=== PATIENT | male | born 1955 | race Caucasian/White ===

== ENCOUNTER 2023-01-31 10:38 | Emergency (ER) | payer MEDICARE, BC, SELFPAY ==
[2023-01-31 10:44] VITALS: BP 160/108; PULSE 85; RESP 16; TEMP 36.5; O2SAT 99; BMI 33.1
--- NOTE | 2023-01-31 11:05 | ED.GIBLEED1 ---
HPI - GI Bleed General Chief complaint: GI Bleed Stated complaint: BLOOD IN STOOL Time Seen by Provider: 01/31/23 10:40 Source: patient Mode of arrival: walk-in Limitations: no limitations History of Present Illness HPI Narrative: 67-year-old male presents for blood in his stool. It happened today and it was bright red. He has no pain anywhere. He is on Eliquis for atrial fibrillation. He had a colonoscopy seven or eight years ago. No fever or vomiting. Related Data Home Medications Medication Instructions Recorded Confirmed apixaban 5 mg tablet (Eliquis) mg 01/31/23 azelastine-fluticasone 137 mcg-50 1 spray intranasal Q12H 01/31/23 01/31/23 mcg/spray nasal spray dofetilide 250 mcg capsule 250 mcg PO Q12H 01/31/23 01/31/23 (Tikosyn) metoprolol succinate 100 mg mg PO 01/31/23 tablet,extended release 24 hr Allergies Allergy/AdvReac Type Severity Reaction Status Date / Time No Known Drug Allergies Allergy Verified 01/31/23 10:44 Review of Systems ROS Narrative A ten point review of systems is negative except as noted above. [facility] Medical History (Updated 01/31/23 @ 13:46 by Waylon Rosario MD) Social History Smoking status: Never smoker Exam Narrative Exam Narrative: Nurses note and vital signs reviewed and patient is not hypoxic. General: The patient appears well and in no apparent distress. Patient is resting comfortably on cart. Skin: Warm, dry, no pallor noted. There is no rash noted. Head: Normocephalic, atraumatic Eye: Normal conjunctiva, no drainage Ears, Nose, Mouth, and Throat: oral mucosa is moist. Nares patent. Cardiovascular: not tachycardic Respiratory: Patient is in no distress, no accessory muscle use, lungs are clear to auscultation, no wheezing, rales or rhonchi Back: non-tender GI: no tenderness to palpation, no masses appreciated. No rebound, guarding, or rigidity noted. perianal examination shows no external hemorrhoids. Musculoskeletal: The patient has no evidence of calf tenderness, no pitting edema, symmetrical pulses noted bilaterally Neurological: A&O, normal speech Psychiatric: Cooperative Constitutional Vital Signs - 24 hr 01/31/23 10:44 01/31/23 10:58 01/31/23 12:29 Temperature 97.7 F Pulse Rate [Monitor] 85 Respiratory Rate 16 Blood Pressure 144/82 H Blood Pressure [Right Arm] 160/108 H Pulse Oximetry 99 Oxygen Delivery Method Room Air Room Air 01/31/23 12:30 Temperature Pulse Rate [Monitor] Respiratory Rate Blood Pressure Blood Pressure [Right Arm] Pulse Oximetry Oxygen Delivery Method Room Air Course Vital Signs Vital signs: Vital Signs Temperature 97.7 F 01/31/23 10:44 Pulse Rate 85 01/31/23 10:44 Respiratory Rate 16 01/31/23 10:44 Blood Pressure 160/108 H 01/31/23 10:44 Pulse Oximetry 99 01/31/23 10:44 Oxygen Delivery Method Room Air 01/31/23 10:44 Temperature 97.7 F 01/31/23 10:44 Pulse Rate 85 01/31/23 10:44 Respiratory Rate 16 01/31/23 10:44 Blood Pressure 144/82 H 01/31/23 12:29 Pulse Oximetry 99 01/31/23 10:44 Oxygen Delivery Method Room Air 01/31/23 12:30 MDM - GI Bleed MDM Narrative Medical decision making narrative: Hemoglobin is normal and CAT scan shows no acute findings. He'll be admitted for observation. Treatment diagnosis and disposition were discussed with the patient. Differential Diagnosis Differential diagnosis: Likely hemorrhoids, Upper gastrointestinal hemorrhage and Lower gastrointestinal hemorrhage Lab Data Attestation: I reviewed the patient's lab results. Labs: Lab Results 01/31/23 Range/Units 11:05 WBC 4.6 (4.0-11.0) 10^3/uL RBC 4.39 L (4.70-6.10) 10^6/uL Hgb 14.9 (14.0-18.0) g/dL Hct 43.7 (42.0-54.0) % MCV 99.5 H (80.0-94.0) fL MCH 33.9 (25.9-34.0) pg MCHC 34.1 (29.9-35.2) g/dL RDW 12.7 (11.0-15.0) % Plt Count 118 L (150-450) 10^3/uL MPV 10.0 (9.5-13.5) fL Neutrophils # (Manual) 39.00 H (1.4-6.5) 10^3/uL Lymphocytes # (Manual) 40.00 H (1.20-3.80) 10^3/uL Monocytes # (Manual) 13.00 H (0.30-0.80) 10^3/uL Eosinophils # (Manual) 7.00 H (0.00-0.70) 10^3/uL Basophils # (Manual) 1.00 H (0.00-0.10) 10^3/uL Nucleated RBCs 0 Sodium 138 (136-145) mmol/L Potassium 3.8 (3.5-5.1) mmol/L Chloride 105 (98-107) mmol/L Carbon Dioxide 29.2 (21.0-32.0) mmol/L Anion Gap 7.6 BUN 7.0 (7.0-18.0) mg/dL Creatinine 0.81 (0.70-1.30) mg/dL Est GFR ( Amer) >60 (>=60) Est GFR (Non-Af Amer) >60 (>=60) BUN/Creatinine Ratio 8.6 Glucose 148 H (74-106) mg/dL Calcium 9.3 (8.5-10.1) mg/dL Imaging Data CT scan - abdomen: Attestation: I have reviewed the pertinent imaging results. (CT scan per radiologist shows diverticulosis without diverticulitis and no acute findings.) Discharge Plan Discharge Chief Complaint: GI Bleed Clinical Impression: Lower gastrointestinal hemorrhage Patient Disposition: Admitted as Observation Time of Disposition Decision: 13:46 Condition: Good Prescriptions / Home Meds: No Action metoprolol succinate 100 mg tablet extended release 24 hr PO Eliquis 5 mg tablet dofetilide [Tikosyn] 250 mcg capsule 250 mcg PO Q12H azelastine-fluticasone 137-50 mcg/spray spray,non-aerosol 1 spray intranasal Q12H Rx Instructions: administer into each nostril Referrals: ERIN OWENS [Primary Care Provider] - 1 week
[2023-01-31 11:39] LABS: Hematocrit 43.7 % (42.0-54.0); Hemoglobin 14.9 g/dL (14.0-18.0); Mean Corpuscular HGB Conc 34.1 g/dL (29.9-35.2); Mean Corpuscular Hemoglobin 33.9 pg (25.9-34.0); Mean Corpuscular Volume 99.5 fL (80.0-94.0); Nucleated Red Blood Cells 0; Platelet Count 118 10^3/uL (150-450); Red Blood Count 4.39 10^6/uL (4.70-6.10); Red Cell Distribution Width 12.7 % (11.0-15.0); White Blood Count 4.6 10^3/uL (4.0-11.0)
[2023-01-31 11:47] LABS: Anion Gap 7.6; BUN Creatinine Ratio 8.6; Calcium 9.3 mg/dL (8.5-10.1); Carbon Dioxide 29.2 mmol/L (21.0-32.0); Chloride 105 mmol/L (98-107); Estimated GFR (African America >60 (>=60); Estimated GFR (Non-African Ame >60 (>=60); Glucose 148 mg/dL (74-106); Potassium 3.8 mmol/L (3.5-5.1); Sodium 138 mmol/L (136-145)
--- NOTE | 2023-01-31 12:14 | CT_ITS ---
[address] [address] Patient Name: SAMUEL MAYERS MRN: [id number] date: 1955 Sex: M Assigned Patient Location: ER Current Patient Location: Accession/Order Number: [id number] Exam Date: 01/31/2023 12:01 Report Date: 01/31/2023 12:36 At the request of: DWAYNE MONTAÑO Procedure: CT abdomen pelvis w con EXAM: CT abdomen pelvis w con; [id number] REASON FOR EXAM: rectal bleeding TECHNIQUE: Helical CT images of the abdomen and pelvis were obtained after the administration of IV contrast. Multiplanar reformats were generated at the scanner. Dose reduction technique used: Automated exposure control and/or adjustment of the mA and/or kV according to patient size and/or use of iterative reconstruction technique. COMPARISON: CT abdomen/pelvis 07/07/2020. FINDINGS: Visualized Chest: No pleural effusion or any significant pulmonary findings. Abdomen: Liver: No suspicious lesion. Gallbladder: Resected. Bile Ducts: No significant biliary ductal dilatation. Pancreas: No mass, ductal dilatation, or inflammatory changes. Spleen: Mildly enlarged at 16.6 cm, previously 15.1 cm on 07/07/2020. Adrenals: No nodules. Kidneys: -There are 3 nonobstructing stones in the right kidney measuring up to 3 mm. -There are 10 nonobstructing stones in the left kidney with the largest measuring up to 6 mm. One of the stones which measures 6 x 5 mm located in the renal pelvis (series 3 image 62). -There are 2 small stones measuring up to 4 mm in the the bladder near the right ureterovesical junction (series 3 image 125) compatible with layering bladder stones (not within the distal ureter, confirmed on the delayed scanning through the pelvis). -No hydronephrosis. Vascular: No aortic aneurysm. Lymph Nodes: No adenopathy. Abdominal Wall: Medium sized fat-containing right inguinal hernia and small fat-containing left inguinal hernia. Pelvis: No mass or adenopathy. Bowel/Peritoneal Cavity/Mesentery: -Moderate sigmoid diverticulosis without evidence of acute diverticulitis. -No bowel obstruction or significant ileus. -No acute inflammatory changes. -No free air or free fluid. Musculoskeletal: No acute fracture or suspicious osseous lesion. 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 Bilateral pars defects at L4 with grade 2 (25-50%) anterolisthesis of L4 and L5, similar compared with 2019. IMPRESSION: 1. No acute intra-abdominal abnormality demonstrated. 2. Numerous bilateral nonobstructing kidney stones (as well as one within the left renal pelvis near the ureteropelvic junction) without evidence of hydronephrosis. 3. Moderate sigmoid diverticulosis without evidence of acute diverticulitis. 4. Mild/moderate splenomegaly, mildly worse compared with 07/07/2020. Electronically authenticated by: AMALIA RAZA Date: 01/31/2023 12:36
[2023-01-31 12:29] VITALS: BP 144/82
[2023-01-31 14:00] VITALS: BP 168/88; PULSE 83; RESP 14; O2SAT 98
--- NOTE | 2023-01-31 14:01 | PC.NURSE ---
pt uses restroom and informs this nurse that the blood is coming from urine. ER DR informed of this and urine requested form pt. Pt denies having blood on toilet paper after wiping this morning and pt is also unsure where blood came from this morning since pt was sitting on toilet having both movements this morning.
[2023-01-31 14:44] LABS: Bilirubin Urine NEGATIVE (NEGATIVE); Blood Urine LARGE (NEGATIVE); Clarity Urine CLEAR (CLEAR); Color Urine DK. RED (YELLOW); Glucose Urine UA NEGATIVE (NEGATIVE); Ketones Urine TRACE mg/dL (NEGATIVE); Leukocyte Esterase Urine TRACE (NEGATIVE); Nitrite Urine POSITIVE (NEGATIVE); Protein Urine >=300 mg/dL (NEG/TRACE); pH Urine 6.5 (5.0-9.0)
[2023-01-31 14:47] LABS: Urine Microscopic Indicated YES
--- NOTE | 2023-01-31 14:50 | PC.NURSE ---
pt to wait in ER for occult results d/t pt may not need admitted if blood is in urine and pt has kidney stones. Pt aware of this new test and wait
[2023-01-31 14:55] LABS: Occult Blood Negative
[2023-01-31 14:58] LABS: Bacteria Urine TRACE #/HPF (NONE SEEN); RBC Urine >100 #/HPF (0-2)
[2023-01-31 14:59] LABS: Cast Seen? NONE SEEN #/LPF (NONE SEEN); Crystals Seen? None Seen #/HPF (None Seen); Mucus Urine NONE SEEN (NONE SEEN); Sperm Urine SEEN; Squamous Epithelial Cell Urine RARE #/LPF (NONE/RARE); Urine Culture Indicated YES; WBC Urine 0-2 #/HPF (NONE SEEN)
--- NOTE | 2023-01-31 15:06 | P.IMPN_ITS ---
Internal Medicine - PN: Subj Subjective Interval history: Patient was originally admitted for acute LGIB from ED and while in ED, he was noted to have hematuria likely from renal stone. Patient is being d/c from ED and will leave home w/o being seen or evaluated by hospitalist team. Exam Constitutional Vital Signs - 24 hr 01/31/23 10:44 01/31/23 10:58 01/31/23 12:29 Temperature 97.7 F Pulse Rate Pulse Rate [Monitor] 85 Respiratory Rate 16 Blood Pressure 144/82 H Blood Pressure [Right Arm] 160/108 H Pulse Oximetry 99 Oxygen Delivery Method Room Air Room Air 01/31/23 12:30 01/31/23 14:00 Temperature Pulse Rate 83 Pulse Rate [Monitor] Respiratory Rate 14 Blood Pressure 168/88 H Blood Pressure [Right Arm] Pulse Oximetry 98 Oxygen Delivery Method Room Air Internal Medicine - PN: Obj Da Labs Labs: Laboratory Results - last 24 hr 01/31/23 01/31/23 01/31/23 11:05 14:15 14:47 WBC 4.6 RBC 4.39 L Hgb 14.9 Hct 43.7 MCV 99.5 H MCH 33.9 MCHC 34.1 RDW 12.7 Plt Count 118 L MPV 10.0 Neutrophils # (Manual) 39.00 H Lymphocytes # (Manual) 40.00 H Monocytes # (Manual) 13.00 H Eosinophils # (Manual) 7.00 H Basophils # (Manual) 1.00 H Nucleated RBCs 0 Sodium 138 Potassium 3.8 Chloride 105 Carbon Dioxide 29.2 Anion Gap 7.6 BUN 7.0 Creatinine 0.81 Est GFR ( Amer) >60 Est GFR (Non-Af Amer) >60 BUN/Creatinine Ratio 8.6 Glucose 148 H Calcium 9.3 Urine Color Dk. red Urine Clarity Clear Urine pH 6.5 Ur Specific [place] 1.010 Urine Protein >=300 A Urine Glucose (UA) Negative Urine Ketones Trace A Urine Occult Blood Large A Urine Nitrite Positive A Urine Bilirubin Negative Urine Urobilinogen 2.0 A Ur Leukocyte Esterase Trace A Urine RBC >100 A Urine WBC 0-2 A Ur Squamous Epith Cells Rare Urine Crystals None seen Urine Bacteria Trace A Urine Casts None seen Urine Mucus None seen Urine Sperm Seen Ur Culture Indicated? Yes Stool Occult Blood Negative
== END 2023-01-31 15:40 | disposition home or self-care (01) ==
PROVIDERS: Emergency Provider Emergency Medicine; PCP Family Medicine
DX: K92.2 Gastrointestinal hemorrhage, unspecified (principal); R31.9 Hematuria, unspecified; Z79.899 Other long term (current) drug therapy; Z79.01 Long term (current) use of anticoagulants; I48.91 Unspecified atrial fibrillation
CPT/HCPCS: 36415; 74177; 80048; 81003; 81015; 85014; 85018; 85027; 87086; 99284; G0328; Q9967

== ENCOUNTER 2023-05-20 10:54 | Outpatient (OUT) | payer MEDICARE, BC, SELFPAY ==
--- NOTE | 2023-05-20 11:18 | CA_ITS ---
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 Tachycardia - max rate was 190 bpm - 63 episodes of PSVT with longest episode of 1759 beats - longest episode of 15min 28sec with rates between 114-123 bpm Bradycardia - min rate was 60 bpm Ventricular ectopy - 10,711 total (3%) - 7,238 PVC - 966 couplets - 144 bigeminy - 1,695 trigeminy NSVT - 161 episodes with longest episode of 9 beats Atrial fibrillation - longest episode of 7h 52min 7sec - 32% total Patient triggered events: 2 - associated with NSR Impression: Predominant rhythm is sinus rhythm with paroxysmal atrial fibrillation and episodes of NSVT with an overall average rate of 97 bpm Fastest rate of 190 during episode of NSVT and slowest rate of 60 bpm. Atrial fibrillation present 32% total time 161 episodes of NSVT w/ longest episode of 9 beats No blocks or pauses Electronically Signed On 06-05-2023 7:33:48 EDT by RAMAN RODRÍGUEZ
== END 2023-05-20 10:55 | disposition home or self-care (01) ==
LOC: CARD 10:56
PROVIDERS: PCP Family Medicine
DX: I49.9 Cardiac arrhythmia, unspecified (principal); I48.0 Paroxysmal atrial fibrillation
CPT/HCPCS: 93242

== ENCOUNTER 2024-04-06 10:15 | Emergency (ER) | payer MEDICARE, BC, SELFPAY ==
[2024-04-06 10:22] VITALS: BP 150/103; PULSE 121; TEMP 36.9; O2SAT 98; BMI 33.0
--- NOTE | 2024-04-06 10:28 | ED.GENADUL1 ---
HPI HPI - General Adult General Chief complaint: Back Pain/Injury Stated complaint: BACK PAIN Time Seen by Provider: 04/06/24 10:21 Source: patient Mode of arrival: walk-in Limitations: no limitations History of Present Illness HPI narrative: The patient presents to us with a left-sided flank pain that been going on at least for a week. Patient mentioned that there is no radiation of the pain he mentioned also they have no fever or chills or any burning with urination Patient denies any nausea or vomiting associated with the pain And he mentioned that he have a history of kidney stones with similar pain before Related Data Home Medications ?Medication ?Instructions ?Recorded ?Confirmed apixaban 5 mg tablet (Eliquis) mg 01/31/23 azelastine 137 mcg-fluticasone 50 1 spray intranasal Q12H 01/31/23 01/31/23 mcg/spray nasal spray dofetilide 250 mcg capsule 250 mcg PO Q12H 01/31/23 01/31/23 (Tikosyn) metoprolol succinate 100 mg mg PO 01/31/23 tablet,extended release 24 hr Previous Rx's ?Medication ?Instructions ?Recorded tamsulosin 0.4 mg capsule (Flomax) 0.4 mg PO DAILY #10 caps 04/06/24 Allergies Allergy/AdvReac Type Severity Reaction Status Date / Time No Known Drug Allergies Allergy Verified 04/06/24 10:22 Opioid HPI Opioid Management Most Recent Opioid Data: Last Pain Scale 1 04/06/24 10:39 Last MAR Pain Assessment 04/06/24 10:33 Review of Systems ROS Status of ROS 10 or more systems reviewed and unremarkable except as noted in history and below [facility] Medical History (Updated 04/06/24 @ 11:40 by Nanda Lopez MD) Hypertension ?I10 - Essential (primary) hypertension (ICD-10) Afib ?I48.91 - Unspecified atrial fibrillation (ICD-10) Social History Smoking status: Never smoker Exam Narrative Exam Narrative: Nurses notes and vital signs reviewed and patient is not hypoxic. General: Well-appearing and in no apparent distress. Skin: Warm, dry, no pallor noted. No rash. Head: Normocephalic, atraumatic. Neck: Supple, non-tender. Eye: Pupils are equal, round and EOMI. No scleral icterus. Ears, Nose, Mouth, and Throat: TM are clear, no nasal mucosal hypertrophy. Oral mucosa is moist, no posterior oropharynx erythema, uvula is mid-line Cardiovascular: Regular Rate and Rhythm without murmur, gallop or rub. Respiratory: No accessory muscle use or respiratory distress. Lungs are clear to auscultation, no wheezing, rales or rhonchi Chest Wall: no tenderness Back: No midline thoracic or lumbar vertebral tenderness. Left CVA tenderness Musculoskeletal: normal ROM, no calf or popliteal tenderness, no lower extremity edema/swelling GI: Abdomen is soft, non-distended. Normal bowel sounds. No masses appreciated. No tenderness to palpation. No rebound, guarding, or rigidity noted. Neurological: A&O x4. No cranial nerve dysfunction observed. No truncal ataxia. Moves all extremities. Sensation intact. Psychiatric: Cooperative and interactive. Normal mood and affect. Constitutional Vital Signs, click to edit/add: Last Vital Signs Temp 98.5 F 04/06/24 10:22 Pulse 74 04/06/24 11:41 Resp 18 04/06/24 11:41 BP 154/75 H 04/06/24 11:41 Pulse Ox 99 04/06/24 11:41 O2 Del Method Room Air 04/06/24 10:22 Course Vital Signs Vital signs: Vital Signs Temperature 98.5 F 04/06/24 10:22 Pulse Rate 121 H 04/06/24 10:22 Respiratory Rate 18 04/06/24 10:22 Blood Pressure 150/103 H 04/06/24 10:22 Pulse Oximetry 98 04/06/24 10:22 Oxygen Delivery Method Room Air 04/06/24 10:22 Temperature 98.5 F 04/06/24 10:22 Pulse Rate 74 04/06/24 11:41 Respiratory Rate 18 04/06/24 11:41 Blood Pressure 154/75 H 04/06/24 11:41 Pulse Oximetry 99 04/06/24 11:41 Oxygen Delivery Method Room Air 04/06/24 10:22 Medical Decision Making MDM Narrative Medical decision making narrative: Patient CBC and chemistry showed no acute significant pathology except for some change in his LFTs that was discussed with him and he did mention that he drinks alcohol daily and I did explain to him that this mild elevation in the AST and ALT could be secondary to that he need to follow-up with his primary care doctor after hydration Patient also had a finding on the CAT scan of possible passed kidney stone which can make sense of his symptoms but the patient have no obstructing kidney stone he was provided with Flomax prescription The patient instructed about in case of any fever chills or increasing pain he is to come to the ER Also I discussed with the patient the CAT scan finding of his lumbar level possible foraminal stenosis although the patient have no alarming symptoms and no weakness or any pain going down his legs The patient was provided with a CAT scan report to provide to his primary care for further evaluation And he was well-educated about the symptoms that we will bring him back to the ER The patient is to follow up with primary care physician in next 2-3 days or to return to the emergency department should any of the signs or symptoms worsen or new symptoms develop. The patient agrees with the following Diagnosis and Treatment plan and the patient will be discharged home. Lab Data Labs: Lab Results 04/06/24 04/06/24 Range/Units 10:25 10:30 WBC 5.1 (4.0-11.0) 10^3/uL RBC 4.22 L (4.70-6.10) 10^6/uL Hgb 14.9 (14.0-18.0) g/dL Hct 43.4 (42.0-54.0) % MCV 102.8 H (80.0-94.0) fL MCH 35.3 H (25.9-34.0) pg MCHC 34.3 (29.9-35.2) g/dL RDW 12.5 (11.0-15.0) % Plt Count 106 L (150-450) 10^3/uL MPV 9.8 (9.5-13.5) fL Neut % (Auto) 49.9 (43.0-75.0) % Lymph % (Auto) 25.7 (20.5-60.0) % [place] % (Auto) 11.9 (1.7-12.0) % Eos % (Auto) 11.1 H (0.9-7.0) % Baso % (Auto) 1.2 (0.2-2.0) % Neut # (Auto) 2.6 (1.4-6.5) 10^3/uL Lymph # (Auto) 1.3 (1.2-3.8) 10^3/uL [place] # (Auto) 0.6 (0.3-0.8) 10^3/uL Eos # (Auto) 0.6 (0.0-0.7) 10^3/uL Baso # (Auto) 0.1 (0.0-0.1) 10^3/uL Abs Immat Gran (auto) 0.01 (0.00-0.03) 10^3/uL Imm/Tot Granulo (auto) 0.2 (0.0-0.5) % Sodium 137 (136-145) mmol/L Potassium 3.9 (3.5-5.1) mmol/L Chloride 99 (98-107) mmol/L Carbon Dioxide 33.6 H (21.0-32.0) mmol/L Anion Gap 8.3 BUN 8.0 (7.0-18.0) mg/dL Creatinine 0.80 (0.70-1.30) mg/dL Est GFR ( Amer) >60 (>=60) Est GFR (Non-Af Amer) >60 (>=60) BUN/Creatinine Ratio 10.0 Glucose 112 H (74-106) mg/dL Lactate 1.0 (0.4-2.0) mmol/L Calcium 9.5 (8.5-10.1) mg/dL Total Bilirubin 1.1 H (0.2-1.0) mg/dL AST 96 H (15-37) U/L ALT 71 H (16-63) U/L Alkaline Phosphatase 97 (46-116) U/L Total Protein 7.1 (6.4-8.2) g/dL Albumin 3.1 L (3.4-5.0) g/dL Globulin 4.0 g/dL Albumin/Globulin Ratio 0.8 Urine Color Yellow (YELLOW) Urine Clarity Clear (CLEAR) Urine pH 7.0 (5.0-9.0) Ur Specific [place] 1.015 (1.005-1.025) Urine Protein Negative (NEG/TRACE) mg/dL Urine Glucose (UA) Negative (NEGATIVE) mg/dL Urine Ketones Negative (NEGATIVE) mg/dL Urine Occult Blood Negative (NEGATIVE) Urine Nitrite Negative (NEGATIVE) Urine Bilirubin Negative (NEGATIVE) Urine Urobilinogen 1.0 (0.2-1.0) EU/dL Ur Leukocyte Esterase Negative (NEGATIVE) Discharge Plan Discharge Stand Alone Forms: Work/School Release, Portal Instructions Chief Complaint: Back Pain/Injury Clinical Impression: Kidney stone Patient Disposition: Home, Self-Care Time of Disposition Decision: 11:40 Condition: Good Prescriptions / Home Meds: New tamsulosin [Flomax] 0.4 mg capsule 0.4 mg PO DAILY Qty: 10 0RF No Action metoprolol succinate 100 mg tablet extended release 24 hr PO Eliquis 5 mg tablet dofetilide [Tikosyn] 250 mcg capsule 250 mcg PO Q12H azelastine-fluticasone 137-50 mcg/spray spray,non-aerosol 1 spray intranasal Q12H Rx Instructions: administer into each nostril Print Language: Chilean Instructions: Kidney Stones (ED) Referrals: ERIN OWENS [Primary Care Provider] - 1 week Discharge Date/Time: 04/06/24 11:48
[2024-04-06] MEDS: KETOROLAC TROMETHAMINE 30 MG/ML VIAL 15 MG IVP (10:33)
[2024-04-06] MEDS: 0.9 % SODIUM CHLORIDE 1,000 ML 1000 ML IV (10:33)
[2024-04-06 10:41] LABS: Basophils Absolute Auto 0.1 10^3/uL (0.0-0.1); Basophils Percent Auto 1.2 % (0.2-2.0); Eosinophils Absolute Auto 0.6 10^3/uL (0.0-0.7); Eosinophils Percent Auto 11.1 % (0.9-7.0); Hematocrit 43.4 % (42.0-54.0); Hemoglobin 14.9 g/dL (14.0-18.0); Immature Granulocytes Abs Auto 0.01 10^3/uL (0.00-0.03); Immature Granulocytes Pct Auto 0.2 % (0.0-0.5); Lymphocytes Absolute Auto 1.3 10^3/uL (1.2-3.8); Lymphocytes Percent Auto 25.7 % (20.5-60.0); Mean Corpuscular HGB Conc 34.3 g/dL (29.9-35.2); Mean Corpuscular Hemoglobin 35.3 pg (25.9-34.0); Mean Corpuscular Volume 102.8 fL (80.0-94.0); Mean Platelet Volume 9.8 fL (9.5-13.5); Monocytes Absolute Auto 0.6 10^3/uL (0.3-0.8); Monocytes Percent Auto 11.9 % (1.7-12.0); Neutrophils Absolute Auto 2.6 10^3/uL (1.4-6.5); Neutrophils Percent Auto 49.9 % (43.0-75.0); Platelet Count 106 10^3/uL (150-450); Red Blood Count 4.22 10^6/uL (4.70-6.10); Red Cell Distribution Width 12.5 % (11.0-15.0); White Blood Count 5.1 10^3/uL (4.0-11.0)
[2024-04-06 10:42] LABS: Bilirubin Urine NEGATIVE (NEGATIVE); Blood Urine NEGATIVE (NEGATIVE); Clarity Urine CLEAR (CLEAR); Color Urine YELLOW (YELLOW); Glucose Urine UA NEGATIVE (NEGATIVE); Ketones Urine NEGATIVE (NEGATIVE); Leukocyte Esterase Urine NEGATIVE (NEGATIVE); Nitrite Urine NEGATIVE (NEGATIVE); Protein Urine NEGATIVE (NEG/TRACE); Specific Gravity Urine 1.015 (1.005-1.025)
[2024-04-06 10:45] LABS: Urine Microscopic Indicated NO
--- NOTE | 2024-04-06 10:49 | CT_ITS ---
[address] [address] Patient Name: SAMUEL MAYERS MRN: [id number] date: 1955 Sex: M Assigned Patient Location: ER Current Patient Location: .MAIN Accession/Order Number: [id number] Exam Date: 04/06/2024 10:43 Report Date: 04/06/2024 11:22 At the request of: MAHNAZ NORIEGA Procedure: CT abdomen pelvis wo con EXAMINATION: CT abdomen pelvis wo con HISTORY: left flank pain COMPARISON: No relevant comparison available. TECHNIQUE: Axial, Coronal, and Sagittal images were obtained without and/or with IV contrast as indicated by examination type. Dose reduction techniques were achieved by using automated exposure control and/or adjustment of mA and/or kV according to patient size and/or use of iterative reconstruction technique. FINDINGS: LUNG BASES: No visible pulmonary or pleural disease. LIVER: No enlargement, atrophy, suspicious density, or significant focal lesion. BILIARY: Cholecystectomy. PANCREAS: No lesion, fluid collection, or abnormal duct dilatation. SPLEEN: Enlarged, 17.1 cm ADRENALS: No mass or enlargement. KIDNEYS: Several nonobstructing stones within kidneys bilaterally, largest is on left, 6 mm. No ureteral stones or abnormal dilation. BOWEL/MESENTERY: A few small diverticula scattered along the length of the colon. No visible mass, obstruction, or bowel wall thickening. Normal appendix. AORTA/VASCULAR: No aneurysm or dissection. RETROPERITONEUM: No mass or adenopathy. LYMPH NODES: No adenopathy. URINARY BLADDER: 5 mm stone within the bladder. Mild circumferential wall thickening of the bladder, although the bladder is not well-distended. PELVIC ORGANS: No visible mass. Pelvic organs appropriate for patient age. ABDOMINAL WALL: No mass or hernia. BONES: 10 mm anterior listhesis of L4 on 5 to bilateral pars interarticularis defects. OTHER: Negative. CT/CT abdomen pelvis wo con IMPRESSION: 1. Bilateral nonobstructing nephrolithiasis. 2. Within the urinary bladder is a 5 mm stone; possibly recent passage of a stone. 3. Mild wall thickening of the urinary bladder; lack of distention versus muscular hypertrophy. 4. Splenomegaly. 5. Grade 2 anterolisthesis of L5 on S1 secondary to bilateral pars interarticularis defects. Marked foramen narrowing L4-5 and L5-S1. Electronically authenticated by: JOSE M ASHLEY Date: 04/06/2024 11:22
[2024-04-06 10:54] LABS: Alanine Aminotransferase 71 U/L (16-63); Albumin Globulin Ratio 0.8; Albumin Level 3.1 g/dL (3.4-5.0); Alkaline Phosphatase 97 U/L (46-116); Anion Gap 8.3; Aspartate Amino Transferase 96 U/L (15-37); Bilirubin Total 1.1 mg/dL (0.2-1.0); Calcium 9.5 mg/dL (8.5-10.1); Carbon Dioxide 33.6 mmol/L (21.0-32.0); Chloride 99 mmol/L (98-107); Estimated GFR (African America >60 (>=60); Estimated GFR (Non-African Ame >60 (>=60); Glucose 112 mg/dL (74-106); Potassium 3.9 mmol/L (3.5-5.1); Sodium 137 mmol/L (136-145); Total Protein 7.1 g/dL (6.4-8.2)
[2024-04-06 11:41] VITALS: BP 154/75; PULSE 74; O2SAT 99
== END 2024-04-06 11:48 | disposition home or self-care (01) ==
PROVIDERS: Emergency Provider Emergency Medicine; PCP Family Medicine
DX: N20.0 Calculus of kidney (principal); Z87.442 Personal history of urinary calculi
CPT/HCPCS: 36415; 74176; 80053; 81003; 83605; 85025; 96374; 99284; J1885

== ENCOUNTER 2024-12-09 10:23 | Outpatient (OUT) | payer MEDICARE, BC, SELFPAY ==
--- NOTE | 2024-12-09 10:29 | XR_ITS ---
The [address] [address] Patient Name: SAMUEL MAYERS MRN: [id number] date: 1955 Sex: M Assigned Patient Location: [facility] Current Patient Location: [facility] Accession/Order Number: [id number] Exam Date: 12/09/2024 11:04 Report Date: 12/09/2024 11:05 At the request of: DANNA GAMBOA Procedure: XR foot LT min 3V LEFT FOOT - 3 views CLINICAL HISTORY: Left Foot Pain COMPARISON: None FINDINGS: No focal soft tissue abnormality. Vascular calcifications. No acute bony process is seen. Degenerative changes involving the talonavicular joint. Hallux valgus deformity is present. No bony erosions. Questionable previously post traumatic changes involving the proximal phalanx of the second digit. XR/XR foot LT min 3V IMPRESSION: DEGENERATIVE CHANGES INVOLVING THE LEFT FOOT WITHOUT ACUTE BONY PROCESS. Impression dictated by: Tavon Zuñiga Jr. DRemyORemy 12/09/2024 11:05 AM Dictation Location: [place] [address] Electronically authenticated by: [id number] Y Date: 12/09/2024 11:05
--- NOTE | 2024-12-09 10:29 | XR_ITS ---
The [address] [address] Patient Name: SAMUEL MAYERS MRN: [id number] date: 1955 Sex: M Assigned Patient Location: [facility] Current Patient Location: [facility] Accession/Order Number: [id number] Exam Date: 12/09/2024 11:02 Report Date: 12/09/2024 11:04 At the request of: DANNA GAMBOA Procedure: XR tibia fibula LT 2V LEFT TIBIA AND FIBULA - - 2 views CLINICAL HISTORY: Pain And Swelling Left Lower Leg COMPARISON: None FINDINGS: Partially visualized left TKA without radiographic complication. No acute bony process is seen. Ankle mortise appears intact with previously presumed posttraumatic changes involving the malleoli. Soft tissue swelling. Vascular calcifications. XR/XR tibia fibula LT 2V IMPRESSION: SOFT TISSUE SWELLING WITHOUT ACUTE BONY PROCESS. NO HARDWARE COMPLICATION. Impression dictated by: Tavon Zuñiga Jr., D.ORemy 12/09/2024 11:04 AM Dictation Location: [facility] Electronically authenticated by: [id number] Y Date: 12/09/2024 11:04
== END 2024-12-09 10:24 | disposition home or self-care (01) ==
LOC: RAD 10:24
PROVIDERS: PCP Family Medicine; Visit Provider Physician Assistant
DX: M79.672 Pain in left foot (principal); M79.662 Pain in left lower leg; M79.89 Other specified soft tissue disorders
CPT/HCPCS: 73590; 73630

== ENCOUNTER 2025-04-13 12:37 | Outpatient (OUT) | payer MEDICARE, BC, SELFPAY ==
--- OUTSIDE RECORDS SUMMARY | 2025-04-13 12:50 | XMS_ITS | CCD ---
Author Organization [facility] CliniSyct Care Team Providers Care Ese Teacher Name Role Phone PHYSICIAN, DEFAULT Unavailable Unavailable PHYSICIAN, DEFAULT Unavailable Unavailable JOEL ONEAL Unavailable Unavailable Joel Oneal Unavailable Unavailable Unavailable BAUDILIO MCCOY Attending Unavailable JOEL ONEAL Referring Unavailable JOEL ONEAL Primary Care Unavailable BAUDILIO MCCOY Attending Unavailable JOEL ONEAL Referring Unavailable JOEL ONEAL Primary Care Unavailable BENJAMÍN FARAH Attending Unavailable JOEL ONEAL Referring Unavailable JOEL ONEAL Primary Care Unavailable BENJAMÍN FARAH Attending Unavailable JOEL ONEAL Referring Unavailable JOEL ONEAL Primary Care Unavailable JOEL ONEAL Referring Unavailable JOEL ONEAL Primary Care Unavailable JODEE LIU Attending Unavailable JOSE M WHITTINGTON Attending UnavailJOEL Munoz Primary Care Unavailable JODEE LIU Referring Unavailable JODEE LIU Referring Unavailable JOSE M WHITTINGTON Attending UnavailJOEL Munoz Primary Care Unavailable JOEL ONEAL Referring Unavailable JOEL ONEAL Primary Care Unavailable JODEE LIU Attending Unavailable Unavailable Unavailable MD Joel Oneal Primary Care Provider [phone] MD Ebony Dietrich Emergency Provider [phone] JOEL ONEAL Primary Care Physician [phone] Fernando Nova II Attending Unavailable Joel Oneal Referring Unavailable Joel Oneal Primary Care Unavailable Joel Oneal Primary Care Unavailable Fernando Nova II Referring Unavailable Fernando Nova II Attending Unavailable RENEE, DR HOPSON Consulting Unavailable PRICILLA, DR JOEL Bardales Primary Care Unavailable RENEE, DR HOPSON Attending Unavailable RENEE, DR HOPSON Admitting Unavailable SHAYLEE, DR HERNANDEZ Consulting Unavailable PRICILLA, DR JOEL Bardales Primary Care Unavailable SHAYLEE, DR HERNANDEZ Attending Unavailable JUNE, DR HERNANDEZ Admitting Unavailable ZIEBER, DR JOSE M Gomez Consulting Unavailable ONEAL, DR JOEL Bardales Consulting Unavailable ONEAL, DR JOEL Bardales Primary Care Unavailable ONEAL, DR JOEL Bardales Attending Unavailable ONEAL, DR JOEL Bardales Admitting Unavailable BOYCE, DR VITO Gomez Attending Unavailable BOYCE, DR VITO Gomez Admitting Unavailable BOYCE, DR VITO Gomez Consulting Unavailable ONEAL, DR JOEL Bardales Primary Care Unavailable CHLOE MALDONADO Consulting Unavailable HOY, DR STONE Consulting Unavailable ONEAL, DR JOEL Bardales Attending Unavailable ONEAL, DR JOEL Bardales Admitting Unavailable ONEAL, DR JOEL Bardales Primary Care Unavailable ONEAL, DR JOEL Bardales Consulting Unavailable MARKER, DR GARNICA Consulting Unavailable YAROSH, EBONY Consulting Unavailable POLICARO, SOFI Consulting Unavailable JUNE, DR HERNANDEZ Consulting Unavailable ONEAL, DR JOEL Bardales Primary Care Unavailable JUNE, DR HERNANDEZ Attending Unavailable JUNE, DR HERNANDEZ Admitting Unavailable JUNE, DR HERNANDEZ Consulting Unavailable ONEAL, DR JOEL Bardales Referring Unavailable ONEAL, DR JOEL Bardales Primary Care Unavailable JUNE, DR HERNANDEZ Attending Unavailable JUNE, DR HERNANDEZ Admitting Unavailable ZIEBER, DR JOSE M Gomez Consulting Unavailable ART, RAFFY Consulting Unavailable SHARP, KEENAN Consulting Unavailable GEMBUS, MELANIE Consulting Unavailable ONEAL, DR JOEL Bardales Consulting Unavailable ONEAL, DR JOEL Bardales Primary Care Unavailable ONEAL, DR JOEL Bardales Attending Unavailable ONEAL, DR JOEL Bardales Admitting Unavailable WEST, DR MIRANDA Dias Consulting Unavailable ONEAL, DR JOEL Bardales Primary Care Unavailable ONEAL, DR JOEL Bardales Attending Unavailable ONEAL, DR JOEL Bardales Admitting Unavailable SHAYLEE, Mary Gomez Attending Unavailable JUNE, Mary Gomez Attending Unavailable JUNE, Mary Gomez Attending Unavailable JUNE, Mary Gomez Attending Unavailable JUNE, Mary Gomez Attending Unavailable Unavailable Unavailable Todd Christina Attending Unavailable Todd Christina Admitting Unavailable NON STAFF Primary Care Unavailable Erin Owens MD Primary Care Provider [phone] Erin Owens MD Primary Care Provider FERNANDO NOVA Attending Unavailable FERNANDO NOVA Referring Unavailable ERIN OWENS Primary Care Unavailable JYOTI TIRADO Attending Unavailable FERNANDO NOVA Referring Unavailable ERIN OWENS Primary Care Unavailable JYOTI TIRADO Attending Unavailable ERIN OWENS Primary Care Unavailable Erin Owens MD Unavailable RENU HORVATH Attending Unavailable ERIN OWENS Attending Unavailable ERIN OWENS Attending Unavailable FLORENCE AZAR Attending Unavailable ERIN OWENS Attending Unavailable Erin Owens MD Primary Care Provider [phone] Allergies Allergy Classification Reported Allergen(s) Allergy Type Date of Onset Reaction(s) Facility (18 sources) Erythromycin Drug Allergy 6 [facility] (18 sources) Erythromycin Base Drug Intolerance 3 [facility] Work Phone: Medications Current Medications Medication Drug Class(es) Dates Sig (Normalized) Sig (Original) acyclovir 200 mg oral capsule (18 sources) Herpesvirus Nucleoside Analog DNA Polymerase Inhibitor, Herpes Simplex Virus Nucleoside Analog DNA Polymerase Inhibitor, Herpes Zoster Virus Nucleoside Analog DNA Polymerase Inhibitor Start: 11-11-2022 take 1 capsule by mouth in the morning acyclovir (Zovirax) 200 MG capsule Take 200 mg by mouth in the morning and 200 mg before bedtime. PRN. 11/11/2022 Active [id number] 200 actuat albuterol 0.09 mg/actuat metered dose inhaler (19 sources) beta2-Adrenergic Agonist Start: 12-04-2024 take 1 puff(s) by inhalation every four to six hours as needed Albuterol Sulfate 90 mcg/actuation HFA aerosol inhaler Active 2 PUFF INHALATION EVERY 4-6 HOURS as needed December 04, 2024 12:00am take 2 puff(s) by in halation every six hours for wheezing albuterol HFA (ProAir HFA) 90 mcg/act inhaler Inhale 2 puffs every 6 (six) hours if needed for shortness of breath or wheezing. Active amLODIPine 5 mg oral tablet (9 sources) Dihydropyridine Calcium Channel Meg Start: 06-03-2023 End: 01-12-2024 take 1 tablet by mouth once daily Amlodipine 5 mg tablet Active 5 MG PO Daily November 29, 2023 12:00am Start: 08-07-2021 take 1 tablet by melquiades th once daily amLODIPine Besylate 2.5 MG Oral Tablet TAKE 1 TABLET BY MOUTH EVERY DAY Quantity: 90 Refills: 3 Ordered: 30-Jan-2022 Fernando Nova MD Start : 07-Aug-2021 Active amLODIPine 5 mg / valsartan 160 mg oral tablet (2 sources) Dihydropyridine Calcium Channel Meg, Angiotensin 2 Receptor Meg Start: 08-17-2024 End: 08-17-2025 take 1 tablet by mouth once daily amlodipine-valsartan (Exforge) 5-160 mg tablet Indications: Essential hypertension, benign Take 1 tablet by mouth once daily. 90 tablet 3 08/17/2024 08/17/2025 Active apixaban 5 mg oral tablet (20 sources) Factor Xa Inhibitor Start: 05-29-2020 End: 01-11-2025 take 1 tablet by mouth in the morning apixaban (Eliquis) 5 MG tablet Indications: Paroxysmal atrial fibrillation (CMS/HCC) Take 1 tablet (5 mg) by mouth in the morning and 1 tablet (5 mg) before bedtime. 200 tablet 3 06/28/2024 12/09/2024 Discontinued ascorbic acid 500 mg oral capsule (20 sources) Vitamin C Start: 04-29-2023 Ascorbic Acid (Vitamin C) 500 mg Capsule Active MG PO April 29, 2023 12:00am take 1 tablet by mouth once lawrence y ascorbic acid (Vitamin C) 500 mg tablet Take 1 tablet (500 mg) by mouth once daily. Active take 1 tablet by mouth in the mo rning ascorbic acid (Vitamin C) 500 MG tablet Take 500 mg by mouth in the morning. Active atorvastatin 20 mg oral tablet (11 sources) HMG-CoA Reductase Inhibitor Start: 10-27-2024 take 1 tablet by mouth once daily atorvastatin (Lipitor) 20 MG tablet Indications: Type 2 diabetes mellitus without complications (HCC) , Mixed hyperlipidemia TAKE 1 TABLET BY MOUTH EVERY DAY 100 tablet 1 10/27/2024 Active Start: 08-02-2024 End: 09-01-2024 take 1 tablet by mouth once daily atorvastatin (Lipitor) 20 MG tablet Indications: Type 2 diabetes mellitus without complications (CMS/HCC) , Mixed hyperlipidemia (CMS/HCC) Take 1 tablet (20 mg) by mouth Daily 30 tablet 2 08/02/2024 09/01/2024 Active cholecalciferol 0.025 mg oral capsule (20 sources) Vitamin D Start: 11-29-2023 take 1 capsule by mouth once daily Cholecalciferol (Vitamin D3) 25 mcg (1,000 unit) capsule Active 25 MCG PO Daily November 29, 2023 12:00am End: 04-13-2025 take 1 capsule by mouth once daily cholecalciferol (Vitamin D-3) 50,000 unit capsule Take 1 capsule (50,000 Units) by mouth once daily. 04/13/2025 Discontinued (Entered in Error) take 1 tablet by melquiades th in the morning cholecalciferol (Vitamin D-3) 25 MCG (1000 UT) tablet Take 1,000 Units by mouth in the morning. Active dabigatran etexilate 150 mg oral capsule (13 sources) Start: 09-06-2024 End: 09-06-2025 take 1 capsule by mouth in the morning dabigatran etexilate (Pradaxa) 150 MG capsule Take 150 mg by mouth in the morning and 150 mg in the evening. 09/06/2024 09/06/2025 Active Start: 09-01-2024 End: 04-13-2026 take 1 capsule by mouth twice daily dabigatran etexilate (Pradaxa) 150 mg capsule Indications: Paroxysmal atrial fibrillation (Multi) Take 1 capsule (150 mg) by mouth 2 times a day. Eliquis is to be discontinued 14 capsule 1 04/13/2025 04/13/2026 Active 24 hr dilTIAZem hydrochloride 180 mg extended release oral capsule (20 sources) Calcium Channel Meg Start: 04-29-2023 take 1 tablet by mouth once daily, then take 1 tablet by mouth every twenty-four hours Diltiazem Malate 180 mg Tablet Extended Release 24 Hr Active 180 MG PO Daily April 29, 2023 12:00am Start: 10-02-2022 take 1 capsule by mo [facility] every twenty-four hours in the morning as needed dilTIAZem CD (Cardizem CD) 180 MG 24 hr capsule Take 1 capsule by mouth in the morning. Patient takes as needed for episodes of A. fib. 10/02/2022 Active Start: 04-22-2022 take 1 tablet by melquiades th once daily Cardizem LA 180 mg/24 hours oral tablet, extended release mg tab(s), Oral, Daily, Refills(s) 0 Start Date: 04/22/22 Status: Ordered Start: 10-31-2021 End: 01-11-2025 take 30-34.9 capsules by mouth once daily Tiadylt ER 180 mg 24 hr capsule Indications: Paroxysmal atrial fibrillation (Multi) , Essential hypertension, benign , Anticoagulated , High risk medication use , Obesity (BMI 30.0-34.9) TAKE 1 CAPSULE BY MOUTH EVERY DAY 90 capsule 3 02/24/2024 08/17/2024 Discontinued (Therapy completed) Start: 10-31-2021 dilTIAZem HCl ER Coated Beads 180 MG Oral Capsule Extended Release 24 Hour Quantity: 90 Refills: 0 Ordered: 31-Oct-2021 DO Start : 31-Oct-2021 Active dofetilide 0.25 mg oral capsule (20 sources) Antiarrhythmic Start: 04-29-2023 End: 01-18-2026 take 1 capsule by mouth every twelve hours dofetilide (Tikosyn) 250 mcg capsule Indications: Paroxysmal atrial fibrillation (Multi) Take 1 capsule (250 mcg) by mouth every 12 hours. 180 capsule 3 01/18/2025 01/18/2026 Active Start: 03-17-2023 End: 01-11-2025 take 1 capsule by mouth twice daily dofetilide (Tikosyn) 250 mcg capsule Indications: Paroxysmal atrial fibrillation (Multi) Take 1 capsule (250 mcg) by mouth 2 times a day. 180 capsule 3 01/12/2024 01/11/2025 Active Start: 05-29-2020 take 1 ug by mouth twice daily dofetilide 250 mcg oral capsule mcg cap(s), Oral, BID, Refills(s) 0 Start Date: 05/29/20 Status: Ordered doxycycline hyclate 100 mg oral capsule (9 sources) Tetracycline-class Drug Start: 12-04-2024 End: 03-14-2025 take 1 capsule by mouth in the morning doxycycline (Vibramycin) 100 MG capsule Take 100 mg by mouth in the morning and 100 mg before bedtime. 12/04/2024 03/14/2025 Discontinued (Therapy completed) Fish Oils (18 sources) take 1 capsule by mouth in the morning omega-3 (fish oil) 1200 MG capsule Take 1,200 mg by mouth in the morning. Active 30 actuat fluticasone furoate 0.05 mg/actuat dry powder inhaler (20 sources) Corticosteroid Start: 04-29-2023 Fluticasone Furoate 50 mcg/actuation Blister With Device Active MCG INHALATION April 29, 2023 12:00am Start: 07-03-2021 fluticasone (F lonase) 50 mcg/actuation nasal spray Administer 2 sprays into each nostril if needed. 07/03/2021 Active Start: 07-03-2021 take 2 spray(s) nasa l route once daily Fluticasone Propionate 50 MCG/ACT Nasal Suspension SPRAY 2 SPRAYS INTO EACH NOSTRIL EVERY DAY Quantity: 48 Refills: 0 Ordered: 28-Sep-2021 DO Start : 03-Jul-2021 Active hydroCHLOROthiazide 25 mg oral tablet (14 sources) Thiazide Diuretic Start: 11-29-2023 End: 12-09-2024 take 1 tablet by mouth once daily hydroCHLOROthiazide (HYDRODiuril) 25 MG tablet Indications: Benign essential hypertension (CMS/HCC) Take 1 tablet (25 mg) by mouth Daily 90 tablet 3 05/12/2024 12/09/2024 Discontinued (Other) ibuprofen 200 mg oral tablet (18 sources) Nonsteroidal Anti-inflammator y Drug take 1 tablet by mouth every six hours as needed ibuprofen 200 MG tablet Take 200 mg by mouth every 6 (six) hours if needed. Active krill oil 500 mg oral capsule (12 sources) End: 12-09-2024 take 1 capsule by mouth in the morning Krill Oil ([place]-3) 500 MG capsule Take 500 mg by mouth in the morning. 12/09/2024 Discontinued (Other) metoprolol tartrate 25 mg oral tablet (20 sources) beta-Adrenergic Meg Start: 08-17-2024 End: 12-09-2024 take 1 tablet by mouth every twenty-fou r hours as needed metoprolol tartrate (Lopressor) 25 MG tablet Take 25 mg by mouth Daily as needed (Atrial Fibrillation) 08/17/2024 12/09/2024 Discontinued (Other) Start: 08-17-2024 End: 09-01-2024 metoprolol tartrate (Lopress or) 25 mg tablet Indications: Paroxysmal atrial fibrillation (Multi) Take one tablet as needed for break through a fib, may take an additional tablet if needed one hr later 25 tablet 2 08/17/2024 09/01/2024 Discontinued (Discontinued by another clinician) Start: 06-03-2023 End: 01-11-2025 take 1 tablet by mouth once daily metoprolol succinate XL (Toprol-XL) 50 mg 24 hr tablet Indications: Paroxysmal atrial fibrillation (Multi) , Essential hypertension, benign , Anticoagulated , High risk medication use Take 1 tablet (50 mg) by mouth once daily. 90 tablet 3 01/12/2024 Active Start: 04-29-2023 End: 11-29-2023 take 1 tablet by mouth once daily Metoprolol Succinate 100 mg tablet extended release 24 hr Discontinued 100 MG PO Daily April 29, 2023 12:00am November 29, 2023 1:01pm Start: 06-06-2021 take 1 tablet by melquiades th twice daily Metoprolol Succinate ER 100 MG Oral Tablet Extended Release 24 Hour take 1 tablet by mouth twice a day Quantity: 180 Refills: 3 Ordered: 30-Jan-2022 Fernando Nova MD Start : 06-Jun-2021 Active Start: 05-29-2020 take 1 mg by mouth once daily metoprolol 100 mg ER Tab mg tab(s), Oral, Daily, Refills(s) 0 Start Date: 05/29/20 Status: Ordered Multi Vitamin+ (3 sources) Start: 05-29-2020 Multi Vitamin+ Refill(s) 0 Start Date: 05/29/20 Status: Ordered Multiple Vitamin (multivitamin) tablet (18 sources) take 1 tablet by mouth in the morning Multiple Vitamin (multivitamin) tablet Take 1 tablet by mouth in the morning. Active multivitamin tablet (4 sources) take 1 tablet by mouth once daily multivitamin tablet Take 1 tablet by mouth once daily. Active [place] 7-Mby-Tfc-Fish Oil (Extreme [place]-3) 120-180-600 mg capsule (1 source) Start: 11-29-2023 [place] 3-Dha-Ep a-Fish Oil (Extreme [place]-3) 120-180-600 mg capsule Active CAP PO November 29, 2023 12:00am omega-3 fatty acids-fish oil (One-Per-Day [place]-3) 684-1,200 mg capsule (4 sources) omega-3 fatty acids-fish oil (One-Per-Day [place]-3) 684-1,200 mg capsule Take 1 capsule (1,200 mg) by mouth once daily. Active Potassium Acetate (3 sources) Start: 05-29-2020 potassium acet ate Refills(s) 0 Start Date: 05/29/20 Status: Ordered microencapsulated potassium chloride 20 meq extended release oral tablet (20 sources) Start: 06-03-2023 End: 01-11-2025 take 1 tablet by mouth in the morning KLOR-CON 20 MEQ ER tablet Take 20 mEq by mouth in the morning and 20 mEq before bedtime. 05/21/2024 12/09/2024 Discontinued (Other) Start: 11-02-2021 take 1 tablet by melquiades th once daily Potassium Chloride Lety ER 20 MEQ Oral Tablet Extended Release TAKE 1 TABLET BY MOUTH DAILY Quantity: 90 Refills: 3 Ordered: 30-Jan-2022 Fernando Nova MD Start : 02-Nov-2021 Active resume potassium Start: 11-02-2021 take 1 tablet by melquiadse th once daily Potassium Chloride Lety ER 20 MEQ Oral Tablet Extended Release TAKE 1 TABLET BY MOUTH DAILY Quantity: 90 Refills: 3 Ordered: 02-Nov-2021 Fernando Nova MD Start : 02-Nov-2021 Active resume potassium sildenafil 100 mg oral tablet (17 sources) Phosphodiesterase 5 Inhibitor Start: 06-28-2024 End: 07-28-2024 take 1 tablet by mouth once daily as needed sildenafil (Viagra) 100 MG tablet Indications: Erectile disorder Take 1 tablet (100 mg) by mouth Daily as needed for erectile dysfunction 10 tablet 06/28/2024 Active tiZANidine 2 mg oral capsule (20 sources) Central alpha-2 Adrenergic Agonist Start: 01-03-2025 take 1 capsule by mouth once daily at bedtime as needed tiZANidine (Zanaflex) 2 MG capsule Indications: Chronic bilateral low back pain without sciatica TAKE 1-2 CAPSULES BY MOUTH EVERYDAY AT BEDTIME NEEDED FOR MUSCLE SPASMS 180 capsule 1 01/03/2025 Active Start: 12-09-2024 tiZANidine (Za naflex) 2 MG capsule Indications: Chronic bilateral low back pain without sciatica Take 1-2 capsules (2-4 mg) by mouth as needed at bedtime for muscle spasms 60 capsule 2 12/09/2024 Active Start: 12-09-2024 tiZANidine (Za naflex) 2 MG capsule Indications: Chronic bilateral low back pain without sciatica Take 1-2 capsules (2-4 mg) by mouth as needed at bedtime for muscle spasms 60 capsule 2 12/09/2024 Active Start: 12-09-2024 tiZANidine (Za naflex) 2 MG capsule Indications: Chronic bilateral low back pain without sciatica Take 1-2 capsules (2-4 mg) by mouth as needed at bedtime for muscle spasms 60 capsule 2 12/09/2024 Active Start: 12-09-2024 tiZANidine (Za naflex) 2 MG capsule Indications: Chronic bilateral low back pain without sciatica Take 1-2 capsules (2-4 mg) by mouth as needed at bedtime for muscle spasms 60 capsule 2 12/09/2024 Active Start: 09-19-2021 End: 12-09-2024 tiZANidine (Zanaflex) 2 mg c apsule Take 1-2 capsules (2-4 mg) by mouth as needed at bedtime for muscle spasms. 09/19/2021 Active 1 ml triamcinolone acetonide 40 mg/ml prefilled syringe (8 sources) Corticosteroid Start: 02-01-2025 End: 02-01-2025 triamcinolone acetonide (Kenalog-40) injection 40 mg Start: 02-01-2025 End: 02-01-2025 inject 40 mg by intramuscular injection once 40 mg, Intramuscular, Once, On Fri02/01/25 at 0915, For 1 dose Start: 06-28-2024 End: 06-28-2024 triamcinolone acetonide (Kenalog-40) injection 40 mg Start: 06-28-2024 End: 06-28-2024 triamcinolone acetonide (Kenalog-40) injection 40 mg Start: 06-28-2024 End: 06-28-2024 triamcinolone acetonide (Kenalog-40) injection 40 mg Start: 06-28-2024 End: 06-28-2024 inject 40 mg by intramuscular injection once 40 mg, Intramuscular, Once, On Fri06/28/24 at 0915, For 1 dose valsartan 320 mg oral tablet (10 sources) Angiotensin 2 Receptor Meg Start: 11-30-2024 End: 11-30-2025 take 1 tablet by mouth once daily valsartan (Diovan) 320 mg tablet Indications: Essential hypertension, benign Take 1 tablet (320 mg) by mouth once daily. 90 tablet 3 11/30/2024 11/30/2025 Active Vitamin C 500 mg oral tablet, chewable (3 sources) Start: 05-29-2020 take 1 mg by mouth once daily Vitamin C 500 mg oral tablet, chewable mg tab(s), Chewed, Daily, Refills(s) 0 Start Date: 05/29/20 Status: Ordered Vitamin D (3 sources) Start: 05-29-2020 Vitamin D International_Unit, Oral, qWeek, Refills(s) 0 Start Date: 05/29/20 Status: Ordered Completed/Discontinued Medications Medication Drug Class(es) Dates Sig (Normalized) Sig (Original) acetaminophen 325 mg / oxyCODONE hydrochloride 5 mg oral tablet (2 sources) Opioid Agonist Start: 04-13-2022 End: 04-29-2023 take 1 tablet by mouth every four to six hours as needed for pain Oxycodone-Acetamin ophen (Percocet) 5-325 mg tablet Discontinued 1 - 2 TAB PO EVERY 4-6 HOURS as needed for pain 21 12April 13, 2022 April 29, 2023 1:19pm [place] 3 CAPS (4 sources) [place] 3 CAPS ELISE E 1 CAPSULE Daily Quantity: 0 Refills: 0 Ordered: 03-Jun-2022 DO Active ondansetron 8 mg disintegrating oral tablet (2 sources) Serotonin-3 Receptor Antagonist Start: 04-13-2022 End: 04-29-2023 take 1 tablet by mouth every eight hours as needed for nausea and vomiting Ondansetron 8 mg tablet,disintegrat ing Discontinued 8 MG PO Q8H as needed for nausea and vomiting 05 07April 13, 2022 12:00am April 29, 2023 1:19pm Potassium Chloride (Klor-Con M20) 20 mEq tablet,ER particles/crystals (1 source) Start: 11-29-2023 End: 12-04-2024 Potassium Chloride (Klor-Con M20) 20 mEq tablet,ER particles/crystals Discontinued MEQ PO November 29, 2023 12:00am December 04, 2024 11:56am tamsulosin hydrochloride 0.4 mg oral capsule (2 sources) alpha-Adrenergic Meg Start: 04-13-2022 End: 04-29-2023 take 1 capsule by mouth once daily Tamsulosin (Flomax) 0.4 mg capsule Discontinued 0.4 MG PO Daily April 13, 2022 12:00am April 29, 2023 1:19pm Vitamin C TABS (4 sources) Vitamin C TABS TAKE 1 TABLET DAILY. Quantity: 0 Refills: 0 Ordered: 03-Jun-2022 DO Active Vitamin D3 CAPS (4 sources) Vitamin D3 CAPS TAKE 1 CAPSULE Daily Quantity: 0 Refills: 0 Ordered: 03-Jun-2022 DO Active zinc gluconate 50 mg oral tablet (9 sources) Start: 11-29-2023 End: 04-13-2025 take 1 tablet by mouth once daily Zinc Gluconate 50 mg tablet Discontinued 50 MG PO Daily November 29, 2023 12:00am December 04, 2024 11:56am Problems Active Problems Problem Classification Problem Date Documented Date Episodic/Chronic Asthma (20 sources) Asthma; Translations: [Unspecified asthma, uncomplicated] Onset: 04-29-2022 05-29-2020 Chronic Cardiac dysrhythmias (20 sources) Paroxysmal atrial fibrillation; Translations: [Atrial fibrillation] Onset: 12-26-2016 Resolved: 02-11-2023 05-29-2020 Chronic Coagulation and hemorrhagic disorders (19 sources) Thrombophilia; Translations: [Other thrombophilia] Onset: 06-28-2024 06-28-2024 Chronic Diabetes mellitus without complication (13 sources) Type 2 diabetes mellitus without complication; Translations: [Type 2 diabetes mellitus without complications] Onset: 08-02-2024 08-02-2024 Chronic Diabetes mellitus without complication (4 sources) Hyperglycemia; Translations: [Hyperglycemia, unspecified] Onset: 03-14-2025 03-14-2025 Episodic Diseases of white blood cells (19 sources) Neutropenia; Translations: [Neutropenia, unspecified] Onset: 06-28-2024 06-28-2024 Chronic Disorders of lipid metabolism (20 sources) Hypercholesterolemia; Translations: [Pure hypercholesterolemia, unspecified] Onset: 04-24-2022 05-29-2020 Chronic Esophageal disorders (19 sources) Gastro-esophageal reflux disease without esophagitis; Translations: [Gastroesophageal reflux disease without esophagitis] Onset: 10-05-2021 02-11-2023 Chronic Essential hypertension (20 sources) Benign essential hypertension; Translations: [Benign essential hypertension] Onset: 11-16-2021 05-29-2020 Chronic Headache; including migraine (1 source) Headache; including migraine; Translations: [HEADACHE UNSPECIFIED] Onset: 10-05-2021 Heart valve disorders (19 sources) Nonrheumatic mitral (valve) insufficiency; Translations: [Mitral valve regurgitation] Onset: 10-24-2021 02-11-2023 Chronic Osteoarthritis (18 sources) Osteoarthritis of joint of right shoulder region; Translations: [Primary osteoarthritis, right shoulder] Onset: 02-11-2023 02-11-2023 Chronic Other aftercare (20 sources) Drug therapy finding; Translations: [Long-term (current) use of anticoagulants] Onset: 06-02-2023 01-12-2024 Episodic Other aftercare (20 sources) Taking high risk medication; Translations: [Other mcc (current) drug therapy] Onset: 03-06-2017 01-12-2024 Episodic Other and ill-defined heart disease (3 sources) Heart disease 05-29-2020 Chronic Other and ill-defined heart disease (18 sources) Left ventricular systolic dysfunction; Translations: [Heart disease, unspecified] Onset: 02-11-2023 02-11-2023 Chronic Other and unspecified benign neoplasm (2 sources) Melanocytic nevus of trunk; Translations: [Melanocytic nevi of trunk] 07-08-2024 Episodic Other connective tissue disease (1 source) Presence of unspecified artificial knee joint; Translations: [PRESENCE UNS ARTIFICIAL KNEE [employer]INT] Onset: 10-05-2021 Chronic Other connective tissue disease (2 sources) Pain in left foot; Translations: [Pain in left foot] 12-09-2024 Episodic Other connective tissue disease (2 sources) Pain of left lower leg; Translations: [Pain in left lower leg] 12-09-2024 Episodic Other injuries and conditions due to external causes (1 source) Foreign body in bladder; Translations: [Foreign body in bladder, initial encounter] Onset: 05-07-2022 Episodic Other liver diseases (1 source) Enzyme level - finding; Translations: [Elevated transaminase level] 08-17-2024 Episodic Other male genital disorders (20 sources) Induratio penis plastica; Translations: [Induration penis plastica] Onset: 05-31-2020 05-29-2020 Chronic Other male genital disorders (19 sources) Male erectile dysfunction, unspecified; Translations: [Impotence of organic origin] Onset: 06-28-2024 06-28-2024 Chronic Other male genital disorders (3 sources) Cyst of epididymis 05-29-2020 Episodic Other nutritional; endocrine; and metabolic disorders (7 sources) Obesity; Translations: [Obesity, unspecified] Chronic Other nutritional; endocrine; and metabolic disorders (20 sources) Obese class I; Translations: [Obesity, unspecified] Onset: 03-05-2017 01-12-2024 Chronic Other nutritional; endocrine; and metabolic disorders (2 sources) Obesity, unspecified; Translations: [Obesity, unspecified] Onset: 06-03-2023 Chronic Other skin disorders (2 sources) Seborrheic keratosis; Translations: [Other seborrheic keratosis] 07-08-2024 Episodic Other skin disorders (2 sources) Lentigo simplex; Translations: [Other melanin hyperpigmentation] 07-08-2024 Episodic Other upper respiratory disease (20 sources) Seasonal allergy; Translations: [Other seasonal allergic rhinitis] Onset: 02-11-2023 02-11-2023 Chronic Residual codes; unclassified (20 sources) Obstructive sleep apnea syndrome; Translations: [Obstructive sleep apnea (adult) (pediatric)] Onset: 01-10-2016 02-11-2023 Chronic Residual codes; unclassified (4 sources) Sleep apnea; Translations: [Sleep apnea, unspecified] Onset: 08-17-2024 08-17-2024 Chronic Residual codes; unclassified (2 sources) Sleep apnea, unspecified; Translations: [Sleep apnea, unspecified] Onset: 08-17-2024 Chronic Residual codes; unclassified (2 sources) Obstructive sleep apnea (adult) (pediatric); Translations: [Obstructive sleep apnea (adult) (pediatric)] Onset: 08-17-2024 Chronic Residual codes; unclassified (20 sources) Never smoked tobacco; Translations: [Other specified health status] Onset: 01-12-2024 01-12-2024 Episodic Screening and history of mental health and substance abuse codes (8 sources) Ex-smoker; Translations: [Personal history of tobacco use] Onset: 10-05-2021 Episodic Unclassified (3 sources) Asymptomatic microscopic hematuria 04-22-2022 Unclassified (1 source) CONTACT W/AND (SUSP) EXPOS COVID-19; Translations: [CONTACT W/AND (SUSP) EXPOS COVID-19] Onset: 04-24-2022 Unclassified (1 source) PERSONAL HISTORY OF COVID-19; Translations: [PERSONAL HISTORY OF COVID-19] Onset: 10-05-2021 Unclassified (1 source) Obesity, class 1; Translations: [Obesity, class 1] Onset: 06-03-2023 Past or Other Problems Problem Classification Problem Date Documented Date Episodic/Chronic Abdominal hernia (18 sources) Hiatal hernia; Translations: [Diaphragmatic hernia without obstruction or gangrene] Onset: 02-11-2023 02-11-2023 Episodic Biliary tract disease (18 sources) Cholelithiasis with obstruction; Translations: [Calculus of gallbladder without cholecystitis with obstruction] Onset: 08-01-2020 Resolved: 02-11-2023 02-11-2023 Episodic Calculus of urinary tract (20 sources) Ureteric stone; Translations: [Calculus of ureter] Onset: 04-17-2022 04-13-2022 Episodic Comment on above: Problem List clean-u p per request of Phys. EHR Cmte Cardiac dysrhythmias (20 sources) Palpitations; Translations: [Tachycardia, unspecified] Onset: 10-01-2021 Episodic Genitourinary symptoms and ill-defined conditions (2 sources) Microscopic hematuria; Translations: [Asymptomatic microscopic hematuria] Onset: 04-22-2022 Episodic Hemorrhoids (18 sources) Thrombosed external hemorrhoids; Translations: [Perianal venous thrombosis] Onset: 12-01-2023 12-01-2023 Episodic Intestinal infection (18 sources) Viral gastroenteritis; Translations: [Viral intestinal infection, unspecified] Onset: 12-01-2023 12-01-2023 Episodic Malaise and fatigue (19 sources) Fatigue; Translations: [Other fatigue] Onset: 06-28-2024 06-28-2024 Episodic Nonspecific chest pain (5 sources) Chest pain, unspecified; Translations: [CHEST PAIN UNSPECIFIED] Onset: 10-03-2021 Episodic Other aftercare (3 sources) longterm (current) use of anticoagulants; Translations: [PRODUCE BUYER CURRNT USE ANTICOAGULANTS] Onset: 04-29-2022 Episodic Other aftercare (3 sources) Other termite technician (current) drug therapy; Translations: [OTH PRODUCE BUYER CURRENT DRUG THERAPY] Onset: 04-29-2022 Episodic Other screening for suspected conditions (not mental disorders or infectious disease) (3 sources) Prolonged QT interval; Translations: [Abnormal electrocardiogram [ECG] [EKG]] Onset: 08-17-2024 08-17-2024 Episodic Residual codes; unclassified (18 sources) H/O: atrial fibrillation; Translations: [Other specified postprocedural states] Onset: 01-10-2016 02-11-2023 Episodic Residual codes; unclassified (2 sources) Other specified health status; Translations: [Other specified health status] Onset: 01-12-2024 Episodic Spondylosis; intervertebral disc disorders; other back problems (20 sources) Low back pain; Translations: [Low back pain without sciatica] Onset: 02-11-2023 02-11-2023 Episodic Unclassified (4 sources) Onset: 01-12-2024 Resolved: 04-13-2025 01-12-2024 Unclassified (1 source) Obesity, class 1; Translations: [Obesity, class 1] Onset: 08-17-2024 Results Test Name Value Interpretation Reference Range Facility ECG 12 Leadon 04-13-2025 ECG revealed normal sinus rhythm, voltage criteria for LVH, abnormal ECG [facility] Work Phone: HbA1c (Bld) [Mass fraction]o n 03-14-2025 Interpretation and review of laboratory results [facility] countson 03-14-2025 HbA1c (Bld) [Mass fraction] 5.2 % [facility] XR FOOT LT MIN 3Von 12-10-[address] [place] [address] XRay Report Signed Patient: YANNICK MAYERS MR#: [id number] : 1955 Acct:[id number] Age/Sex: 69 / M ADM Date: 12/09/24 Loc: RAD Attending Dr: RENU HORVATH Ordering Physician: RENU HORVATH Date of Service: 12/09/24 Procedure(s): XR foot LT min 3V Accession Number(s): [id number] cc: ERIN OWENS ; RENU HORVATH [address] [id number] Patient Name: YANNICK MAYERS MRN: [facility]:[id number] date: 1955 Sex: M Assigned Patient Location: [facility] Current Patient Location: [facility] Accession/Order Number: [id number] Exam Date: 12/09/2024 11:04 Report Date: 12/09/2024 11:05 At the request of: RENU HORVATH Procedure: XR foot LT min 3V LEFT FOOT - 3 views CLINICAL HISTORY: Left Foot Pain COMPARISON: None FINDINGS: No focal soft tissue abnormality. Vascular calcifications. No acute bony process is seen. Degenerative changes involving the talonavicular joint. Hallux valgus deformity is present. No bony erosions. Questionable previously post traumatic changes involving the proximal phalanx of the second digit. XR/XR foot LT min 3V IMPRESSION: DEGENERATIVE CHANGES INVOLVING THE LEFT FOOT WITHOUT ACUTE BONY PROCESS. Impression dictated by: Tavon Zuñiga Jr., D.ORemy 12/09/2024 11:05 AM Dictation Location: [place] [address] Electronically authenticated by: [id number] Y Date: 12/09/2024 11:05 Dictated By: Tavon Zuñiga M.D. Signed By: 12/09/24 1107 DD/ 1105 TD/TT: Church History Professor: [facility] Radiology, Radiologist, MD - 12/09/2024 [place] [address] XRay Report Signed Patient: YANNICK MAYERS MR#: [id number] : 1955 Acct:[id number] Age/Sex: 69 / M ADM Date: 12/09/24 Loc: [facility] Attending Dr: RENU HORVATH Ordering Physician: RENU HORVATH Date of Service: 12/09/24 Procedure(s): XR foot LT min 3V Accession Number(s): [id number] cc: ERIN OWENS ; RENU HORVATH [place] [id number] Patient Name: YANNICK MAYERS MRN: [facility]:[id number] date: 1955 Sex: M Assigned Patient Location: [facility] Current Patient Location: [facility] Accession/Order Number: [id number] Exam Date: 12/09/2024 11:04 Report Date: 12/09/2024 11:05 At the request of: RENU HORVATH Procedure: XR foot LT min 3V LEFT FOOT - 3 views CLINICAL HISTORY: Left Foot Pain COMPARISON: None FINDINGS: No focal soft tissue abnormality. Vascular calcifications. No acute bony process is seen. Degenerative changes involving the talonavicular joint. Hallux valgus deformity is present. No bony erosions. Questionable previously post traumatic changes involving the proximal phalanx of the second digit. XR/XR foot LT min 3V IMPRESSION: DEGENERATIVE CHANGES INVOLVING THE LEFT FOOT WITHOUT ACUTE BONY PROCESS. Impression dictated by: Tavon Zuñiga Jr., D.ORemy 12/09/2024 11:05 AM Dictation Location: [place] [address] Electronically authenticated by: [id number] Y Date: 12/09/2024 11:05 Dictated By: Tavon Zuñiga M.D. Signed By: 12/09/24 1107 DD/ 1105 TD/TT: Church History Professor: [facility] [employer] Radiology Study observation (narrative) [facility] XR FOOT LT MIN 3VOrdered By: Radiologist Radiology on 12-09-2024 [facility] [employer] Work Phone: XR TIBIA FIBULA LT 2Von [address] [place] [id number] XRay Report Signed Patient: YANNICK MAYESR MR#: [id number] : 1955 Acct:[id number] Age/Sex: 69 / M ADM Date: 12/09/24 Loc: RAD Attending Dr: RENU HORVATH Ordering Physician: RENU HORVATH Date of Service: 12/09/24 Procedure(s): XR tibia fibula LT 2V Accession Number(s): [id number] cc: ERIN OWENS ; RENU HORVATH [address] [address] Patient Name: YANNICK MAYERS MRN: [facility]:[id number] date: 1955 Sex: M Assigned Patient Location: RAD Current Patient Location: RAD Accession/Order Number: [id number] Exam Date: 12/09/2024 11:02 Report Date: 12/09/2024 11:04 At the request of: RENU HORVATH Procedure: XR tibia fibula LT 2V LEFT TIBIA AND FIBULA - - 2 views CLINICAL HISTORY: Pain And Swelling Left Lower Leg COMPARISON: None FINDINGS: Partially visualized left TKA without radiographic complication. No acute bony process is seen. Ankle mortise appears intact with previously presumed posttraumatic changes involving the malleoli. Soft tissue swelling. Vascular calcifications. XR/XR tibia fibula LT 2V IMPRESSION: SOFT TISSUE SWELLING WITHOUT ACUTE BONY PROCESS. NO HARDWARE COMPLICATION. Impression dictated by: Tavon Zuñiga Jr., D.ORemy 12/09/2024 11:04 AM Dictation Location: [place] [address] Electronically authenticated by: [id number] Y Date: 12/09/2024 11:04 Dictated By: Tavon Zuñiga M.D. Signed By: 12/09/24 1106 DD/ 1104 TD/TT: Church History Professor: [facility] Radiology, Radiologist, MD - 12/09/2024 [place] [id number] XRay Report Signed Patient: YANNICK MAYERS MR#: [id number] : 1955 Acct:[id number] Age/Sex: 69 / M ADM Date: 12/09/24 Loc: RAD Attending Dr: RENU HORVATH Ordering Physician: RENU HORVATH Date of Service: 12/09/24 Procedure(s): XR tibia fibula LT 2V Accession Number(s): [id number] cc: ERIN OWENS ; RENU HORVATH [address] [address] Patient Name: YANNICK MAYERS MRN: [facility]:[id number] date: 1955 Sex: M Assigned Patient Location: [facility] Current Patient Location: [facility] Accession/Order Number: [id number] Exam Date: 12/09/2024 11:02 Report Date: 12/09/2024 11:04 At the request of: RENU HORVATH Procedure: XR tibia fibula LT 2V LEFT TIBIA AND FIBULA - - 2 views CLINICAL HISTORY: Pain And Swelling Left Lower Leg COMPARISON: None FINDINGS: Partially visualized left TKA without radiographic complication. No acute bony process is seen. Ankle mortise appears intact with previously presumed posttraumatic changes involving the malleoli. Soft tissue swelling. Vascular calcifications. XR/XR tibia fibula LT 2V IMPRESSION: SOFT TISSUE SWELLING WITHOUT ACUTE BONY PROCESS. NO HARDWARE COMPLICATION. Impression dictated by: Tavon Zuñiga Jr. DTwyla 12/09/2024 11:04 AM Dictation Location: [facility] Electronically authenticated by: [id number] Y Date: 12/09/2024 11:04 Dictated By: Tavon Zuñiga M.D. Signed By: 12/09/24 1106 DD/ 1104 TD/TT: Church History Professor: [email or web address] Radiology Study observation (narrative) [facility] [employer] XR TIBIA FIBULA LT 2VOrdered By: Radiologist Radiology on 12-09-2024 [facility] Work Phone: ECG 12 Leadon 09-01-2024 ECG revealed normal sinus rhythm, voltage cardia for LVH, inferior myocardial infarction undetermined age, QTc interval 486 ms [facility] Work Phone: ECG 12 Leadon 08-17-2024 ECG revealed normal sinus rhythm, prolonged QT interval, abnormal ECG [facility] Work Phone: ALBUMIN, RANDOM URINE W/CREA TININEon 08-06-2024 ALBUMIN, URINE 1.6 mg/dL Normal See Note: [facility] Comment on above: Result Comment: Refe rence Range: Reference Range Not established Performed By: #### 6 517 #### [facility] [address], [address] [place] [phone] Test Preparer: Marcell Story MD ALBUMIN/CREATININE RATIO, RANDOM URINE 8 mg/g creat Normal <30 [facility] Comment on above: Result Comment: The ADA defines abnormalities in albumin excretion as follows: Albuminuria Category Result (mg/g creatinine) Normal to Mildly increased <30 Moderately increased 30-299 Severely increased > OR = 300 The ADA recommends that at least two of three specimens collected within a 3-6 month period be abnormal before considering a patient to be within a diagnostic category. Performed By: #### 6 517 #### [facility] [address], [address] [place], [place] [address] Test Preparer: Marcell Story MD Creatinine (U) [Mass/Vol] 208 mg/dL Normal 20-320 [facility] Comment on above: Performed By: #### 6 517 #### [facility] of [address], [address] [place], [place] [address] Test Preparer: Marcell Story MD Laboratory - Hematology and Cell countson 08-02-2024 HbA1c (Bld) [Mass fraction] 5.7 % [facility] [employer] No Panel Informationon 08-02 Interpretation and review of laboratory results Normal [facility] [employer] CBC (INCLUDES DIFF/PLT)on Basophils (Bld) [#/Vol] 0.052 10*3/uL Normal 0-200 [facility] Comment on above: Performed By: #### 1 0231, 5099, 2830 #### [facility] of [address], [address] [place], [place] [id number] Test Preparer: Marcell Story MD #### [id number] #### [facility]/[address] [place], [place] Test Preparer: Mary Lew M.D.,PhD Basophils/100 WBC (Bld) 1.1 % Normal [facility] Comment on above: Performed By: #### 1 0231, 8299, 7600 #### [facility] [address], [address] [place], [place] [phone] Test Preparer: Marcell Story MD #### [id number] #### [facility]/[place] [address] [facility] [place], [place] Test Preparer: Mary Lew M.D.,PhD Eosinophils (Bld) [#/Vol] 0.508 10*3/uL High 15-500 [facility] Comment on above: Performed By: #### 1 023, 43, 3160 #### [facility] of [address], [address] [place], [place] [address] Test Preparer: Marcell Story MD #### [address]225[address] #### [facility]/[place] [address] [facility] [place], [place] Test Preparer: Mary Lew M.D.,PhD Eosinophils/100 WBC (Bld) 10.8 % Normal [facility] Comment on above: Performed By: #### 1 230, 2892, 8620 #### [facility] of [place] [id number] Test Preparer: Marcell Story MD #### 23831 #### [facility]/[place] [address] [facility] [place], [place] Test Preparer: Mary Lew M.D.,PhD Erythrocyte distribution width (RBC) [Ratio] 12.3 % Normal 11.0-15.0 [facility] Comment on above: Performed By: #### 1 230, 07, 5470 #### [facility] of [address] Test Preparer: Marcell Story MD #### 86154 #### [facility]/[place] [address] [facility] [place], [place] Test Preparer: Mary Lew M.D.,PhD Hematocrit (Bld) [Volume fraction] 46.7 % Normal 38.5-50.0 [facility] Comment on above: Performed By: #### 1 230, 2498, 0380 #### [facility] of [address], [address] [place] [address] Test Preparer: Marcell Story MD #### 81737 #### [facility]/[address] [place] Test Preparer: Mary Lew M.D.,PhD Hemoglobin (Bld) [Mass/Vol] 16.1 g/dL Normal 13.2-17.1 [facility] Comment on above: Performed By: #### 1 0231, 6399, 7600 #### [facility] of [place] [address], [address] [place] [phone] Test Preparer: Marcell Story MD #### 51600 #### [facility]/[address] [place], [place] Test Preparer: Mary Lew M.D.,PhD Lymphocytes (Bld) [#/Vol] 1.067 10*3/uL Normal 850-3900 [facility] Comment on above: Performed By: #### 1 0231, 6399, 7600 #### [facility] of [place] [address], [address] [place] [phone] Test Preparer: Marcell Story MD #### 26364 #### [facility]/[address] [place] Test Preparer: Mary Lew M.D.,PhD Lymphocytes/100 WBC (Bld) 22.7 % Normal [facility] Comment on above: Performed By: #### 1 0231, 6399, 7600 #### [facility] of [place] [address] [address] , [address] [place] [phone] Test Preparer: Marcell Story MD #### 95725 #### [facility]/[address] [place] Test Preparer: Mary Lew M.D.,PhD MCH (RBC) [Entitic mass] 35.5 pg High 27.0-33.0 [facility] Comment on above: Performed By: #### 1 0231, 6399, 7600 #### [facility] of [place] [address] [address] , [address] [place], [place] [phone] Test Preparer: Marcell Story MD #### 42795 #### [facility]/[place] [address] [facility] [place], [place] Test Preparer: Mary Lew M.D.,PhD MCHC (RBC) [Mass/Vol] 34.5 g/dL Normal 32.0-36.[address] [facility] Comment on above: Result Comment: For adults, a slight decrease in the calculated MCHC value (in the range of 30 to 32 g/dL) is most likely not clinically significant; however, it should be interpreted with caution in correlation with other red cell parameters and the patient's clinical condition. Performed By: #### 1 230, 40, 4740 #### [facility] [address], [address] [place], [place] [phone] Test Preparer: aMrcell Story MD #### 95244 #### [facility]/[place] [address] [facility] [place], [place] Test Preparer: Mary Lew M.D.,PhD MCV (RBC) [Entitic vol] 102.9 fL High 80.0-100.0 [facility] Comment on above: Performed By: #### 1 230, 6398, 0 #### [facility] [place] [phone] Test Preparer: Marcell Story MD #### 98937 #### [facility] [place], [place] Test Preparer: Mary Lew M.D.,PhD Monocytes (Bld) [#/Vol] 0.498 10*3/uL Normal 200-950 [facility] Comment on above: Performed By: #### 1 230, 88, 6100 #### [facility] [address], [address] [place], [place] [address] Test Preparer: Marcell Story MD #### 00960 #### [facility]/[place] [place] Test Preparer: Mary Lew M.D.,PhD Monocytes/100 WBC (Bld) 10.6 % Normal [facility] Comment on above: Performed By: #### 1 0231, 6399, 7600 #### [facility] of [address], [address] [place], [place] [address] Test Preparer: Marcell Story MD #### 06495 #### [facility]/[address] [place], [place] Test Preparer: Mary Lew M.D.,PhD Neutrophils (Bld) [#/Vol] 2.576 10*3/uL Normal 1120-3874 [facility] Comment on above: Performed By: #### 1 0231, 6399, 7600 #### [facility] of [address], [address] [place], [place] [address] Test Preparer: Marcell Story MD #### 33387 #### [facility]/[address] [place], [place] Test Preparer: Mary Lew M.D.,PhD Neutrophils/100 WBC (Bld) 54.8 % Normal [facility] Comment on above: Performed By: #### 1 0231, 6399, 7600 #### [facility] of [address], [address] [place], [place] [address] Test Preparer: Marcell Story MD #### 32137 #### [facility]/[address] [place], [place] Test Preparer: Mary Lew M.D.,PhD Platelet mean volume (Bld) [Entitic vol] 11.3 fL Normal 7.5-12.5 [facility] Comment on above: Performed By: #### 1 0231, 6399, 7600 #### [facility] of [address], [address] [place], [place] [address] Test Preparer: Marcell Story MD #### 29719 #### [facility]/[address] [place], [place] Test Preparer: Mary Lew M.D.,PhD Platelets (d) [#/Vol] 119 10*3/uL Low 140-400 [facility] Comment on above: Performed By: #### 1 0231, 6399, 7600 #### [facility] of [facility] [address], [address] [place] [phone] Test Preparer: Marcell Story MD #### 96426 #### [facility]/[place] [address] [facility] [place] Test Preparer: Mary Lew M.D.,PhD RBC (d) [#/Vol] 4.54 10*6/uL Normal 4.20-5.80 [facility] Comment on above: Performed By: #### 1 230, 76, 0 #### [facility] of [facility] [address], [address] [place], [place] [address] Test Preparer: Marcell Story MD #### 05149 #### [facility] [place] Test Preparer: Mary Lew M.D.,PhD WBC (d) [#/Vol] 4.7 10*3/uL Normal 3.8-10.8 [facility] Comment on above: Performed By: #### 1 023, 6399, 7600 #### [facility] of [facility] [address], [address] [place], [place] [address] Test Preparer: Marcell Story MD #### 94736 #### [facility]/[place] [address] [facility] [place] Test Preparer: Mary Lew M.D.,PhD COMPREHENSIVE METABOLIC PANE [facility] 07-04-2024 Albumin [Mass/Vol] 3.7 g/dL Normal 3.6-5.1 [facility] Comment on above: Performed By: #### 1 0231, 6399, 7600 #### [facility] of [address], [address] [place], [place] [address] Test Preparer: Marcell Story MD #### 97438 #### [facility]/[address] [place] Test Preparer: Mary Lew M.D.,PhD Albumin/Globulin [Mass ratio] 1.2 {ratio} Normal 1.0-2.5 [facility] Comment on above: Performed By: #### 1 0231, 6399, 7600 #### [facility] of [place] [phone] Test Preparer: Marcell Story MD #### [id number] #### [facility]/[address] [place], [place] Test Preparer: Mary Lew M.D.,PhD ALP [Catalytic activity/Vol] 85 U/L Normal 35-144 [facility] Comment on above: Performed By: #### 1 0231, 6399, 7600 #### [facility] of [place] [address] Test Preparer: Marcell Story MD #### 20312 #### [facility]/[address] [place] Test Preparer: Mary Lew M.D.,PhD ALT [Catalytic activity/Vol] 46 U/L Normal 9-46 [facility] Comment on above: Performed By: #### 1 0231, 6399, 9090 #### [facility] of [address] [address] Test Preparer: Marcell Story MD #### 96526 #### [facility] [address] [facility] [address] [place] Test Preparer: Mary Lew M.D.,PhD AST [Catalytic activity/Vol] 71 U/L High 10-35 [facility] Comment on above: Performed By: #### 1 230, 4347, 1090 #### [facility] of [address], [address] [place], [place] [address] Test Preparer: Marcell Story MD #### 52403 #### [facility]/[address] [place], [place] Test Preparer: Mary Lew M.D.,PhD Bilirubin [Mass/Vol] 1.6 mg/dL High 0.2-1.2 Ques t Diagnostics Comment on above: Performed By: #### 1 230, 8914, 5310 #### [facility] of [address], [address] [place], [place] [address] Test Preparer: Marcell Story MD #### 04259 #### [facility]/[address] [place], [place] Test Preparer: Mary Lew M.D.,PhD BUN/CREATININE RATIO SEE NOTE: Normal 6-22 [facility]ues t [facility] Comment on above: Result Comment: Not Reported: BUN and Creatinine are within reference range. Performed By: #### 1 230, 9364, 1590 #### [facility] of [address], [address] [place], [place] [address] Test Preparer: Marcell Story MD #### [id number] #### [facility]/[address] [place], [place] Test Preparer: Mary Lew M.D.,PhD Calcium [Mass/Vol] 9.9 mg/dL Normal 8.6-10.3 [facility] Comment on above: Performed By: #### 1 230, 8343, 4620 #### [facility] of [address], [address] [place], [place] [id number] Test Preparer: Marcell Story MD #### [id number] #### [facility]/[address] [place] Test Preparer: Mary Lew M.D.,PhD Chloride [Moles/Vol] 99 mmol/L Normal 98-110 [facility] Comment on above: Performed By: #### 1 0231, 6399, 7600 #### [facility] of [address], [address] [place], [place] [id number] Test Preparer: Marcell Story MD #### [id number] #### [facility]/[address] [place], [place] Test Preparer: Mary Lew M.D.,PhD CO2 [Moles/Vol] 32 mmol/L Normal 20-32 [facility] Comment on above: Performed By: #### 1 0231, 63, 7600 #### [facility] [place] [id number] Test Preparer: Marcell Story MD #### [id number] #### [facility]/[address] [place], [place] Test Preparer: Mary Lew M.D.,PhD Creatinine [Mass/Vol] 0.80 mg/dL Normal 0.70-1.[address] [facility] [address] [facility] [address] [facility] Comment on above: Performed By: #### 1 0231, 63, 7600 #### [facility] of [place] [id number] Test Preparer: Marcell Story MD #### [id number] #### [facility]/[address] [place] Test Preparer: Mary Lew M.D.,PhD GFR/1.73 sq M.predicted among non-blacks MDRD (S/P/Bld) [Vol rate/Area] 96 mL/min/{1.73_m2} Normal > OR = 60 [facility] Comment on above: Performed By: #### 1 0231, 6399, 7600 #### [facility] of [address], [address] [place] [phone] Test Preparer: Marcell Story MD #### [id number] #### [facility] [address] [place] Test Preparer: Mary Lew M.D.,PhD Globulin (S) [Mass/Vol] 3.2 g/dL Normal 1.9-3.7 [facility] Comment on above: Performed By: #### 1 230, 63, 4250 #### [facility] of [address], [address] [place] [phone] Test Preparer: Marcell Story MD #### [id number] #### [facility] [address] [place] Test Preparer: Mary Lew M.D.,PhD Glucose [Mass/Vol] 243 mg/dL High 65-99 [facility] Comment on above: Result Comment: Fasting reference interval For someone without known diabetes, a glucose value >125 mg/dL indicates that they may have diabetes and this should be confirmed with a follow-up test. Performed By: #### 1 230, 56, 8150 #### [facility] of [address], [address] [place] [address] Test Preparer: Marcell Story MD #### [id number] #### [facility] [address] [place] Test Preparer: Mary Lew M.D.,PhD Potassium [Moles/Vol] 4.1 mmol/L Normal 3.5-5.[address] [facility] Comment on above: Performed By: #### 1 230, 73, 4850 #### [facility] of [address], [address] [place] [address] Test Preparer: aMrcell Story MD #### [id number] #### [facility] [address] [place], [place] Test Preparer: Mary Lew M.D.,PhD Protein [Mass/Vol] 6.9 g/dL Normal 6.1-8.1 [facility] Comment on above: Performed By: #### 1 0231, 6399, 7600 #### [facility] of [address], [address] [place], [place] [address] Test Preparer: Marcell Story MD #### [id number] #### [facility]/[place] [id number] [facility] [place], [place] Test Preparer: Mary Lew M.D.,PhD Sodium [Moles/Vol] 138 mmol/L Normal 135-146 [facility] Comment on above: Performed By: #### 1 0231, 6399, 7600 #### [facility] of [address], [address] [place], [place] [phone] Test Preparer: Marcell Story MD #### [id number] #### [facility] [address] [place] [address] [place], [place] Test Preparer: Mary Lew M.D.,PhD Urea nitrogen [Mass/Vol] 9 mg/dL Normal 7-25 [facility] Comment on above: Performed By: #### 1 023, 6399, 7600 #### [facility] of [place] [id number] Test Preparer: Marcell Story MD #### [id number] #### [facility] [address] [place] [address] [place] Test Preparer: Mary Lew M.D.,PhD LIPID PANEL, [facility] Cholesterol [Mass/Vol] 199 mg/dL Normal <200 [facility] Comment on above: Order Comment: [facility] O NLY: PATIENT REFUSED. WILL RETRY ON NEXT SCHEDULED DAY. Performed By: #### 1 0231, 6399, 7600 #### [facility] of [address], [address] [place] [address] Test Preparer: Marcell Story MD #### [id number] #### [facility] [address] [facility] [address] [place] Test Preparer: Mary Lew M.D.,PhD Cholesterol in HDL [Mass/Vol] 43 mg/dL Normal > OR = 40 [facility] Comment on above: Order Comment: [facility] O NLY: PATIENT REFUSED. WILL RETRY ON NEXT SCHEDULED DAY. Performed By: #### 1 0231, 8099, 7600 #### [facility] [address] , [address] [place] [address] Test Preparer: Marcell Story MD #### [id number] #### [facility] [address] [facility] [address] [place] Test Preparer: Mary Lew M.D.,PhD Cholesterol in LDL [Mass/Vol] 130 mg/dL High [facility] Comment on above: Order Comment: [facility] O NLY: PATIENT REFUSED. WILL RETRY ON NEXT SCHEDULED DAY. Result Comment: Refe rence range: <100 Desirable range <100 mg/dL for primary prevention; <70 mg/dL for patients with CHD or diabetic patients with > or = 2 CHD risk factors. LDL-C is now calculated using the Blayne-Juan David calculation, which is a validated novel method providing better accuracy than the Friedewald equation in the estimation of LDL-C. Blayne SS et al. TEENA. 2013;310(19): 6299-5727 (http://education.Flocasts.Bill Me Later/faq/IMK782) Performed By: #### 1 0231, 3199, 3020 #### [facility] [address] , [address] [place] [address] Test Preparer: Marcell Story MD #### [id number] #### [facility] [address] [place] Test Preparer: Mary Lew M.D.,PhD Cholesterol.total/Cho lesterol in HDL [Mass ratio] 4.6 {ratio} Normal <5.0 [facility] Comment on above: Order Comment: [facility] O NLY: PATIENT REFUSED. WILL RETRY ON NEXT SCHEDULED DAY. Performed By: #### 1 0231, 6329, 7600 #### [facility] of [address], [address] [place] [address] Test Preparer: Marcell Story MD #### [id number] #### [facility]/[address] [place] Test Preparer: Mary Lew M.D.,PhD NON HDL CHOLESTEROL 156 mg/dL (calc) High <130 [facility] Comment on above: Order Comment: [facility] O NLY: PATIENT REFUSED. WILL RETRY ON NEXT SCHEDULED DAY. Result Comment: For patients with diabetes plus 1 major ASCVD risk factor, treating to a non-HDL-C goal of <100 mg/dL (LDL-C of <70 mg/dL) is considered a therapeutic option. Performed By: #### 1 023, 07, 7600 #### [facility] of [address], [address] [place] [address] Test Preparer: Marcell Story MD #### [id number] #### [facility]/[address] [place] Test Preparer: Mary Lew M.D.,PhD Triglyceride [Mass/Vol] 145 mg/dL Normal <150 [facility] Comment on above: Order Comment: [facility] O NLY: PATIENT REFUSED. WILL RETRY ON NEXT SCHEDULED DAY. Performed By: #### 1 023, 5434, 7810 #### [facility] [address], [address] [place], [place] [address] Test Preparer: Marcell Story MD #### [id number] #### [facility] [address] [facility] [address] [place] Test Preparer: Mary Lew M.D.,PhD TESTOSTERONE, FREE (DIALYSIS ) AND TOTAL,MSon 07-04-2024 TESTOSTERONE, FREE 55.4 pg/mL Normal 35.0-155.0 [email or web address] Comment on above: Result Comment: This test was developed and its analytical performance characteristics have been determined by [facility] [place]. It has not been cleared or approved by the U.S. Food and Drug Administration. This assay has been validated pursuant to the CLIA regulations and is used for clinical purposes. Performed By: #### 1 0231, 14, 1820 #### [facility] [address], [address] [place] [address] Test Preparer: Marcell Story MD #### [id number] #### [email or web address] [address] [facility] [place], [place] Test Preparer: Mary Lew M.D.,PhD TESTOSTERONE, TOTAL, MS 668 ng/dL Normal 250-1100 [facility] Comment on above: Result Comment: Men with clinically significant hypogonadal symptoms and testosterone values repeatedly in the range of the 200-300 ng/dL or less, may benefit from testosterone treatment after adequate risk and benefits counseling. For additional information, please refer to http://education.Stazoo.com.Bill Me Later/faq/ GagfqOvsrbgiopmkeFSHDPZFBU844 (This link is being provided for informational/ educational purposes only.) This test was developed and its analytical performance characteristics have been determined by [facility] [place], [place]. It has not been cleared or approved by the U.S. Food and Drug Administration. This assay has been validated pursuant to the CLIA regulations and is used for clinical purposes. Performed By: #### 1 230, 38, 4460 #### [email or web address] [address], [address] [place] [address] Test Preparer: Marcell Story MD #### [id number] #### [email or web address] [address] [place] Test Preparer: Mary Lew M.D.,PhD TSH W/REFLEX TO FT4on 2023 TSH W/REFLEX TO FT4 2.49 mIU/L Normal 0.40-4.50 [facility] Comment on above: Performed By: #### 1 0231, 4199, 3800 #### [facility] [address], [address] [place] [address] Test Preparer: Marcell Story MD #### [id number] #### [facility] [address] [place] [address] Test Preparer: Mary Lew M.D.,PhD ECG 12 Leadon 01-12-2024 Sinus rhythm with frequent PVCs QTc 486 ms [facility] Work Phone: Complete Blood Count Auto Di ffon 04-29-2023 Basophils (Bld) [#/Vol] 0.1 10*3/uL Normal 0.0-0.2 [facility] Comment on above: Result Comment: PERF ORMED BY: [place] [address] PATHOLOGIST ANGLE FURNACEMAN MORENA WELCH M.D. Performed By: #### P TT, CMP, HS TROP, CBC, MG, TSH3, CK, PT #### [address] Basophils/100 WBC (Bld) 0.9 % Normal . [facility] Comment on above: Performed By: #### P TT, CMP, HS TROP, CBC, MG, TSH3, CK, PT #### [place] [address] [place] Eosinophils (Bld) [#/Vol] 0.5 10*3/uL High 0.0-0.45 [facility] Comment on above: Performed By: #### P TT, CMP, HS TROP, CBC, MG, TSH3, CK, PT #### [place] [address] [place] Eosinophils/100 WBC (Bld) 8.3 % Normal . [facility] Comment on above: Performed By: #### P TT, CMP, HS TROP, CBC, MG, TSH3, CK, PT #### [address] Erythrocyte distribution width (RBC) [Ratio] 13.7 % Normal 12.0-14.8 [facility] Comment on above: Performed By: #### P TT, CMP, HS TROP, CBC, MG, TSH3, CK, PT #### [address] Hematocrit (Bld) [Volume fraction] 47.4 % Normal 38.8-50.0 [facility] Comment on above: Performed By: #### P TT, CMP, HS TROP, CBC, MG, TSH3, CK, PT #### [address] Hemoglobin (Bld) [Mass/Vol] 16.4 g/dL Normal 13.0-17.0 [facility] Comment on above: Performed By: #### P TT, CMP, HS TROP, CBC, MG, TSH3, CK, PT #### [address] Lymphocytes (Bld) [#/Vol] 1.4 10*3/uL Normal 1.00-4.8 [facility] Comment on above: Performed By: #### P TT, CMP, HS TROP, CBC, MG, TSH3, CK, PT #### [address] Lymphocytes/100 WBC (Bld) 21.4 % Normal . [facility] Comment on above: Performed By: #### P TT, CMP, HS TROP, CBC, MG, TSH3, CK, PT #### [address] MCH (RBC) [Entitic mass] 34.7 pg Normal 27.5-35.2 [facility] Comment on above: Performed By: #### P TT, CMP, HS TROP, CBC, MG, TSH3, CK, PT #### [address] MCV (RBC) [Entitic vol] 100.6 fL Normal 83.5-101 [facility] Comment on above: Performed By: #### P TT, CMP, HS TROP, CBC, MG, TSH3, CK, PT #### [address] Mean Corpuscular HGB Conc 34.5 g/dL Normal 32.5-35.6 [facility] Comment on above: Performed By: #### P TT, CMP, HS TROP, CBC, MG, TSH3, CK, PT #### [address] Monocytes (Bld) [#/Vol] 0.9 10*3/uL High 0.0-0.8 [facility] Comment on above: Performed By: #### P TT, CMP, HS TROP, CBC, MG, TSH3, CK, PT #### [address] Monocytes/100 WBC (Bld) 20.23 % High 0.00-20.00 [facility] Comment on above: Result Comment: For adults in ED, MDW > 20.0 may be associated with a higher risk of sepsis during the first 12 hrs of hospital admission Performed By: #### P TT, CMP, HS TROP, CBC, MG, TSH3, CK, PT #### [address] Monocytes/100 WBC (Bld) 13.6 % Normal . [facility] Comment on above: Performed By: #### P TT, CMP, HS TROP, CBC, MG, TSH3, CK, PT #### [address] Neutrophils (Bld) [#/Vol] 3.5 10*3/uL Normal 1.8-7.7 [facility] Comment on above: Performed By: #### P TT, CMP, HS TROP, CBC, MG, TSH3, CK, PT #### [address] Neutrophils/100 WBC (Bld) 55.8 % Normal . [facility] Comment on above: Performed By: #### P TT, CMP, HS TROP, CBC, MG, TSH3, CK, PT #### [address] NRBC% 0.1 /100{WBC} Normal 0-0.5 [facility] Comment on above: Performed By: #### P TT, CMP, HS TROP, CBC, MG, TSH3, CK, PT #### [address] Platelet mean volume (Bld) [Entitic vol] 8.2 fL Normal 6.6-10.1 [facility] Comment on above: Performed By: #### P TT, CMP, HS TROP, CBC, MG, TSH3, CK, PT #### [address] Platelets (Bld) [#/Vol] 118 10*3/uL Low 150-450 [facility] Comment on above: Performed By: #### P TT, CMP, HS TROP, CBC, MG, TSH3, CK, PT #### [address] RBC (Bld) [#/Vol] 4.71 10*6/uL Normal 3.90-5.60 [facility] Comment on above: Performed By: #### P TT, CMP, HS TROP, CBC, MG, TSH3, CK, PT #### [address] WBC (Bld) [#/Vol] 6.3 10*3/uL Normal 4.1-10.5 [facility] Comment on above: Performed By: #### P TT, CMP, HS TROP, CBC, MG, TSH3, CK, PT #### [address] Comprehensive Metabolic Pane mehul 04-29-2023 Albumin [Mass/Vol] 4.1 g/dL Normal 3.5-5.7 [facility] Comment on above: Performed By: #### P TT, CMP, HS TROP, CBC, MG, TSH3, CK, PT #### [address] [place] [address] [place] Albumin/Globulin [Mass ratio] 1.2 {ratio} Normal [facility] Comment on above: Performed By: #### P TT, CMP, HS TROP, CBC, MG, TSH3, CK, PT #### [address] ALP [Catalytic activity/Vol] 88 U/L Normal 34-104 [facility] Comment on above: Performed By: #### P TT, CMP, HS TROP, CBC, MG, TSH3, CK, PT #### [facility] [address] ALT [Catalytic activity/Vol] 57 U/L High 7-52 [facility] Comment on above: Performed By: #### P TT, CMP, HS TROP, CBC, MG, TSH3, CK, PT #### [address] Anion gap [Moles/Vol] 9.9 mmol/L Normal 6.0-15.0 [facility] Comment on above: Performed By: #### P TT, CMP, HS TROP, CBC, MG, TSH3, CK, PT #### [address] AST [Catalytic activity/Vol] 76 U/L High 13-39 [facility] Comment on above: Performed By: #### P TT, CMP, HS TROP, CBC, MG, TSH3, CK, PT #### [facility] [address] [place] [address] Bilirubin [Mass/Vol] 1.2 mg/dL High 0.3-1.0 [facility] Comment on above: Performed By: #### P TT, CMP, HS TROP, CBC, MG, TSH3, CK, PT #### [address] Calcium [Mass/Vol] 10.1 mg/dL Normal 8.6-10.3 [facility] Comment on above: Performed By: #### P TT, CMP, HS TROP, CBC, MG, TSH3, CK, PT #### [facility] [address] Chloride [Moles/Vol] 103 mmol/L Normal 98-107 [facility] Comment on above: Performed By: #### P TT, CMP, HS TROP, CBC, MG, TSH3, CK, PT #### [facility] [address] CO2 [Moles/Vol] 29.3 mmol/L Normal 21.0-31.0 [facility] Comment on above: Performed By: #### P TT, CMP, HS TROP, CBC, MG, TSH3, CK, PT #### [facility] [address] Creatinine [Mass/Vol] 0.78 mg/dL Normal 0.70-1.30 [facility] Comment on above: Performed By: #### P TT, CMP, HS TROP, CBC, MG, TSH3, CK, PT #### [facility] [address] Creatinine Clr Calc Pharmacy 108.54 [facility] Comment on above: Performed By: #### P TT, CMP, HS TROP, CBC, MG, TSH3, CK, PT #### [facility] [address] GFR/1.73 sq M.predicted MDRD (S/P/Bld) [Vol rate/Area] mL/min/{1.73_m2} [facility] Comment on above: Performed By: #### P TT, CMP, HS TROP, CBC, MG, TSH3, CK, PT #### [facility] [address] Globulin (S) [Mass/Vol] 3.4 g/dL [facility] Comment on above: Performed By: #### P TT, CMP, HS TROP, CBC, MG, TSH3, CK, PT #### [facility] [address] Glucose [Mass/Vol] 85 mg/dL Normal 70-100 [facility] Comment on above: Result Comment: [facility] Glucose Reference Range is dependent on time and content of last meal. Glucose of more than 200 mg/dL in a nonstressed, ambulatory subject supports the diagnosis of Diabetes Mellitus. ADA recommended reference range Performed By: #### P TT, CMP, HS TROP, CBC, MG, TSH3, CK, PT #### [facility] [address] Potassium [Moles/Vol] 4.2 mmol/L Normal 3.5-5.1 [facility] Comment on above: Performed By: #### P TT, CMP, HS TROP, CBC, MG, TSH3, CK, PT #### [address] Protein [Mass/Vol] 7.5 g/dL Normal 6.4-8.9 [facility] Comment on above: Performed By: #### P TT, CMP, HS TROP, CBC, MG, TSH3, CK, PT #### [address] Sodium [Moles/Vol] 138 mmol/L Normal 136-145 [facility] Comment on above: Performed By: #### P TT, CMP, HS TROP, CBC, MG, TSH3, CK, PT #### [address] Urea nitrogen [Mass/Vol] 9 mg/dL Normal 7-25 [facility] Comment on above: Performed By: #### P TT, CMP, HS TROP, CBC, MG, TSH3, CK, PT #### [address] Creatine Kinaseon 04-29-2023 CK [Catalytic activity/Vol] 66 U/L Normal 30-223 [facility] Comment on above: Performed By: #### P TT, CMP, HS TROP, CBC, MG, TSH3, CK, PT #### [address] ECG 12 lead ECGon 04-29-[address] [facility] [address] [place] [address] [place] [address] Electrocardiograph Report Signed Patient: Kristopher Mayers MR#: [id number] 9 : 1955 Acct:[id number] Age/Sex: 67 / M ADM Date: 04/29/23 Loc: ER Room: Type: [facility] ER Attending Dr: Ordering Provider: Todd Christina DO Date of Service: 04/29/23 ECG/ECG 12 lead ECG: Arrhythmia/Palpitati ons Copies to: Test Reason : Blood Pressure : / mmHG Vent. Rate : 070 BPM Atrial Rate : 070 BPM P-R Int : 192 ms QRS Dur : 106 ms QT Int : 434 ms P-R-T Axes : 061 052 058 degrees QTc Int : 468 ms Normal sinus rhythm Confirmed by Todd CHRISTINA DO ([id number]) on 04/29/2023 3:45:04 PM Referred By: Electronically Signed By:Todd CHRISTINA DO Transcribed By: MUS Signed By Todd Christina DO 0 04/29/23 1545 Normal [facility] Magnesiumon 04-29-2023 Magnesium [Mass/Vol] 2.0 mg/dL Normal 1.9-2.7 [facility] Comment on above: Performed By: #### P TT, CMP, HS TROP, CBC, MG, TSH3, CK, PT #### [place] [id number] [facility] Partial Thromboplastin Timeo n 04-29-2023 aPTT Coag (Bld) [Time] 32.5 s Normal 25.1-36.5 [facility] Comment on above: Result Comment: A he matocrit value greater than 55% may lead to inaccurate results in coagulation testing. Patients having hematocrit values >55% require a special collection tube for coagulation studies. Please contact the laboratory at [phone] for redraw instructions. PERFORMED BY: [place] [id number] PATHOLOGIST ANGLE FURNACEMAN MORENA WELCH M.D. Performed By: #### P TT, CMP, HS TROP, CBC, MG, TSH3, CK, PT #### [facility] [address] [place], [place] [id number] [place] Prothrombin Time INRon 04-29 INR Coag (PPP) [Relative time] 1.3 {INR} Normal [facility] Comment on above: Result Comment: INR Therapeutic Range A) Pre- and Peroperative OAT started two weeks before surgery. NOT HIP SURGERY: 1.5 - 2.5 HIP SURGERY: 2 - 3 B) Primary and secondary prevention of venous THROMBOSIS: 2 - 3 C) Active venous thrombosis, pulmonary embolism and prevention of recurrent venous thrombosis: 2 - 3 D) Prevention of arterial thromboembolism including patients with mechanical heart valves: 3 - 4.5 Performed By: #### P TT, CMP, HS TROP, CBC, MG, TSH3, CK, PT #### [place] [id number] [facility] PT Coag (PPP) [Time] 15.1 s High 9.0-12.9 [facility] Comment on above: Result Comment: A he matocrit value greater than 55% may lead to inaccurate results in coagulation testing. Patients having hematocrit values >55% require a special collection tube for coagulation studies. Please contact the laboratory at [phone] for redraw instructions. Performed By: #### P TT, CMP, HS TROP, CBC, MG, TSH3, CK, PT #### [place] [id number] [facility] Thyroid Stimulating Hormoneo n 04-29-2023 TSH Qn 4.04 m[IU]/L Normal 0.45-5.33 [facility] Comment on above: Result Comment: PERF ORMED BY: [place] [id number] PATHOLOGIST ANGLE FURNACEMAN MORENA WELCH M.D. Performed By: #### P TT, CMP, HS TROP, CBC, MG, TSH3, CK, PT #### [place] [id number] [facility] Troponin I High Sensitivityo n 04-29-2023 Troponin I High Sensitivity 6.3 pg/mL Normal 0.0-20.0 [facility] Comment on above: Result Comment: PERF ORMED BY: [place] [id number] PATHOLOGIST ANGLE FURNACEMAN MORENA WELCH M.D. Performed By: #### P TT, CMP, HS TROP, CBC, MG, TSH3, CK, PT #### [facility] [address] [place] [id number] [facility] XR chest 1V portableon 04-[address] [facility] [address] [place] [address] [place] [address] XRay Report Signed Patient: Kristopher Mayers MR#: [id number] 9 : 1955 Acct:[id number] Age/Sex: 67 / M ADM Date: 04/29/23 Loc: ER Room: Type: PRE ER Attending Dr: Copies to: RUBENS RODRIGUEZ Ordering Provider: RUBENS RODRIGUEZ Date of Service: 04/29/23 XR/XR chest 1V portable: Arrhythmia/Palpitati ons Plain film chest single view HISTORY: Palpitations. Arrhythmia. COMPARISON: None FINDINGS: SUPPORT DEVICES: None POSTSURGICAL CHANGES: Loop recorder HEART: Within normal limits PULMONARY BOB: Within normal limits MEDIASTINUM: Unremarkable LUNGS AND PLEURA: No acute lung process, pleural effusion or pneumothorax identified. BONY STRUCTURES: Intact ADDITIONAL FINDINGS None XR/XR chest 1V portable IMPRESSION: No acute process. Impression dictated by: Forest Conti M.D.04/29/2023 12:12 PM Dictation Location: [place] [address] Transcribed By: [facility] 04/29/23 121 Dictated By: Forest Conti DO 04/29/23 121 Signed By: 04/29/23 1212 [facility] ED Note-Physicianon 02-06-20 ED Note-Physician [id number] #1.00CD:127 [facility] Tobacco Screening.on 022 Fall risk assessment a) No falls within the last year [facility] 250 DO Work Phone: Tobacco use status [facility] b) No [facility] 250 DO Work Phone: Consent for Procedure/Surger yon 05-08-2022 Consent for Procedure/Surgery [id number]#1.00CD:127 Normal [facility] Patient Educationon 05-07-20 Patient Education Nutrition Calorie Counting for Weight Loss Calories are units of energy. Your body needs a certain amount of calories from food to keep you going throughout the day. When you eat more calories than your body needs, your body stores the extra calories as fat. When you eat fewer calories than your body needs, your body brito fat to get the energy it needs. Calorie counting means keeping track of how many calories you eat and drink each day. Calorie counting can be helpful if you need to lose weight. If you make sure to eat fewer calories than your body needs, you should lose weight. Ask your health care provider what a healthy weight is for you. For calorie counting to work, you will need to eat the right number of calories in a day in order to lose a healthy amount of weight per week. A dietitian can help you determine how many calories you need in a day and will give you suggestions on how to reach your calorie goal. ? A healthy amount of weight to lose per week is usually 1?2 lb (0.5?0.9 kg). This usually means that your daily calorie intake should be reduced by 500?750 calories. ? Eating 1,200 ? 1,500 calories per day can help most women lose weight. ? Eating 1,500 ? 1,800 calories per day can help most men lose weight. What is my plan? My goal is to have calories per day. If I have this many calories per day, I should lose around pounds per week. What do I need to know about calorie counting? In order to meet your daily calorie goal, you will need to: ? Find out how many calories are in each food you would like to eat. Try to do this before you eat. ? Decide how much of the food you plan to eat. ? Write down what you ate and how many calories it had. Doing this is called keeping a food log. To successfully lose weight, it is important to balance calorie counting with a healthy lifestyle that includes regular activity. Aim for 150 minutes of moderate exercise (such as walking) or 75 minutes of vigorous exercise (such as running) each week. Where do I find calorie information? The number of calories in a food can be found on a Nutrition Facts label. If a food does not have a Nutrition Facts label, try to look up the calories online or ask your dietitian for help. Remember that calories are listed per serving. If you choose to have more than one serving of a food, you will have to multiply the calories per serving by the amount of servings you plan to eat. For example, the label on a package of bread might say that a serving size is 1 slice and that there are 90 calories in a serving. If you eat 1 slice, you will have eaten 90 calories. If you eat 2 slices, you will have eaten 180 calories. How do I keep a food log? Immediately after each meal, record the following information in your food log: ? What you ate. Don't forget to include toppings, sauces, and other extras on the food. ? How much you ate. This can be measured in cups, ounces, or number of items. ? How many calories each food and drink had. ? The total number of calories in the meal. Keep your food log near you, such as in a small notebook in your pocket, or use a mobile celi or website. Some programs will calculate calories for you and show you how many calories you have left for the day to meet your goal. What are some calorie counting tips? ? Use your calories on foods and drinks that will fill you up and not leave you hungry: ? Some examples of foods that fill you up are nuts and nut butters, vegetables, lean proteins, and high-fiber foods like whole grains. High-fiber foods are foods with more than 5 g fiber per serving. ? Drinks such as sodas, specialty coffee drinks, alcohol, and juices have a lot of calories, yet do not fill you up. ? Eat nutritious foods and avoid empty calories. Empty calories are calories you get from foods or beverages that do not have many vitamins or protein, such as candy, sweets, and soda. It is better to have a nutritious high-calorie food (such as an avocado) than a food with few nutrients (such as a bag of chips). ? Know how many calories are in the foods you eat most often. This will help you calculate calorie counts faster. ? Pay attention to calories in drinks. Low-calorie drinks include water and unsweetened drinks. ? Pay attention to nutrition labels for low fat or fat free foods. These foods sometimes have the same amount of calories or more calories than the full fat versions. They also often have added sugar, starch, or salt, to make up for flavor that was removed with the fat. ? Find a way of tracking calories that works for you. Get creative. Try different apps or programs if writing down calories does not work for you. What are some portion control tips? ? Know how many calories are in a serving. This will help you know how many servings of a certain food you can have. ? Use a measuring cup to measure serving sizes. You could (more content not included)... Normal [facility] Urology Office/Clinic Noteon 05-07-2022 Urology Office/Clinic Note Chief Complaint Pt is here for Cysto/R stent removal HPI Staff Pt is here for Cysto/R stent removal. Abx taken. Physical Exam Vitals & Measurements HR: 75(Peripheral) RR: 16 BP: 138/80 HT: 65 in HT: 165 cm WT: 85.8 kg WT: 188.76 lb BMI: 31.52 Procedure Operative Information Anesthesia Type: Local Procedure: Local Cystoscopy with Stent Removal Complications: None Surgical risks, benefits, details of the procedure have been explained to the patient. Full informed consent has been obtained. Intraoperative Information Prepped: Patient is placed in supine position. The patient was prepped with the Betadine solution. Anesthesia: 2% Xylocaine Jelly per urethra. Procedure: Cystoscopy and right stent removal. The flexible Cystoscope was passed in retrograde fashion into the bladder without difficulty. The bladder was viewed in entirety and found to be without tumors or stones. Mild inflammation was seen surrounding the orifice with the stent seen protruding from it. The stent was then grasped and removed in its entirety. Specimens Removed: None Postoperative Information The patient tolerated the procedure well and was subsequently discharged home. Assessment/Plan 1. Kidney stones (N20.0: Calculus of kidney) S/p RT ESWL and holmium laser with stent placement done 04/25/22. Stent removed today without difficulty. 2. 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 June on 05/07/2022 15:31:15. . Documentation recorded by the scribalicia bardales, accurately reflects the services(s) I performed and decisions made by me. Authenticated by Dr. June on 05/07/2022 15:32:44. Problem List/Past Medical History Ongoing Afib Asthma Asymptomatic microscopic hematuria Epididymal cyst Heart disease High cholesterol Hypertension Kidney stones Personal history of kidney stones Peyronie disease Ureteral stone Historical No qualifying data Procedure/Surgical History Arthroplasty of knee. Medications Cardizem LA 180 mg/24 hours oral tablet, extended release, Oral, Daily dofetilide 250 mcg oral capsule, Oral, BID Eliquis 5 mg oral tablet, Oral, BID metoprolol 100 mg ER Tab, Oral, Daily Multi Vitamin+ potassium acetate Vitamin C 500 mg oral tablet, chewable, Chewed, Daily Vitamin D, Oral, qWeek Allergies No Known Allergies Social History Alcohol - Medium Risk, 05/29/2020 Tobacco - Denies Tobacco Use, 05/29/2020 Former smoker, quit more than 30 days ago Tobacco Use:., 05/07/2022 Family History Cancer: Father. High cholesterol: Mother. Hypertension: Mother. Liver disease: Brother. Normal [facility] Comment on above: Result Comment: Elec tronically Signed By: Mary JUNE MD\.br\Date and Time Signed: 05/07/22 15:32 EDT\.br\Electronically Co-Signed By: Tona Michelle\.br\Date and Time Co-Signed: 05/07/22 15:31 EDT CALCULI, URINARYon 2 2,8 Dihydroxyadenine Normal [facility] Comment on above: Performed By: #### B MP #### [facility] [address] [address] [address] Agapito Finney Ammonium Acid Urate Normal [facility] Comment on above: Performed By: #### B MP #### [facility] [address] [address] [address] Agapito Finney Bilirubin Ql (U) Normal [facility] Comment on above: Performed By: #### B MP #### [facility] [address] [address] [address] Agapito Finney Ca Oxalate Dihydrate 10 % [facility] Comment on above: Performed By: #### B MP #### [facility] [address] [address] [address] Agapito Finney CaHPO4 (Brushite) [facility] Comment on above: Performed By: #### B MP #### [facility] [address] [address] [address] Agapito Finney Calcium Bilirubinate [facility] Comment on above: Performed By: #### B MP #### [facility] [address] [address] [address] Agapito Finney Calcium Carbonate [facility] Comment on above: Performed By: #### B MP #### [facility] [address] [address] [address] Agapito Finney Calcium Oxalate Monohydrate 90 % [facility] Comment on above: Performed By: #### B MP #### [facility] [address] [address] [address] Agapito Finney Calcium Palmitate [facility] Comment on above: Performed By: #### B MP #### [facility] [address] [address] [address] Agapito Finney Calcium Phosphate [facility] Comment on above: Performed By: #### B MP #### [facility] [address] [address] [address] Agapito Finney Calcium Stearate Normal [facility] Comment on above: Performed By: #### B MP #### [facility] [address] [address] [address] Agapito Finney Carbonate Apatite Normal [facility] Comment on above: Performed By: #### B MP #### [facility] [address] [address] [address] Agapito Finney Cellular Material Normal [facility] Comment on above: Performed By: #### B MP #### [facility] [address] [address] [address] Agapito Finney Cholesterol [facility] Comment on above: Performed By: #### B MP #### [facility] [address] [address] [address] Agapito Finney Color (U) Brown [facility] Comment on above: Performed By: #### B MP #### [facility] [address] [place] [address] Dr. Agapito Finney Comment [facility] Comment on above: Performed By: #### B MP #### [facility] [address] [place] [address] Dr. Agapito Finney Comment Comment [facility] Comment on above: Result Comment: Calc ulus received in liquid. Wet calculi must be dried before analysis, which delays reporting of results. Leaving calculi in liquid (such as water, saline, blood, urine) may lead to changes in composition. Performed By: #### B MP #### [facility] [address] [place] [address] Dr. Agapito Finney Comment: Comment Normal [facility] Comment on above: Result Comment: Yeyo noel questions regarding Calculi Analysis contact [facility] at: [phone]. Performed By: #### B MP #### [facility] [address] [place] [address] Dr. Agapito Finney Composition Comment [facility] Comment on above: Result Comment: Perc entage (Represents the % composition) Performed By: #### B MP #### [facility] [address] [place] [address] Dr. Agapito Finney Cystine [facility] Comment on above: Performed By: #### B MP #### [facility] [address] [address] [address] Agapito Finney Disclaimer: Comment Normal [facility] Comment on above: Result Comment: This test was developed and its performance characteristics determined by [facility]. It has not been cleared or approved by the Food and Drug Administration. Performed By: #### B MP #### [facility] [address] [address] [address] Agapito Finney Dried Blood Normal [facility] Comment on above: Performed By: #### B MP #### [facility] [address] [address] [address] Agapito Finney Drug or Metabolite Normal [facility] Comment on above: Performed By: #### B MP #### [facility] [address] [place] [address] Dr. Agapito Finney Hydroxyapatite Normal [facility] Comment on above: Performed By: #### B MP #### [facility] [address] [place] [address] Dr. Agapito Finney Mg NH4 PO4 (Struvite) [facility] Comment on above: Performed By: #### B MP #### [facility] [address] [place] [address] Dr. Agapito Finney MgHPO4 (Newberyite) Normal [facility] Comment on above: Performed By: #### B MP #### [facility] [address] [place] [address] Dr. Agapito Finney Other component(s) Normal [facility] Comment on above: Performed By: #### B MP #### [facility] [address] [address] [address] Agapito Finney PDF . Normal [facility] Comment on above: Performed By: #### B MP #### [facility] [address] [place] [address] Dr. Agapito Finney Photo Comment [facility] Comment on above: Result Comment: Phot ograph will follow under a separate cover Performed By: #### B MP #### [facility] [address] [place] [address] Dr. Agapito Finney Please note: Comment Normal [facility] Comment on above: Result Comment: Calc baldo report will follow via computer, mail or regasification plant operator delivery. Performed By: #### B MP #### [facility] [address] [address] [address] Agapito Finney Size 3x2 Normal [facility] Comment on above: Result Comment: Mult iple pieces received. Dimensions of the largest piece reported. Performed By: #### B MP #### [facility] [address] [address] [address] Agapito Finney Sodium Acid Urate [facility] Comment on above: Performed By: #### B MP #### [facility] [address] [address] [address] Agapito Finney Source Comment [facility] Comment on above: Result Comment: Righ t Ureter Performed By: #### B MP #### [facility] [address] [address] [address] Agapito Finney Triamterene [facility] Comment on above: Performed By: #### B MP #### [facility] [address] [address] [address] Agapito Finney Uric Acid [facility] Comment on above: Performed By: #### B MP #### [facility] [address] [address] [address] Agapito Finney Uric Acid Dihydrate Normal [facility] Comment on above: Performed By: #### B MP #### [facility] [address] [address] [address] Agapito Finney Weight 49.0 mg [facility] Comment on above: Performed By: #### B MP #### [facility] [address] [address] [address] Agapito Finney Xanthine [facility] Comment on above: Performed By: #### B MP #### [facility] [address] [address] [address] Agapito Finney Operative Reporton 2 Operative Report [id number] #1.00CD:127 Normal [facility] Consultation Noteon 04-28-20 Consultation Note [id number] #1.00CD:127 Normal [facility] ECG 12-Leadon 04-28-2022 ECG 12-Lead [id number] #1.00CD:127 Normal [facility] Lab Reportson 04-28-2022 Lab Reports [id number] #1.00CD:127 Normal [facility] Lab Reports [id number] #1.00CD:127 Normal [facility] RAD - MISCon 04-28-2022 RAD - MISC [id number] #1.00CD:127 Normal [facility] XR KUB 1 VIEWon 04-25-2022 XR KUB 1 VIEW EXAMINATION: XR KUB 1 VIEW HISTORY: Urolithiasis ; right ureteral stone COMPARISON: XR KUB 04/17/2022 FINDINGS: KIDNEY/URETER - RIGHT: A few small stones projecting over right kidney. KIDNEY/URETER - LEFT: Several stones projecting over left kidney, largest is 5 mm. PELVIS: No visible ureteral stones. Stable pelvic calcifications favor phleboliths and atherosclerotic disease. BOWEL: No abnormal dilation or deviation. BONES: No acute abnormality. OTHER: Negative. No abnormal gaseous collections. IMPRESSION: 1. Bilateral nephrolithiasis, grossly stable. Electronically authenticated by: JOSE M ASHLEY Date: 2022-04-25 12:43 Normal [facility] CBC AUTO DIFFon 04-23-2022 BASO # 0.1 103/ul Normal 0.0-0.1 [facility] Comment on above: Performed By: #### C BC #### [facility] [address] [address] [address] Agapito Finney Basophils/100 WBC (Bld) 0.9 % Normal 0.2-2.0 [facility] Comment on above: Performed By: #### C BC #### [facility] [address] [place] [address] Dr. Agapito Finney EO # 0.6 103/ul Normal 0.0-0.7 [facility] Comment on above: Performed By: #### C BC #### [facility] [address] [place] [address] Dr. Agapito Finney Eosinophils/100 WBC (Bld) 11.7 % Critically high 0.9-7.0 [facility] Comment on above: Performed By: #### C BC #### [facility] [address] [place] [address] Dr. Agapito Finney Erythrocyte distribution width (RBC) [Ratio] 12.6 % Normal 11.0-15.0 [facility] Comment on above: Performed By: #### C BC #### [facility] [address] [place] [address] Dr. Agapito Finney Hematocrit (Bld) [Volume fraction] 42.6 % Normal 42.0-54.0 [facility] Comment on above: Performed By: #### C BC #### [facility] [address] [place] [address] Dr. Agapito Finney Hemoglobin (Bld) [Mass/Vol] 14.2 g/dL Normal 14.0-18.0 [facility] Comment on above: Performed By: #### C BC #### [facility] [address] [place] [address] Dr. Agapito Finney IG # 0.01 10e3/ul Normal 0.00-0.03 [facility] Comment on above: Performed By: #### C BC #### [facility] [address] [place] [address] Dr. Agapito Finney IG % 0.2 % Normal 0.0-0.5 [facility] Comment on above: Performed By: #### C BC #### [facility] [address] [place] [address] Dr. Agapito Finney LYMPH # 1.3 103/ul Normal 1.2-3.8 [facility] Comment on above: Performed By: #### C BC #### [facility] [address] [address] [address] Agapito Finney Lymphocytes/100 WBC (Bld) 24.7 % Normal 20.5-60.0 [facility] Comment on above: Performed By: #### C BC #### [facility] [address] [address] [address] Agapito Finney MANUAL DIFF REQ NO Normal [facility] Comment on above: Performed By: #### C BC #### [facility] [address] [place] [address] Dr. Agapito Finney MCH (RBC) [Entitic mass] 34.1 pg Critically high 25.9-34.0 [facility] Comment on above: Performed By: #### C BC #### [facility] [address] [place] [address] Dr. Agapito Finney MCHC (RBC) [Mass/Vol] 33.3 g/dL Normal 29.9-35.2 [facility] Comment on above: Performed By: #### C BC #### [facility] [address] [place] [address] Dr. Agapito Finney MCV (RBC) [Entitic vol] 102.2 fL Critically high 80.0-94.0 [facility] Comment on above: Performed By: #### C BC #### [facility] [address] [place] [address] Dr. Agapito Finney MONO # 0.7 103/ul Normal 0.3-0.8 [facility] Comment on above: Performed By: #### C BC #### [facility] [address] [place] [address] Dr. Agapito Finney Monocytes/100 WBC (Bld) 12.5 % Critically high 1.7-12.0 [facility] Comment on above: Performed By: #### C BC #### [facility] [address] [place] [address] Dr. Agapito Finney NEUT # 2.7 103/ul Normal 1.4-6.5 [facility] Comment on above: Performed By: #### C BC #### [facility] [address] [address] [address] Agapito Finney Neutrophils/100 WBC (Bld) 50.0 % Normal 43.0-75.0 [facility] Comment on above: Performed By: #### C BC #### [facility] [address] [place] [address] Dr. Agapito Finney Platelet mean volume (Bld) [Entitic vol] 9.7 fL Normal 9.5-13.5 [facility] Comment on above: Performed By: #### C BC #### [facility] [address] [address] [address] Agapito Finney PLT 115 103/ul Critically low 150-450 [facility] Comment on above: Performed By: #### C BC #### [facility] [address] [place] [address] Dr. Agapito Finney RBC 4.17 106/ul Critically low 4.70-6.10 [facility] Comment on above: Performed By: #### C BC #### [facility] [address] [place] [address] Dr. Agapito Finney WBC 5.4 103/ul Normal 4.0-11.0 [facility] Comment on above: Performed By: #### C BC #### [facility] [address] [place] [address] Dr. Agapito Finney [facility] SARS-CoV-2 (COVID-19) RNA MELINDA+probe Ql (Unsp spec) Not detected Normal NOT DETECTED [facility] Comment on above: Result Comment: This test is not yet approved or cleared by the [place] FDA. When there are no FDA-approved or cleared tests available, and other criteria are met, FDA can make tests available under an emergency access mechanism called an Emergency Use Authorization (EUA). The EUA for this test is supported by the [place] of Health and Human Service's (HHS's) declaration that circumstances exist to justify the emergency use of in vitro diagnostics for the detection and/or diagnosis of the virus that causes COVID-19. This EUA will remain in effect (meaning this test can be used) for the duration of the COVID-19 declaration justifying emergency of IVDs, unless it is terminated or revoked by FDA (after which the test may no longer be used). When diagnostic testing is negative, the possibility of a false negative should be considered in the context of a patient's recent exposures and the presence of clinical signs and symptoms consistent with SARS-CoV-2. Performed By: #### C VDTB #### [facility] [address] [place] [address] Dr. Agapito Finney PROF CHEM 8 (BAS METB)on Anion gap [Moles/Vol] 8.1 mmol/L Normal [facility] Comment on above: Performed By: #### B MP #### [facility] [address] [place] [address] Dr. Agapito Finney Calcium [Mass/Vol] 9.9 mg/dL Normal 8.5-10.1 [facility] Comment on above: Performed By: #### B MP #### [facility] [address] [place] [address] Dr. Agapito Finney Chloride [Moles/Vol] 104 mmol/L Normal 98-107 [facility] Comment on above: Performed By: #### B MP #### [facility] [address] [place] [address] Dr. Agapito Finney CO2 [Moles/Vol] 33.1 mmol/L Critically high 21.0-32.0 [facility] Comment on above: Performed By: #### B MP #### [facility] [address] [place] [address] Dr. Agapito Finney Creatinine [Mass/Vol] 0.94 mg/dL Normal 0.70-1.30 [facility] Comment on above: Performed By: #### B MP #### [facility] [address] [place] [address] Dr. Agapito Finney EGFR-AF GAMBIAN >60 Normal >=60 [facility] Comment on above: Performed By: #### B MP #### [facility] [address] [place] [address] Dr. Agapito Finney EGFR-NON AF GAMBIAN >60 Normal >=60 [facility] Comment on above: Performed By: #### B MP #### [facility] [facility] [address] [address] [address] Agapito Finney Glucose [Mass/Vol] 95 mg/dL Normal 74-106 [facility] Comment on above: Performed By: #### B MP #### [facility] [address] [address] [address] Agapito Finney Potassium [Moles/Vol] 5.2 mmol/L Critically high 3.5-5.1 [facility] Comment on above: Performed By: #### B MP #### [facility] [address] [address] [address] Agapito Finney Sodium [Moles/Vol] 140 mmol/L Normal 136-145 [facility] Comment on above: Performed By: #### B MP #### [facility] [address] [address] [address] Agapito Finney Urea nitrogen [Mass/Vol] 6.0 mg/dL Critically low 7.0-18.0 [facility] Comment on above: Performed By: #### B MP #### [facility] [address] [address] [address] Agapito Finney Urea nitrogen/Creatinine [Mass ratio] 6.4 mg/mg Normal [facility] Comment on above: Performed By: #### B MP #### [facility] [address] [address] [address] Agapito Finney PROTIMEon 04-23-2022 INR Coag (PPP) [Relative time] 1.05 {INR} Normal [facility] Comment on above: Performed By: #### P TT, PT #### [facility] [address] [address] [address] Agapito Finney INR GUIDELINES SEE BELOW Normal [facility] Comment on above: Result Comment: RICK RED INR: 2.0 - 3.0 CONDITIONS NOT LISTED BELOW 2.5 - 3.5 FOR PROSTHETIC HEART VALVE REPLACEMENT 2.5 - 3.5 RECURRENT THROMBOSIS Performed By: #### P TT, PT #### [facility] [address] [address] [address] Agapito Finney PT Coag (PPP) [Time] 11.3 s Normal 9.0-11.6 [facility] Comment on above: Performed By: #### P TT, PT #### [facility] [id number] Agapito Finney PTTon 04-23-2022 aPTT Coag (Bld) [Time] 29.6 s Normal 22.3-36.2 [facility] Comment on above: Performed By: #### P TT, PT #### [facility] [address] [address] [address] Agapito Fniney Physician Orderon 04-23-2022 Physician Order [id number] #1.00CD:127 Normal [facility] Ambulatory Visit Summaryon 0 04-22-2022 Ambulatory Visit Summary YANNICK MAYERS :1955 Visit Date:04/22/2022 Ambulatory Visit Instructions Your Diagnosis Ureteral stone Kidney stones Asymptomatic microscopic hematuria Personal history of kidney stones Tests Performed Urnls Dip Stick Auto w/o Microscopy POC 41854 Your Care Team Attending Physician - SHAYLEE SCOTT, Mary Gomez Primary Care Physician - PRICILLA SCOTT, JOEL Bardales This Is Your Medications List Contact prescribing physician if questions or concerns apixaban (Eliquis 5 mg oral tablet) ascorbic acid (Vitamin C 500 mg oral tablet, chewable) diltiazem (Cardizem LA 180 mg/24 hours oral tablet, extended release) dofetilide (dofetilide 250 mcg oral capsule) ergocalciferol (Vitamin D) metoprolol (metoprolol 100 mg ER Tab) multivitamin (Multi Vitamin+) potassium acetate Procedures Performed Arthroplasty of knee. Discharge Vitals Heart Rate (Peripheral) 80 Respiratory Rate 16 Blood Pressure 139/87 Height 180 cm Height 71 in Weight 104 kg Weight 228.8 BMI 32.1 What to do next You Need to Schedule the Following Appointments Follow Up with SHAYLEE SCOTT, Mary Gomez, AB When: Where: [facility] [address] [place] [phone] Medications What How Much When Instructions Unchanged apixaban (Eliquis 5 mg oral tablet) 2 times a day Contact prescribing physician if questions or concerns Unchanged ascorbic acid (Vitamin C 500 mg oral tablet, chewable) Every day Contact prescribing physician if questions or concerns Unchanged diltiazem (Cardizem LA 180 mg/ 24 hours oral tablet, extended release) Every day Contact prescribing physician if questions or concerns Unchanged dofetilide (dofetilide 250 mcg oral capsule) 2 times a day Contact prescribing physician if questions or concerns Unchanged ergocalciferol (Vitamin D) Every week Contact prescribing physician if questions or concerns Unchanged metoprolol (metoprolol 100 mg ER Tab) Every day Contact prescribing physician if questions or concerns Unchanged multivitamin (Multi Vitamin+) Contact prescribing physician if questions or concerns Unchanged potassium acetate Contact prescribing physician if questions or concerns Test Results Urnls Dip Stick Auto w/o Microscopy POC 52832 (04/22/2022) Bilirubin Urine Dipstick - Negative Blood Urine Dipstick - 3+ Large Glucose Urine Dipstick - Negative Ketones Urine Dipstick - Negative Leukocytes Urine Dipstick - Negative Nitrite Urine Dipstick - Negative Protein Urine Dipstick - Negative Specific [place] Urine Dipstick - 1.010 Urine Appearance Urine Dipstick - Clear Urine Color Urine Dipstick - Yellow Urobilinogen Urine Dipstick - Normal 0.2-1 EU/dl pH Urine Dipstick - 6.5 Allergies No Known Allergies Problems Ongoing - Any problem that you are currently receiving treatment for. Afib Asthma Asymptomatic microscopic hematuria Epididymal cyst Heart disease High cholesterol Hypertension Kidney stones Personal history of kidney stones Peyronie disease Ureteral stone Education Materials Kidney Stones Kidney stones are rock-like masses that form inside of the kidneys. Kidneys are organs that make pee (urine). A kidney stone may move into other parts of the urinary tract, including: ? The tubes that connect the kidneys to the bladder (ureters). ? The bladder. ? The tube that carries urine out of the body (urethra). Kidney stones can cause very bad pain and can block the flow of pee. The stone usually leaves your body (passes) through your pee. You may need to have a doctor take out the stone. What are the causes? Kidney stones may be caused by: ? A condition in which certain glands make too much parathyroid hormone (primary hyperparathyroidism) . ? A buildup of a type of crystals in the bladder made of a chemical called uric acid. The body makes uric acid when you eat certain foods. ? Narrowing (stricture) of one or both of the ureters. ? A kidney blockage that you were born with. ? Past surgery on the kidney or the ureters, such as gastric bypass surgery. What increases the risk? You are more likely to develop this condition if: ? You have had a kidney stone in the past. ? You have a family history of kidney stones. ? You do not drink enough water. ? You eat a diet that is high in protein, salt (sodium), or sugar. ? You are overweight or very overweight (obese). What are the signs or symptoms? Symptoms of a kidney stone may include: ? Pain in the side of the belly, right below the ribs (flank pain). Pain usually spreads (radiates) to the groin. ? Needing to pee often or right away (urgently). ? Pain when going pee (urinating). ? Blood in your pee (hematuria). ? Feeling like you may vomit (nauseous). ? Vomiting. ? Fever and chills. How is this treated? Treatment depends on the size, location, and makeup of (more content not included)... Normal [facility] Patient Educationon 04-22-20 Patient Education Urology Kidney Stones Kidney stones are rock-like masses that form inside of the kidneys. Kidneys are organs that make pee (urine). A kidney stone may move into other parts of the urinary tract, including: ? The tubes that connect the kidneys to the bladder (ureters). ? The bladder. ? The tube that carries urine out of the body (urethra). Kidney stones can cause very bad pain and can block the flow of pee. The stone usually leaves your body (passes) through your pee. You may need to have a doctor take out the stone. What are the causes? Kidney stones may be caused by: ? A condition in which certain glands make too much parathyroid hormone (primary hyperparathyroidism) . ? A buildup of a type of crystals in the bladder made of a chemical called uric acid. The body makes uric acid when you eat certain foods. ? Narrowing (stricture) of one or both of the ureters. ? A kidney blockage that you were born with. ? Past surgery on the kidney or the ureters, such as gastric bypass surgery. What increases the risk? You are more likely to develop this condition if: ? You have had a kidney stone in the past. ? You have a family history of kidney stones. ? You do not drink enough water. ? You eat a diet that is high in protein, salt (sodium), or sugar. ? You are overweight or very overweight (obese). What are the signs or symptoms? Symptoms of a kidney stone may include: ? Pain in the side of the belly, right below the ribs (flank pain). Pain usually spreads (radiates) to the groin. ? Needing to pee often or right away (urgently). ? Pain when going pee (urinating). ? Blood in your pee (hematuria). ? Feeling like you may vomit (nauseous). ? Vomiting. ? Fever and chills. How is this treated? Treatment depends on the size, location, and makeup of the kidney stones. The stones will often pass out of the body through peeing. You may need to: ? Drink more fluid to help pass the stone. In some cases, you may be given fluids through an IV tube put into one of your veins at the hospital. ? Take medicine for pain. ? Make changes in your diet to help keep kidney stones from coming back. Sometimes, medical procedures are needed to remove a kidney stone. This may involve: ? A procedure to break up kidney stones using a beam of light (laser) or shock waves. ? Surgery to remove the kidney stones. Follow these instructions at home: Medicines ? Take [id number] and prescription medicines only as told by your doctor. ? Ask your doctor if the medicine prescribed to you requires you to avoid driving or using heavy machinery. Eating and drinking ? Drink enough fluid to keep your pee pale yellow. You may be told to drink at least 8?10 glasses of water each day. This will help you pass the stone. ? If told by your doctor, change your diet. This may include: ? Limiting how much salt you eat. ? Eating more fruits and vegetables. ? Limiting how much meat, poultry, fish, and eggs you eat. ? Follow instructions from your doctor about eating or drinking restrictions. General instructions ? Collect pee samples as told by your doctor. You may need to collect a pee sample: ? 24 hours after a stone comes out. ? 8?12 weeks after a stone comes out, and every 6?12 months after that. ? Strain your pee every time you pee (urinate), for as long as told. Use the strainer that your doctor recommends. ? Do not throw out the stone. Keep it so that it can be tested by your doctor. ? Keep all follow-up visits as told by your doctor. This is important. You may need follow-up tests. How is this prevented? To prevent another kidney stone: ? Drink enough fluid to keep your pee pale yellow. This is the best way to prevent kidney stones. ? Eat healthy foods. ? Avoid certain foods as told by your doctor. You may be told to eat less protein. ? Stay at a healthy weight. Where to find more information ? National Kidney Foundation (NKF): www.kidney.org ? [employer] (UCF): www.urologyhealth.or g Contact a doctor if: ? You have pain that gets worse or does not get better with medicine. Get help right away if: ? You have a fever or chills. ? You get very bad pain. ? You get new pain in your belly (abdomen). ? You pass out (faint). ? You cannot pee. Summary ? Kidney stones are rock-like masses that form inside of the kidneys. ? Kidney stones can cause very bad pain and can block the flow of pee. ? The stones will often pass out of the body through peeing. ? Drink enough fluid to keep your pee pale yellow. This information is not intended to replace advice given to you by your health care provider. Make sure you discuss any questions you have with your health care provider. Document Released: 01/06/2009 Document Revised: 12/07/2019 Document Reviewed: 12/07/2019 [email or web address] Patient Education ? 2019 [email or web address] [facility] Urology Office/Clinic Noteon 04-22-2022 Urology Office/Clinic Note Chief Complaint [place] [facility] [place] pain and flank pain on 04/13/22 HPI Staff Pt is here to f/[place] [facility] [place] for right flank pain and lower back pain on 04/13/22. CT done at that time showed an 8mm stone in the mid right ureter near the pelvic inlet. Current KUB done at [facility] 04/17/22 showed no visible renal or ureteral calcifications and numerous stones within the left kidney largest is 6mm. Pt states that he is nauseous all the time for the past 5-6 days. States he has also been having headaches. Dysuria: no Incomplete bladder emptying: no Hematuria: pt was seeing a lot of blood in his urine this past Friday. Frequency: no Urgency: no Nocturia: 1x Stream: good stream no straining Leaking: yes sometimes when he is running water Post void dripping: no Wearing pads/ Depends: no Urge incontinence: no Stress incontinence: no Incontinence without Sensory Awareness: no Abdominal pain: no Flank pain: right sided is rating his pain at a 2-3 after taking Ibuprofen this morning Sexual complaints: no History of Present Illness I have reviewed and verified the staff HPI to be accurate for this encounter. Review of Systems PHQ Score Initial Depression Screen Score: 0 ROS - Provider Constitutional: denies weight loss, denies hot flashes. Eyes: denies eye problems. Gastrointestinal: denies nausea, denies vomiting. Cardiovascular: denies chest pain or angina. Integumentary: no dryness Musculoskeletal: denies musculoskeletal symptoms. ENMT: denies otolaryngeal symptoms. Respiratory: no shortness of breath. Heme/Lymph: denies easy bleeding tendency, denies easy bruising tendency. Psychiatric: no confusion, no anxiety. Genitourinary: denies dysuria, denies hematuria, denies discharge, denies urinary frequency, denies urinary hesitancy, denies nocturia, denies incontinence, denies genital sores, denies decreased libido, and denies erectile dysfunction. Physical Exam Vitals & Measurements HR: 80(Peripheral) RR: 16 BP: 139/87 HT: 71 in HT: 180 cm WT: 104 kg WT: 228.8 BMI: 32.1 General Appearance: alert, no distress, well nourished, well developed male. Head: normocephalic . Eyes: normal orbit and globe. ENMT: normal examination of external ears. Chest: Lungs CTA, respirations non labored. Cardiovascular: regular rate and rhythm. Abdomen: soft, non distended, mild tenderness R cva, no mass or organomegaly, no hernia. Genitourinary: normal scrotum, normal testes, normal urethra, normal epididymis, normal vas deferens/spermatic cord. Flank Pain: none. Bladder: nonpalpable. Penis: normal shaft, normal glans. Lymph Nodes: unremarkable palpation of the cervical area. Skin: warm, dry, no bruising. Psychiatric: cooperative, affect appropriate for age, normal judgement, euthymic mood. Assessment/Plan 1. Ureteral stone (N20.1: Calculus of ureter) CT done 04/13/22 showed an 8mm stone in the mid right ureter near the pelvic inlet. Probable stone seen on most recent KUB over the sacral ureter. we would need to proceed with Cystoscopy, Right ureteroscopy, laser, basket extraction, possible stent placement due to pt being on blood thinners. Right CVA tenderness on today's exam. Will schedule R ureteroscopy/laser/b asket/R stent. The procedure risks, benefits, details and treatment alternatives have been discussed with the patient. These include blood in the urine, infection, bleeding around the kidney, kidney bruising, inability to break up the stone, need for blood transfusion, blockage from stone fragments, and need for additional procedures, among others. Full informed consent has been obtained. Will order General anesthesia. 2. Kidney stones (N20.0: Calculus of kidney) Current KUB done at [facility] 04/17/22 showed no visible renal or ureteral calcifications and numerous stones within the left kidney largest is 6mm. CT done 04/13/2022 showed Bilateral stones in the renal collecting system. Educated pt on his most recent KUB. Educated pt that after we treat his R ureteral stone we will have to further evaluate his kidney stones for the best form of treatment(ESWL vs. Ureteroscopy). 3. Asymptomatic microscopic hematuria (R31.21: Asymptomatic microscopic hematuria) UA today shows Large Blood. 4. Personal history of kidney stones (Z87.442: Personal history of urinary calculi) Pt states that he has had 2 previous kidney stones but it has been roughly 30 years. Follow-up With When Contact Information SHAYLEE SCOTT, Mary Gomez, URL [facility] [address], [place] [address]- [phone] Additional Instructions: Patient Education Kidney Stones, [id number] Abigail Salguero, personally scribed for Dr. June on 04/22/2022 13:35:14. . Documentation recorded by the scribe, Abigail Bear, accurately reflects the services(s) I performed and decisions made by me. Problem List/Past Medical History Ongoing Afib Asthma Asympto (more content not included)... Normal [facility] Comment on above: Result Comment: Elec tronically Signed By: Mary JUNE MD\.br\Date and Time Signed: 04/22/22 13:40 EDT\.br\Electronically Co-Signed By: Abigail Bear MA\.br\Date and Time Co-Signed: 04/22/22 13:35 EDT RAD - MISCon 04-17-2022 RAD - MISC [id number] #1.00CD:127 Normal [facility] XR KUB 1 VIEWon 04-17-2022 XR KUB 1 VIEW EXAMINATION: XR KUB 1 VIEW HISTORY: Kidney stone COMPARISON: CT abdomen pelvis 07/07/2020 FINDINGS: KIDNEY/URETER - RIGHT: No visible renal or ureteral calcifications. KIDNEY/URETER - LEFT: Numerous stones within left kidney, largest is 6 mm. PELVIS: No visible ureteral stones. Pelvic calcifications favor phleboliths. BOWEL: No abnormal dilation or deviation. BONES: No acute abnormality. OTHER: Negative. No abnormal gaseous collections. IMPRESSION: 1. Marked left nephrolithiasis. 2. No visible right kidney stones. Electronically authenticated by: JOSE M ASHLEY Date: 2022-04-17 09:28 Normal [facility] Automated erythrocytes count in urine sediment (number/area)Ordered By: Ebony Dietrich on 04-13-2022 RBC Auto (Urine sed) [#/Area] Innumerable [HPF] 0-4 [facility] Automated leukocytes count i n urine sediment (number/area)Ordered By: Ebony Dietirch on 04-13-2022 WBC Auto (Urine sed) [#/Area] 1-2 [HPF] 0-4 [facility] Bilirubin Test strip Ql (U)O rdered By: Ebony Dietrich on 04-13-2022 Bilirubin Ql (U) Negative Negative [facility] Color Auto (U)Ordered By: Precious Dietrich on 04-13-2022 Color (U) Yellow Yellow [facility] Ketones Auto test strip (U) [Mass/Vol]Ordered By: Ebony Dietrich on 04-13-2022 Ketones (U) [Mass/Vol] Negative Negative [facility] Laboratory - UrinalysisOrder ed By: Ebony Dietrich on 04-13-2022 Hyaline casts LM Ql (Urine sed) None seen [LPF] 0-8 [facility] Nitrite Test strip Ql (U)Ord ered By: Ebony Dietrich on 04-13-2022 Nitrite Ql (U) Negative Negative [facility] Protein Auto test strip (U) [Mass/Vol]Ordered By: Ebony Dietrich on 04-13-2022 Protein (U) [Mass/Vol] Trace mg/dL Negative [facility] Specific gravity Auto test s trip (U) [Rel density]Ordered By: Ebony Dietrich on 04-13-2022 Specific gravity (U) [Rel density] 1.006 1.001-1.030 [facility] Spermatozoa detection in uri ne sediment by light microscopyOrdered By: Ebony Dietrich on 04-13-2022 Spermat[place]oa LM Ql (Urine sed) 1-2 [HPF] 0-2 [facility] Squamous epithelial cells de tection in urine sediment by light microscopyOrdered By: Ebony Dietrich on 04-13-2022 Epithelial cells.squamous LM Ql (Urine sed) None seen [HPF] 0-2 [facility] Urine bacteria detection by automated methodOrdered By: Ebony Dietrich on 04-13-2022 Bacteria Auto Ql (U) None seen None Seen [facility] Urine clarity by refractomet ry automatedOrdered By: Ebony Dietrich on 04-13-2022 Clarity Refractometry automated (U) Clear Clear [facility] Urine glucose measurement by automated test strip (mass/volume)Ordered By: Ebony Dietrich on 04-13-2022 Glucose Auto test strip (U) [Mass/Vol] Normal mg/dL Normal [facility] Urine hemoglobin detection b y automated test stripOrdered By: Ebony Dietrich on 04-13-2022 Hemoglobin Auto test strip Ql (U) 3+ Negative [facility] Urine leukocyte esterase det ection by automated test stripOrdered By: Ebony Dietrich on 04-13-2022 Leukocyte esterase Auto test strip Ql (U) 1+ Negative [facility] Urobilinogen Auto test strip (U) [Mass/Vol]Ordered By: Ebony Dietrich on 04-13-2022 Urobilinogen (U) [Mass/Vol] Normal mg/dL Normal [facility] pH Auto test strip (U)Ordere d By: Ebony Dietrich on 04-13-2022 pH (U) 7.5 [pH] 5.0-9.0 [facility] PROF CHEM 8 (BAS METB)on Anion gap [Moles/Vol] 8.3 mmol/L Normal [facility] Comment on above: Performed By: #### B MP #### [facility] [address] [address] [address] Agapito Finney Calcium [Mass/Vol] 9.0 mg/dL Normal 8.5-10.1 [facility] Comment on above: Performed By: #### B MP #### [facility] [address] [address] [address] Agapito Finney Chloride [Moles/Vol] 101 mmol/L Normal 98-107 [facility] Comment on above: Performed By: #### B MP #### [facility] [address] [address] [address] Agapito Finney CO2 [Moles/Vol] 30.7 mmol/L Critically high 22.0-30.0 [facility] Comment on above: Performed By: #### B MP #### [facility] [address] [address] [address] Agapito Finney Creatinine [Mass/Vol] 0.95 mg/dL Normal 0.66-1.25 [facility] Comment on above: Performed By: #### B MP #### [facility] [address] [address] [address] Agapito Finney EGFR-AF GAMBIAN >60 Normal >=60 [facility] Comment on above: Performed By: #### B MP #### [facility] [address] [address] [address] Agapito Finney EGFR-NON AF GAMBIAN >60 Normal >=60 [facility] Comment on above: Performed By: #### B MP #### [facility] [address] [address] [address] Agapito Finney Glucose [Mass/Vol] 102 mg/dL Normal 74-106 [facility] Comment on above: Performed By: #### B MP #### [facility] [address] [address] [address] Agapito Finney Potassium [Moles/Vol] 4.0 mmol/L Normal 3.4-5.0 [facility] Comment on above: Performed By: #### B MP #### [facility] [address] [address] [address] Agapito Finney Sodium [Moles/Vol] 136 mmol/L Critically low 137-145 [facility] Comment on above: Performed By: #### B MP #### [facility] [address] [address] [address] Agapito Finney Urea nitrogen [Mass/Vol] 11.0 mg/dL Normal 7.0-18.0 [facility] Comment on above: Performed By: #### B MP #### [facility] [address] [address] [address] Agapito Finney Urea nitrogen/Creatinine [Mass ratio] 11.6 mg/mg Normal [facility] Comment on above: Performed By: #### B MP #### [facility] [address] [address] [address] Agapito Finney PHQ-2 [facility] 11-02-2021 Adult depression screening assessment No [facility] [address] DO Work Phone: Fall risk assessment a) No falls within the last year [facility] [address] DO Work Phone: Tobacco use status [facility] b) No [facility] [address] DO Work Phone: ECHOCARDIO M/2D COMPLETEon 0 10-16-2021 ECHOCARDIO M/2D COMPLETE Patient: YANNICK MAYERS Exam Date: 10/16/2021 : 1955 Gender:M Ordering : DR JOEL ONEAL . Admission #: [id number] Family : Order #: [id number] CLICK HERE TO VIEW EXAM ECHOCARDIOGRAM REPORT PROCEDURE: CARDIO PULMONARY ECHOCARDIO M/2D COMP INDICATIONS: Afib COMPARISON: None. DESCRIPTION: COMPLETE ECHOCARDIOGRAM Real-time transthoracic echocardiography with 2D, M-mode, spectral and color flow Doppler performed. QUALITY: Technical quality was good. LEFT VENTRICLE: Normal chamber size. Moderate concentric left ventricular hypertrophy. LV EF: Global left ventricular systolic function is normal. Calculated left ventricular ejection fraction is 56%. No significant wall motion abnormalities. DIASTOLIC: Normal diastolic function. ATRIAL SEPTUM: Inadequately seen. LEFT ATRIUM: Normal chamber size. RIGHT ATRIUM: Mild dilatation. RIGHT VENTRICLE: Normal chamber size. Normal right ventricular systolic function. TRICUSPID VALVE: Normal mobility and thickness. No stenosis with trivial regurgitation. No evidence of pulmonary hypertension. RVSP 20mmHg. MITRAL VALVE: Normal mobility and thickness. No mitral valve prolapse. No evidence of mitral valve stenosis. There is no mitral annular calcification. Trivial mitral regurgitation. AORTIC VALVE: Normal trileaflet appearance. No visible sclerosis. Normal leaflet mobility. No evidence of aortic valve stenosis. Trivial aortic regurgitation. AORTIC ROOT: Normal diameter and appearance. Mild dilatation of the ascending aorta measuring 3.6cm. PULMONIC VALVE: Normal thickness and mobility. No stenosis. No regurgitation. PERICARDIUM: No evidence of pericardial effusion. CONCLUSION: Global left ventricular systolic function is normal; visually estimated ejection fraction is 55 to 60%. Moderate left ventricular hypertrophy. Normal diastolic function. Right atrium is mildly dilated. The right ventricle is normal in size and systolic function. No significant valvular abnormalities. Mild dilation of the ascending aorta. Adult Echocardiography Procedure Report Left Ventricle LVEDD (3.7 - 5.6 cm): 4.46 cm LVESD (2.2 - 4.0 cm): 2.89 cm LVIVS thickness (0.6 - 1.2 cm): 1.48 cm LVPW thickness (0.5 - 1.0 cm): 1.52 cm e': 11.70 cm/s E - e': 5.40 LVOT Area (cm2): 4.91 cm2 LVOT Diameter 2.50 cm Left Ventricular Ejection Fraction: 64.80 % Left Ventricular Ejection Fraction (A2C): 55 % Left Ventricular Ejection Fraction (A4C): 56 % Left Atrium LA Volume Index (2D A2C): 30.40 ml/m2 Left Atrium Systolic Dimension: 4.50 cm Left Atrium Systolic Area(A2C): 21.90 cm2 Left Atrium Systolic Area(A4C): 20.30 cm2 Left Atrium Systolic Volume(A2C): 99990 mm3 Left Atrium Systolic Volume(A4C): 00519 mm3 Mitral Valve MV E to A Ratio: 1 Deceleration [place]: 2450 mm/s2 Mitral Valve A-Wave Peak Velocity: 63.20 cm/s Mitral Valve E-Wave Peak Velocity: 62.70 cm/s Right Ventricle RV Internal Diastolic Dimension: 3.42 cm Aorta AO Root Diam: 3.40 cm Aortic Valve AoV Area (Peak Phoenix): 2.78 cm2 Aortic Valve Cusp Separation: 2.30 cm Peak Velocity(Antegrade Flow): 143.00 cm/s Peak Gradient(Antegrade Flow): 8 mm[Hg] Tricuspid Valve Peak Velocity (Regurgitant Flow): 201.00 cm/s, 171.00 cm/s Pulmonic Valve Peak Velocity: 93.80 cm/s Peak Gradient: 4 mm[Hg] Right Atrium Dictated by: Areli Lei M.D. on 10/17/2021 at 14:17 Approved by: Areli Lei M.D. on 10/17/2021 at 14:20 Normal [facility] NM STRESS/REST MULTIon 10-16 NM STRESS/REST MULTI Patient: YANNICK MAYERS Exam Date: 10/16/2021 : 1955 Gender:M Ordering : DR JOEL ONEAL . Admission #: [id number] Family : Order #: [id number] CLICK HERE TO VIEW EXAM RADIOLOGY REPORT PROCEDURE: RADIONUCLIDE IMAGING STRESS/REST MULTI COMPARISON: None. INDICATIONS: Atrial fibrillation TECHNIQUE: Exam Description: Stress/Rest two day protocol gated SPECT Rest Imagin.7 mCi Tc-99m Cardiolite IV on 10/16/2021 Stress Imaging 25.9 mCi Tc-99m Cardiolite IV on 10/17/2021 Exercise Protocol: Donte Heart Rate (bpm): Rest: 63 Max: 122 PMHR: 79 Blood Pressure: Rest: 144/90 Max: 190/96 Exercise Time: Minutes: 7 Seconds: 30 Stage Reached: Stage: 3 Mets 10.1 Symptoms: Rest and peak stress ECG findings were normal and the exercise portion of the study was normal per attending physician Dr. Oneal . For more details please see separate cardiac stress test report. FINDINGS: QUALITY OF STUDY: Excellent. PERFUSION DEFECT: None. LOCATION: N/A SIZE: N/A. SEVERITY: N/A. TYPE: N/A. WALL MOTION: Normal. LV SIZE: Enlarged; EDV 130 mL. TID / TCD: Yes; 1.1 LVEF: Abnormal. Calculated EF 54%. SUMMARY: Myocardial perfusion imaging study has ABNORMAL findings. CONCLUSION: 1. No reversible ischemia 2. Mild dilation of the left ventricle, end-diastolic volume 130 milliliters 3. Borderline transient ischemic dilation with a ratio of 1.1 4. Borderline low left ventricular ejection fraction of 54% 5. Normal exercise test Dictated by: Miranda Mcfadden MD on 10/17/2021 at 13:07 Approved by: Miranda Mcfadden MD on 10/17/2021 at 13:09 Normal [facility] CBC AUTO DIFFon 10-03-2021 BASO # 0.1 103/ul Normal 0.0-0.1 [facility] Comment on above: Performed By: #### C BC #### [facility] [address] [place] [address] Dr. Agapito Finney Basophils/100 WBC (Bld) 0.9 % Normal 0.2-2.0 [facility] Comment on above: Performed By: #### C BC #### [facility] [address] [place] [address] Dr. Agapito Finney EO # 0.6 103/ul Normal 0.0-0.7 [facility] Comment on above: Performed By: #### C BC #### [facility] [address] [place] [address] Dr. Agapito Finney Eosinophils/100 WBC (Bld) 8.9 % Critically high 0.9-7.0 [facility] Comment on above: Performed By: #### C BC #### [facility] [address] [place] [address] Dr. Agapito Finney Erythrocyte distribution width (RBC) [Ratio] 12.1 % Normal 11.0-15.0 [facility] Comment on above: Performed By: #### C BC #### [facility] [address] [place] [address] Dr. Agapito Finney Hematocrit (Bld) [Volume fraction] 44.4 % Normal 42.0-54.0 [facility] Comment on above: Performed By: #### C BC #### [facility] [address] [place] [address] Dr. Agapito Finney Hemoglobin (Bld) [Mass/Vol] 15.1 g/dL Normal 14.0-18.0 [facility] Comment on above: Performed By: #### C BC #### [facility] [address] [place] [address] Dr. Agapito Finney IG # 0.01 10e3/ul Normal 0.00-0.03 [facility] Comment on above: Performed By: #### C BC #### [facility] [address] [place] [address] Dr. Agapito Finney IG % 0.2 % Normal 0.0-0.5 [facility] Comment on above: Performed By: #### C BC #### [facility] [address] [place] [address] Dr. Agapito Finney LYMPH # 1.8 103/ul Normal 1.2-3.8 [facility] Comment on above: Performed By: #### C BC #### [facility] [address] [place] [address] Dr. Agapito Finney Lymphocytes/100 WBC (Bld) 28.4 % Normal 20.5-60.0 [facility] Comment on above: Performed By: #### C BC #### [facility] [address] [place] [address] Dr. Agapito Finney MANUAL DIFF REQ NO Normal [facility] Comment on above: Performed By: #### C BC #### [facility] [address] [place] [address] Dr. Agapito Finney MCH (RBC) [Entitic mass] 32.9 pg Normal 25.9-34.0 [facility] Comment on above: Performed By: #### C BC #### [facility] [address] [place] [address] Dr. Agapito Finney MCHC (RBC) [Mass/Vol] 34.0 g/dL Normal 29.9-35.2 [facility] Comment on above: Performed By: #### C BC #### [facility] [address] [place] [address] Dr. Agapito Finney MCV (RBC) [Entitic vol] 96.7 fL Critically high 80.0-94.0 [facility] Comment on above: Performed By: #### C BC #### [facility] [address] [place] [address] Dr. Agapito Finney MONO # 1.0 103/ul Critically high 0.3-0.8 [facility] Comment on above: Performed By: #### C BC #### [facility] [address] [place] [address] Dr. Agapito Finney Monocytes/100 WBC (Bld) 15.1 % Critically high 1.7-12.0 [facility] Comment on above: Performed By: #### C BC #### [facility] [address] [place] [address] Dr. Agapito Finney NEUT # 3.0 103/ul Normal 1.4-6.5 [facility] Comment on above: Performed By: #### C BC #### [facility] [address] [place] [address] Dr. Agapito Finney Neutrophils/100 WBC (Bld) 46.5 % Normal 43.0-75.0 [facility] Comment on above: Performed By: #### C BC #### [facility] [address] [place] [address] Dr. Agapito Finney Platelet mean volume (Bld) [Entitic vol] 9.6 fL Normal 9.5-13.5 [facility] Comment on above: Performed By: #### C BC #### [facility] [address] [place] [address] Dr. Agapito Finney PLT 136 103/ul Critically low 150-450 [facility] Comment on above: Performed By: #### C BC #### [facility] [address] [place] [address] Dr. Agapito Finney RBC 4.59 106/ul Critically low 4.70-6.10 [facility] Comment on above: Performed By: #### C BC #### [facility] [address] [place] [address] Dr. Agapito Finney WBC 6.5 103/ul Normal 4.0-11.0 [facility] Comment on above: Performed By: #### C BC #### [facility] [address] [place] [address] Dr. Agapito Finney LACTATE/LACTIC ACIDon 2021 Lactate [Moles/Vol] 1.2 mmol/L Normal 0.7-2.0 [facility] Comment on above: Performed By: #### L ACT #### [facility] [address] [place] [address] Dr. Agapito Finney MAGNESIUMon 10-03-2021 Magnesium [Mass/Vol] 2.2 mg/dL Normal 1.6-2.3 [facility] Comment on above: Performed By: #### B MP #### [facility] [address] [place] [address] Dr. Agapito Finney PROF 14(COMP METB)on 022 Albumin [Mass/Vol] 3.2 g/dL Critically low 3.5-5.0 [facility] Comment on above: Performed By: #### B MP #### [facility] [address] [place] [address] Dr. Agapito Finney Albumin/Globulin [Mass ratio] 0.8 {ratio} Normal [facility] Comment on above: Performed By: #### B MP #### [facility] [address] [place] [address] Dr. Agapito Finney ALP [Catalytic activity/Vol] 88 U/L Normal 38-126 [facility] Comment on above: Performed By: #### B MP #### [facility] [address] [place] [address] Dr. Agapito Finney ALT [Catalytic activity/Vol] 54 U/L Normal 21-72 [facility] Comment on above: Performed By: #### B MP #### [facility] [address] [place] [address] Dr. Agapito Finney Anion gap [Moles/Vol] 6.8 mmol/L Normal [facility] Comment on above: Performed By: #### B MP #### [facility] [address] [address] [address] Agapito Finney AST [Catalytic activity/Vol] 51 U/L Normal 17-59 [facility] Comment on above: Performed By: #### B MP #### [facility] [address] [address] [address] Agapito Finney Bilirubin [Mass/Vol] 0.7 mg/dL Normal 0.2-1.3 [facility] Comment on above: Performed By: #### B MP #### [facility] [address] [address] [address] Agapito Finney Calcium [Mass/Vol] 9.7 mg/dL Normal 8.4-10.2 [facility] Comment on above: Performed By: #### B MP #### [facility] [address] [address] [address] Agapito Finney Chloride [Moles/Vol] 106 mmol/L Normal 98-107 [facility] Comment on above: Performed By: #### B MP #### [facility] [address] [address] [address] Agapito Finney CO2 [Moles/Vol] 30.1 mmol/L Critically high 22.0-30.0 [facility] Comment on above: Performed By: #### B MP #### [facility] [address] [address] [address] Agapito Finney Creatinine [Mass/Vol] 0.80 mg/dL Normal 0.66-1.25 [facility] Comment on above: Performed By: #### B MP #### [facility] [address] [address] [address] Agapito Finney EGFR-AF GAMBIAN >60 Normal >=60 [facility] Comment on above: Performed By: #### B MP #### [facility] [address] [address] [address] Agapito Finney EGFR-NON AF GAMBIAN >60 Normal >=60 [facility] Comment on above: Performed By: #### B MP #### [facility] [address] [address] [address] Agapito Finney Globulin (S) [Mass/Vol] 3.9 g/dL Normal [facility] Comment on above: Performed By: #### B MP #### [facility] [address] [address] [address] Agapito Finney Glucose [Mass/Vol] 123 mg/dL Critically high 74-106 [facility] Comment on above: Performed By: #### B MP #### [facility] [address] [address] [address] Agapito Finney Potassium [Moles/Vol] 3.9 mmol/L Normal 3.4-5.0 [facility] Comment on above: Performed By: #### B MP #### [facility] [address] [place] [address] Dr. Agapito Finney Protein [Mass/Vol] 7.1 g/dL Normal 6.1-8.2 [facility] Comment on above: Performed By: #### B MP #### [facility] [address] [address] [address] Agapito Finney Sodium [Moles/Vol] 139 mmol/L Normal 137-145 [facility] Comment on above: Performed By: #### B MP #### [facility] [address] [address] [address] Agapito Finney Urea nitrogen [Mass/Vol] 8.0 mg/dL Critically low 9.0-20.0 [facility] Comment on above: Performed By: #### B MP #### [facility] [address] [address] [address] Agapito Finney Urea nitrogen/Creatinine [Mass ratio] 10.0 mg/mg Normal [facility] Comment on above: Performed By: #### B MP #### [facility] [address] [address] [address] Agapito Finney TROPONIN, HIGH SENSITIVITYon 10-03-2021 HSTROP 10.0 pg/mL Normal 4.0-42.2 [facility] Comment on above: Result Comment: CUT- OFF POINTS HAVE BEEN ESTABLISHED BASED ON THE FOURTH UNIVERSAL DEFINITIONS OF MYOCARDIAL INFARCTION. THE UPPER REFERENCE LIMIT (URL) OF TROPONIN, DEFINED THE 99TH PERCENTILE OF cTnI DISTRIBUTION IN A REFERENCE POPULATION, HAS BEEN CONFIRMED THE DECISION THRESHOLD FOR GA DIAGNOSIS. Performed By: #### B MP #### [facility] [address] [address] [address] Agapito Finney XR CHEST 1 Von 10-03-2021 XR CHEST 1 V CHEST X-RAY, 1 VIEW HISTORY: Tachycardia. COMPARISON: 10/01/2021. FINDINGS: The heart, bob, and mediastinum are unremarkable. The lungs are grossly clear. There are no pleural effusions. There is no pneumothorax. IMPRESSION: No evidence of acute cardiopulmonary disease. Electronically authenticated by: SOFI BRENNAN Date: 2021-10-03 19:58 Normal [facility] CARDIAC VITO ADMITon 022 CK [Catalytic activity/Vol] 90 U/L Normal 55-170 [facility] Comment on above: Performed By: #### Jennifer GEE, CMP #### [facility] [address] [place] [address] Dr. Agapito Finney CK.MB [Mass/Vol] 2.04 ng/mL Normal <=2.37 [facility] Comment on above: Performed By: #### Jennifer GEE, CMP #### [facility] [address] [place] [address] Dr. Agapito Finney HSTROP 11.1 pg/mL Normal 4.0-42.2 [facility] Comment on above: Result Comment: CUT- OFF POINTS HAVE BEEN ESTABLISHED BASED ON THE FOURTH UNIVERSAL DEFINITIONS OF MYOCARDIAL INFARCTION. THE UPPER REFERENCE LIMIT (URL) OF TROPONIN, DEFINED THE 99TH PERCENTILE OF cTnI DISTRIBUTION IN A REFERENCE POPULATION, HAS BEEN CONFIRMED THE DECISION THRESHOLD FOR GA DIAGNOSIS. Performed By: #### C MARLEN, CMP #### [facility] [address] [place] [address] Dr. Agapito Finney MARYAN 47.0 ng/mL Normal <=121.0 [facility] Comment on above: Performed By: #### Jennifer GEE, CMP #### [facility] [address] [place] [address] Dr. Agapito Finney CBC AUTO DIFFon 10-01-2021 BASO # 0.1 103/ul Normal 0.0-0.1 [facility] Comment on above: Performed By: #### C BC #### [facility] [address] [place] [address] Dr. Agapito Finney Basophils/100 WBC (Bld) 0.8 % Normal 0.2-2.0 [facility] Comment on above: Performed By: #### C BC #### [facility] [address] [place] [address] Dr. Agapito Finney EO # 0.6 103/ul Normal 0.0-0.7 [facility] Comment on above: Performed By: #### C BC #### [facility] [address] [place] [address] Dr. Agapito Finney Eosinophils/100 WBC (Bld) 8.7 % Critically high 0.9-7.0 [facility] Comment on above: Performed By: #### C BC #### [facility] [address] [place] [address] Dr. Agapito Finney Erythrocyte distribution width (RBC) [Ratio] 12.1 % Normal 11.0-15.0 [facility] Comment on above: Performed By: #### C BC #### [facility] [address] [place] [address] Dr. Agapito Finney Hematocrit (Bld) [Volume fraction] 46.0 % Normal 42.0-54.0 [facility] Comment on above: Performed By: #### C BC #### [facility] [address] [place] [address] Dr. Agapito Finney Hemoglobin (Bld) [Mass/Vol] 15.8 g/dL Normal 14.0-18.0 [facility] Comment on above: Performed By: #### C BC #### [facility] [address] [place] [address] Dr. Agapito Finney IG # 0.02 10e3/ul Normal 0.00-0.03 [facility] Comment on above: Performed By: #### C BC #### [facility] [address] [address] [address] Agapito Finney IG % 0.3 % Normal 0.0-0.5 [facility] Comment on above: Performed By: #### C BC #### [facility] [address] [address] [address] Agapito Finney LYMPH # 1.7 103/ul Normal 1.2-3.8 [facility] Comment on above: Performed By: #### C BC #### [facility] [address] [place] [address] Dr. Agapito Finney Lymphocytes/100 WBC (Bld) 26.7 % Normal 20.5-60.0 [facility] Comment on above: Performed By: #### C BC #### [facility] [address] [place] [address] Dr. Agapito Finney MANUAL DIFF REQ NO Normal [facility] Comment on above: Performed By: #### C BC #### [facility] [address] [place] [address] Dr. Agapito Finney MCH (RBC) [Entitic mass] 33.5 pg Normal 25.9-34.0 [facility] Comment on above: Performed By: #### C BC #### [facility] [address] [place] [address] Dr. Agapito Finney MCHC (RBC) [Mass/Vol] 34.3 g/dL Normal 29.9-35.2 [facility] Comment on above: Performed By: #### C BC #### [facility] [address] [place] [address] Dr. Agapito Finney MCV (RBC) [Entitic vol] 97.5 fL Critically high 80.0-94.0 [facility] Comment on above: Performed By: #### C BC #### [facility] [address] [place] [address] Dr. Agapito Finney MONO # 0.9 103/ul Critically high 0.3-0.8 [facility] Comment on above: Performed By: #### C BC #### [facility] [address] [place], [place] [id number] Dr. Agapito Finney Monocytes/100 WBC (Bld) 14.1 % Critically high 1.7-12.0 [facility] Comment on above: Performed By: #### C BC #### [facility] [address] [place] [address] Dr. Agapito Finney NEUT # 3.2 103/ul Normal 1.4-6.5 [facility] Comment on above: Performed By: #### C BC #### [facility] [address] [place] [address] Dr. Agapito Finney Neutrophils/100 WBC (Bld) 49.4 % Normal 43.0-75.0 [facility] Comment on above: Performed By: #### C BC #### [facility] [address] [place] [address] Dr. Agapito Finney Platelet mean volume (Bld) [Entitic vol] 10.0 fL Normal 9.5-13.5 [facility] Comment on above: Performed By: #### C BC #### [facility] [address] [place] [address] Dr. Agapito Finney PLT 135 103/ul Critically low 150-450 [facility] Comment on above: Performed By: #### C BC #### [facility] [address] [place] [address] Dr. Agapito Finney RBC 4.72 106/ul Normal 4.70-6.10 [facility] Comment on above: Performed By: #### C BC #### [facility] [address] [place] [address] Dr. Agapito Finney WBC 6.5 103/ul Normal 4.0-11.0 [facility] Comment on above: Performed By: #### C BC #### [facility] [address] [place] [address] Dr. Agapito Finney PROF 14(COMP METB)on 022 Albumin [Mass/Vol] 3.4 g/dL Critically low 3.5-5.0 [facility] Comment on above: Performed By: #### C MADM, CMP #### [facility] [address] [address] [address] Agapito Finney Albumin/Globulin [Mass ratio] 0.8 {ratio} Normal [facility] Comment on above: Performed By: #### C SKYLERM, CMP #### [facility] [address] [address] [address] Agapito Finney ALP [Catalytic activity/Vol] 100 U/L Normal 38-126 [facility] Comment on above: Performed By: #### C SKYLERM, CMP #### [facility] [address] [address] [address] Agapito Finney ALT [Catalytic activity/Vol] 52 U/L Normal 21-72 [facility] Comment on above: Performed By: #### C SKYLERM, CMP #### [facility] [address] [place] [address] Dr. Agapito Finney Anion gap [Moles/Vol] 7.2 mmol/L Normal [facility] Comment on above: Performed By: #### C SKYLERM, CMP #### [facility] [address] [place] [address] Dr. Agapito Finney AST [Catalytic activity/Vol] 47 U/L Normal 17-59 [facility] Comment on above: Performed By: #### C MARLEN, CMP #### [facility] [address] [address] [address] Agapito Finney Bilirubin [Mass/Vol] 0.8 mg/dL Normal 0.2-1.3 [facility] Comment on above: Performed By: #### C MARLEN, CMP #### [facility] [address] [place] [address] Dr. Agapito Finney Calcium [Mass/Vol] 10.3 mg/dL Critically high 8.4-10.2 [facility] Comment on above: Performed By: #### C SKYLERM, CMP #### [facility] [address] [place] [address] Dr. Agapito Finney Chloride [Moles/Vol] 104 mmol/L Normal 98-107 [facility] Comment on above: Performed By: #### C SKYLERM, CMP #### [facility] [address] [address] [address] Agapito Finney CO2 [Moles/Vol] 30.6 mmol/L Critically high 22.0-30.0 [facility] Comment on above: Performed By: #### C MARLEN, CMP #### [facility] [address] [address] [address] Agapito Finney Creatinine [Mass/Vol] 0.98 mg/dL Normal 0.66-1.25 [facility] Comment on above: Performed By: #### C MARLEN, CMP #### [facility] [address] [address] [address] Agapito Finney EGFR-AF GAMBIAN >60 Normal >=60 [facility] Comment on above: Performed By: #### C MARLEN, CMP #### [facility] [address] [address] [address] Agapito Finney EGFR-NON AF GAMBIAN >60 Normal >=60 [facility] Comment on above: Performed By: #### C MARLEN, CMP #### [facility] [address] [address] [address] Agapito Finney Globulin (S) [Mass/Vol] 4.1 g/dL Normal [facility] Comment on above: Performed By: #### C MARLEN, CMP #### [facility] [address] [address] [address] Agapito Finney Glucose [Mass/Vol] 106 mg/dL Normal 74-106 [facility] Comment on above: Performed By: #### C MARLEN, CMP #### [facility] [address] [address] [address] Agapito Finney Potassium [Moles/Vol] 3.8 mmol/L Normal 3.4-5.0 [facility] Comment on above: Performed By: #### C MARLEN, CMP #### [facility] [address] [address] [address] Agapito Finney Protein [Mass/Vol] 7.5 g/dL Normal 6.1-8.2 [facility] Comment on above: Performed By: #### C MARLEN, CMP #### [facility] [address] [address] [address] Agapito Finney Sodium [Moles/Vol] 138 mmol/L Normal 137-145 [facility] Comment on above: Performed By: #### C MARLEN, CMP #### [facility] [address] [place] [address] Dr. Agapito Finney Urea nitrogen [Mass/Vol] 7.0 mg/dL Critically low 9.0-20.0 [facility] Comment on above: Performed By: #### C MARLEN, CMP #### [facility] [address] [address] [address] Agapito Finney Urea nitrogen/Creatinine [Mass ratio] 7.1 mg/mg Normal [facility] Comment on above: Performed By: #### C MARLEN, CMP #### [facility] [address] [place] [address] Dr. Agapito Finney PROTIMEon 10-01-2021 INR Coag (PPP) [Relative time] 1.08 {INR} Normal [facility] Comment on above: Performed By: #### B MP #### [facility] [address] [place] [address] Dr. Agapito Finney INR GUIDELINES SEE BELOW Normal [facility] Comment on above: Result Comment: RICK RED INR: 2.0 - 3.0 CONDITIONS NOT LISTED BELOW 2.5 - 3.5 FOR PROSTHETIC HEART VALVE REPLACEMENT 2.5 - 3.5 RECURRENT THROMBOSIS Performed By: #### B MP #### [facility] [address] [place] [address] Dr. Agapito Finney PT Coag (PPP) [Time] 11.6 s Normal 9.0-11.6 [facility] Comment on above: Performed By: #### B MP #### [facility] [address] [place] [address] Dr. Agapito Finney PTTon 10-01-2021 aPTT Coag (Bld) [Time] 29.9 s Normal 22.3-36.2 [facility] Comment on above: Performed By: #### B MP #### [facility] [address] [place] [address] Dr. Agapito Finney XR CHEST 1 Von 10-01-2021 XR CHEST 1 V EXAM: XR CHEST 1 V HISTORY: CHEST PAIN, UNSPECIFIED COMPARISON: 06/21/2020. TECHNIQUE: PA and Lateral chest radiographs FINDINGS: Tubes, lines and devices: Left chest cardiac device. Device project over the sternum Lungs: Adequate inflation. Clear lungs. No evidence of pneumonia or pulmonary edema. Pleura: No pneumothorax. No pleural effusion. Heart and mediastinum: Prominent cardiac silhouette. Bones/soft tissues: No acute osseous findings. Unremarkable soft tissues. Abdomen: Unremarkable. IMPRESSION: No acute pulmonary findings. Electronically authenticated by: CHLOE MALDONADO Date: 2021-10-01 20:29 Normal [facility] BUNon 09-26-2021 Urea nitrogen [Mass/Vol] 9 mg/dL Normal 7-25 [facility] Comment on above: Performed By: #### C REAB, BUN, MGO, KKO #### [facility] (DEFAULT) [address] [place] [id number] CREATININE SERUMon Creatinine [Mass/Vol] 0.79 mg/dL Normal 0.70-1.30 [facility] Comment on above: Performed By: #### C REAB, BUN, MGO, KKO #### [facility] (DEFAULT) [address] [place] [address] 47730 eGFR, CKD-EPI, Male >90 Normal >=60 [facility] Comment on above: Result Comment: Repo rted eGFR is based on the CKD-EPI 2020 equation using creatinine, age, and sex. Performed By: #### C REAB, BUN, MGO, KKO #### [facility] (DEFAULT) [address] [place] [address] 76694 MAGNESIUMon 09-26-2021 Magnesium [Mass/Vol] 2.1 mg/dL Normal 1.6-2.6 [facility] Comment on above: Performed By: #### C REAB, BUN, MGO, KKO #### [facility] (DEFAULT) [address] [place] [address] [id number] POTASSIUMon 09-26-2021 Potassium [Moles/Vol] 4.9 mmol/L Normal 3.5-5.0 [facility] Comment on above: Performed By: #### C REAB, BUN, MGO, KKO #### [facility] (DEFAULT) [address] [place] [address] BUNon 06-13-2021 Urea nitrogen [Mass/Vol] 9 mg/dL Normal 7-22 [facility] Comment on above: Performed By: #### M GO KKO, CREAB, BUN #### [facility] (DEFAULT) [address] [place] [address] 32074 CREATININE SERUMon Creatinine [Mass/Vol] 0.82 mg/dL Normal 0.70-1.30 [facility] Comment on above: Performed By: #### C REAB, BUN, MGO, KKO #### [facility] (DEFAULT) [address] [place] [address] 94754 EST GFR, >=60 Normal >=60 [facility] Comment on above: Performed By: #### C REAB, BUN, MGO, KKO #### [facility] (DEFAULT) [address] [place] [address] 32323 EST GFR,Non >=60 Normal >=60 [facility] Comment on above: Performed By: #### C REAB, BUN, MGO, KKO #### [facility] (DEFAULT) [address] [place] [address] 94637 MAGNESIUMon 06-13-2021 Magnesium [Mass/Vol] 1.9 mg/dL Normal 1.6-2.6 [facility] Comment on above: Performed By: #### M GO, KKO, CREAB, BUN #### [facility] (DEFAULT) [address] [place] [address] 19607 POTASSIUMon 06-13-2021 Potassium [Moles/Vol] 4.3 mmol/L Normal 3.5-5.0 [facility] Comment on above: Performed By: #### C REAB, BUN, MGO, KKO #### [facility] (DEFAULT) [address] [place] [address]309 BUNon 03-06-2021 Urea nitrogen [Mass/Vol] 7 mg/dL Normal 7-22 [facility] Comment on above: Performed By: #### K KO, BUN, MGO, CREAB #### [facility] (DEFAULT) [address] [place] [address] 12229 CREATININE SERUMon Creatinine [Mass/Vol] 0.83 mg/dL Normal 0.70-1.30 [facility] Comment on above: Performed By: #### K KO, BUN, MGO, CREAB #### [facility] (DEFAULT) [address] [place] [address] 30171 EST GFR, >=60 Normal >=60 [facility] Comment on above: Performed By: #### K KO, BUN, MGO, CREAB #### [facility] (DEFAULT) [address] [place] [address] 53270 EST GFR,Non >=60 Normal >=60 [facility] Comment on above: Performed By: #### K KO, BUN, MGO, CREAB #### [facility] (DEFAULT) [address] [place] [address] 14796 MAGNESIUMon 03-06-2021 Magnesium [Mass/Vol] 2.1 mg/dL Normal 1.6-2.6 [facility] Comment on above: Performed By: #### K KO, BUN, MGO, CREAB #### [facility] (DEFAULT) [address] [place] [address] 85209 POTASSIUMon 03-06-2021 Potassium [Moles/Vol] 4.7 mmol/L Normal 3.5-5.0 [facility] Comment on above: Performed By: #### K KO, BUN, MGO, CREAB #### [facility] ([place] [address] Vital Signs Date Time Vital Sign Value Performing Clinician Facility 04-13-2025 09:19-0400 Body height 179.1 cm Jyoti Tirado MD Work Phone: [facility] 04-13-2025 09:19-0400 Body mass index (BMI) [Ratio] 33.95 kg/m2 Jyoti Tirado MD Work Phone: [facility] 04-13-2025 09:19-0400 Body weight 108.86 kg Jyoti Tirado MD Work Phone: [facility] 04-13-2025 09:19-0400 Diastolic blood pressure 88 mm[Hg] Jyoti Tirado MD Work Phone: [facility] 04-13-2025 09:19-0400 Heart rate 92 /min Jyoti Tirado MD Work Phone: [facility] 04-13-2025 09:19-0400 Systolic blood pressure 126 mm[Hg] Jyoti Tirado MD Work Phone: [facility] 03-14-2025 09:10-0400 Body height 177.8 cm Erin Owens MD Work Phone: [facility] 03-14-2025 09:10-0400 Body mass index (BMI) [Ratio] 33.72 kg/m2 Erin Owens MD Work Phone: [facility] 03-14-2025 09:10-0400 Body weight 106.59 kg Erin Owens MD Work Phone: [facility] 03-14-2025 09:10-0400 Diastolic blood pressure 76 mm[Hg] Erin Owens MD Work Phone: [facility] 03-14-2025 09:10-0400 Heart rate 76 /min Erin Owens MD Work Phone: [facility] 03-14-2025 09:10-0400 Respiratory rate 16 /min Erin Owens MD Work Phone: [facility] 03-14-2025 09:10-0400 SaO2% (BldA) [Mass fraction] 96 % Erin Owens MD Work Phone: [facility] 03-14-2025 09:10-0400 Systolic blood pressure 136 mm[Hg] Erin Owens MD Work Phone: [facility] 12-09-2024 09:41-0400 Body height 177.8 cm Renu Hemmer PA Work Phone: [facility] 12-09-2024 09:41-0400 Body mass index (BMI) [Ratio] 33.6 kg/m2 Renu Hemmer PA Work Phone: [facility] 12-09-2024 09:41-0400 Body weight 106.23 kg Renu Hemmer PA Work Phone: [facility] 12-09-2024 09:41-0400 Diastolic blood pressure 74 mm[Hg] Renu Hemmer PA Work Phone: [facility] 12-09-2024 09:41-0400 Heart rate 104 /min Renu Hemmer PA Work Phone: [facility] 12-09-2024 09:41-0400 Respiratory rate 16 /min Renu Hemmer PA Work Phone: [facility] 12-09-2024 09:41-0400 SaO2% (BldA) [Mass fraction] 94 % Renu Hemmer PA Work Phone: [facility] 12-09-2024 09:41-0400 Systolic blood pressure 132 mm[Hg] Renu Hemmer PA Work Phone: [facility] 12-04-2024 11:48-0400 Body height 179.07 cm [facility] 12-04-2024 11:48-0400 Body mass index (BMI) [Ratio] 34.3 kg/m2 [facility] 12-04-2024 11:48-0400 Body temperature 98.3 [degF] [facility] 12-04-2024 11:48-0400 Body weight 110.22 kg [facility] 12-04-2024 11:48-0400 Diastolic blood pressure 87 mm[Hg] [facility] 12-04-2024 11:48-0400 Heart rate 80 /min [facility] 12-04-2024 11:48-0400 Respiratory rate 16 /min [facility] 12-04-2024 11:48-0400 SaO2% (BldA) [Mass fraction] 97 % [facility] 12-04-2024 11:48-0400 Systolic blood pressure 146 mm[Hg] [facility] 09-01-2024 09:43-0500 Body height 179.1 cm Jyoti Tirado MD Work Phone: [facility] 09-01-2024 09:43-0500 Body mass index (BMI) [Ratio] 32.82 kg/m2 Jyoti Tirado MD Work Phone: [facility] 09-01-2024 09:43-0500 Body weight 105.23 kg Jyoti Tirado MD Work Phone: [facility] 09-01-2024 09:43-0500 Diastolic blood pressure 68 mm[Hg] Jyoti Tirado MD Work Phone: [facility] 09-01-2024 09:43-0500 Heart rate 79 /min Jyoti Tirado MD Work Phone: [facility] 09-01-2024 09:43-0500 Systolic blood pressure 112 mm[Hg] Jyoti Tirado MD Work Phone: [facility] 08-17-2024 09:20-0500 Body height 179.1 cm Jyoti Tirado MD Work Phone: [facility] 08-17-2024 09:20-0500 Body mass index (BMI) [Ratio] 33.07 kg/m2 Jyoti Tirado MD Work Phone: [facility] 08-17-2024 09:20-0500 Body weight 106.05 kg Jyoti Tirado MD Work Phone: [facility] 08-17-2024 09:20-0500 Diastolic blood pressure 90 mm[Hg] Jyoti Tirado MD Work Phone: [facility] 08-17-2024 09:20-0500 Heart rate 90 /min Jyoti Tirado MD Work Phone: [facility] 08-17-2024 09:20-0500 Systolic blood pressure 150 mm[Hg] Jyoti Tirado MD Work Phone: [facility] 08-02-2024 14:16-0500 Body height 177.8 cm Erin Owens MD Work Phone: [facility] 08-02-2024 14:16-0500 Body mass index (BMI) [Ratio] 34.72 kg/m2 Erin Owens MD Work Phone: [facility] 08-02-2024 14:16-0500 Body weight 109.77 kg Erin Owens MD Work Phone: [facility] 08-02-2024 14:16-0500 Diastolic blood pressure 88 mm[Hg] Erin Owens MD Work Phone: [facility] 08-02-2024 14:16-0500 Heart rate 87 /min Erin Owens MD Work Phone: [facility] 08-02-2024 14:16-0500 SaO2% (BldA) [Mass fraction] 98 % Erin Owens MD Work Phone: [facility] 08-02-2024 14:16-0500 Systolic blood pressure 138 mm[Hg] Erin Owens MD Work Phone: [facility] 06-28-2024 08:52-0500 Body height 177.8 cm Erin Owens MD Work Phone: [facility] 06-28-2024 08:52-0500 Body mass index (BMI) [Ratio] 33.72 kg/m2 Erin Owens MD Work Phone: [facility] 06-28-2024 08:52-0500 Body weight 106.59 kg Erin Owens MD Work Phone: [facility] 06-28-2024 08:52-0500 Diastolic blood pressure 78 mm[Hg] Erin Owens MD Work Phone: [facility] 06-28-2024 08:52-0500 Heart rate 93 /min Erin Owens MD Work Phone: [facility] 06-28-2024 08:52-0500 SaO2% (BldA) [Mass fraction] 97 % Erin Owens MD Work Phone: [facility] 06-28-2024 08:52-0500 Systolic blood pressure 124 mm[Hg] Erin Owens MD Work Phone: [facility] 01-12-2024 10:06-0400 Body height 179.1 cm Fernando Nova MD Work Phone: [facility] 01-12-2024 10:06-0400 Body mass index (BMI) [Ratio] 32.54 kg/m2 Fernando Nova MD Work Phone: [facility] 01-12-2024 10:06-0400 Body weight 104.33 kg Fernando Nova MD Work Phone: [facility] 01-12-2024 10:06-0400 Diastolic blood pressure 86 mm[Hg] Fernando Nova MD Work Phone: [facility] 01-12-2024 10:06-0400 Heart rate 84 /min Fernando Nova MD Work Phone: [facility] 01-12-2024 10:06-0400 Systolic blood pressure 136 mm[Hg] Fernando Nova MD Work Phone: [facility] 06-03-2022 09:55-0400 Body height 179.07 cm Joel Oneal Work Phone: [facility] DO Work Phone: 06-03-2022 09:55-0400 Body mass index (BMI) [Ratio] 34.09 kg/m2 Joel Oneal Work Phone: [facility] [facility] DO Work Phone: 06-03-2022 09:55-0400 Body surface area Derived from formula 2.27 m2 Joel Oneal Work Phone: [facility] [facility] DO Work Phone: 06-03-2022 09:55-0400 Body weight 109.32 kg Joel Oneal Work Phone: [facility] [facility] DO Work Phone: 06-03-2022 09:55-0400 Diastolic blood pressure 64 mm[Hg] Joel Oneal Work Phone: [facility] [facility] DO Work Phone: 06-03-2022 09:55-0400 Heart rate 67 /min Joel Oneal Work Phone: [facility] [facility] DO Work Phone: 06-03-2022 09:55-0400 Systolic blood pressure 118 mm[Hg] Joel Oneal Work Phone: [facility] [facility] DO Work Phone: 05-07-2022 15:06-0400 Blood Pressure Location Mary JUNE [facility] 05-07-2022 15:06-0400 Diastolic blood pressure 80 mm[Hg] Mary JUNE [facility] 05-07-2022 15:06-0400 Heart rate 75 /min Mary JUNE [facility] 05-07-2022 15:06-0400 Respiratory rate 16 /min Mary JUNE [facility] 05-07-2022 15:06-0400 Systolic blood pressure 138 mm[Hg] Mary JUNE [facility] 04-22-2022 12:22-0400 Blood Pressure Location Mary JUNE [facility] 04-22-2022 12:22-0400 Diastolic blood pressure 87 mm[Hg] Mary JUNE [facility] 04-22-2022 12:22-0400 Heart rate 80 /min Mary JUNE [facility] 04-22-2022 12:22-0400 Respiratory rate 16 /min Mary JUNE [facility] 04-22-2022 12:22-0400 Systolic blood pressure 139 mm[Hg] Mary JUNE [facility] 04-13-2022 14:49-0400 Body temperature 98.1 [degF] MD Joel Oneal Work Phone: [facility] 04-13-2022 14:49-0400 Diastolic blood pressure 95 mm[Hg] MD Joel Oneal Work Phone: [facility] 04-13-2022 14:49-0400 Heart rate 71 /min MD Joel Oneal Work Phone: [facility] 04-13-2022 14:49-0400 Respiratory rate 20 /min MD Joel Oneal Work Phone: [facility] 04-13-2022 14:49-0400 SaO2% (BldA) [Mass fraction] 95 % MD Joel Oneal Work Phone: [facility] 04-13-2022 14:49-0400 Systolic blood pressure 167 mm[Hg] MD Joel Oneal Work Phone: [facility] 04-13-2022 14:47-0400 Body height 176.53 cm MD Joel Oneal Work Phone: [facility] 04-13-2022 14:47-0400 Body weight 109 kg MD Joel Oneal Work Phone: [facility] 11-02-2021 12:47-0400 Diastolic blood pressure 86 mm[Hg] Joel Agudeloight Work Phone: [facility] DO Work Phone: 11-02-2021 12:47-0400 Systolic blood pressure 136 mm[Hg] Joel Oneal Work Phone: [facility] [facility] DO Work Phone: 11-02-2021 12:46-0400 Body height 179.07 cm Joel Agudeloight Work Phone: [facility] [facility] DO Work Phone: 11-02-2021 12:46-0400 Body mass index (BMI) [Ratio] 32.54 kg/m2 Joel Agudeloight Work Phone: [facility] [facility] DO Work Phone: 11-02-2021 12:46-0400 Body surface area Derived from formula 2.23 m2 Joel Agudeloight Work Phone: [facility] DO Work Phone: 11-02-2021 12:46-0400 Body weight 104.33 kg Joel Oneal Work Phone: [facility] [facility] DO Work Phone: 11-02-2021 12:46-0400 Diastolic blood pressure 80 mm[Hg] Joel Oneal Work Phone: [facility] [facility] DO Work Phone: 11-02-2021 12:46-0400 Heart rate 65 /min Joel Oneal Work Phone: [facility] [facility] DO Work Phone: 11-02-2021 12:46-0400 Systolic blood pressure 138 mm[Hg] Joel Oneal Work Phone: [facility] [facility] DO Work Phone: Encounters Encounter Date Encounter Type Care Provider Facility Start: 04-13-2025 End: 04-13-2025 Office outpatient visit 25 minutes Jyoti Tirado MD Work Phone: [facility] Comment on above: Paroxysmal atrial fi brillation (Multi) (Primary Dx); High risk medication use; Anticoagulated; Essential hypertension, benign; Obstructive sleep apnea syndrome; Obesity (BMI 30.0-34.9); Never smoked tobacco; Obesity, Class I, BMI 30-34.9 Start: 03-14-2025 End: 03-14-2025 Bamboo flowsheet Erin Owens MD Work Phone: [facility] Start: 03-14-2025 End: 03-14-2025 Bamboo flowsannette Owens MD Work Phone: [facility] Start: 03-14-2025 End: 03-14-2025 ambulatory ERIN OWENS Not Available Start: 03-14-2025 End: 03-14-2025 Office outpatient visit 25 minutes Erin Owens MD Work Phone: [facility] Comment on above: Elevated blood sugar (Primary Dx); Paroxysmal atrial fibrillation (HCC) Start: 02-01-2025 End: 02-01-2025 Patient encounter procedure [facility] Comment on above: Seasonal allergies Start: 02-01-2025 End: 02-01-2025 ambulatory RENU HORVATH Not Available Start: 12-09-2024 End: 12-09-2024 Bamboo flowsheet Renu CROCKETT Work Phone: [facility] Start: 12-09-2024 End: 12-09-2024 Bamboo flowsheet Renu CROCKETT Work Phone: [facility] Start: 12-09-2024 End: 12-09-2024 Clinisync Result Encounter Renu CROCKETT Work Phone: [facility] Unsolicited Start: 12-09-2024 End: 12-09-2024 Office outpatient visit 25 minutes Renu CROCKETT Work Phone: [facility] Comment on above: Left foot pain (Prim karen Dx); Pain and swelling of left lower leg; Chronic bilateral low back pain without sciatica; Paroxysmal atrial fibrillation (CMS/HCC) Start: 12-09-2024 End: 12-09-2024 ambulatory RENU HORVATH Not Available Start: 12-04-2024 End: 12-04-2024 ambulatory [facility] Work Phone: Start: 12-04-2024 End: 12-04-2024 Patient encounter procedure [facility] Work Phone: Start: 09-01-2024 End: 09-01-2024 Office outpatient visit 10 minutes Jyoti Tirado MD Work Phone: [facility] Comment on above: Paroxysmal atrial fi brillation (Multi); High risk medication use; Anticoagulated; Essential hypertension, benign; Sleep apnea, unspecified type; Never smoked tobacco; Obesity (BMI 30.0-34.9) Start: 09-01-2024 End: 09-01-2024 ambulatory [facility] Start: 08-17-2024 End: 08-17-2024 Office outpatient visit 25 minutes Jyoti Tirado MD Work Phone: [facility] Comment on above: Paroxysmal atrial fi brillation (Multi) (Primary Dx); Essential hypertension, benign; Prolonged Q-T interval on ECG; Anticoagulated; High risk medication use; Obstructive sleep apnea syndrome; Obesity (BMI 30.0-34.9); Never smoked tobacco; Elevated transaminase level Start: 08-17-2024 End: 08-17-2024 ambulatory [facility] Start: 08-02-2024 End: 08-02-2024 Assay of hemosiderin, quant Erin Owens MD Work Phone: [facility] Work Phone: Start: 08-02-2024 End: 08-02-2024 ambulatory ERIN OWENS Not Available Start: 08-02-2024 End: 08-02-2024 Bamboo flowsheet Erin Owens MD Work Phone: [facility] Start: 08-02-2024 End: 08-02-2024 Bamboo flowsheet Erin Owens MD Work Phone: [facility] Start: 08-02-2024 End: 08-02-2024 Patient encounter procedure Erin Owens MD Work Phone: [facility] Comment on above: Routine general medi sherry examination at health care facility (Primary Dx); Type 2 diabetes mellitus without complications (CMS/HCC); Benign essential hypertension (CMS/HCC); Obesity (BMI 30.0-34.9); Mixed hyperlipidemia (CMS/HCC); Paroxysmal atrial fibrillation (CMS/HCC); Medicare annual wellness visit, subsequent; History of nephrolithiasis Start: 07-08-2024 End: 07-08-2024 Bamboo [employer] [facility] [place] Work Phone: [facility] Start: 07-08-2024 End: 07-08-2024 Bamboo flowsheet [facility] [place] Work Phone: [facility] Start: 07-08-2024 End: 07-08-2024 Office outpatient new 30 minutes [facility] Work Phone: [facility] Comment on above: Seborrheic keratosis (Primary Dx); Lentigo simplex; Melanocytic nevus of trunk Start: 07-08-2024 End: 07-08-2024 ambulatory [facility] Not Available Start: 06-28-2024 End: 06-28-2024 Office outpatient visit 25 minutes Erin Owens MD Work Phone: [facility] Comment on above: OLIVER (obstructive sle ep apnea) (Primary Dx); Paroxysmal atrial fibrillation (CMS/HCC); Neutropenia, unspecified (CMS/HCC); Other thrombophilia (CMS/HCC); Benign essential hypertension (CMS/HCC); Seasonal allergies; Other fatigue; Erectile disorder Start: 06-28-2024 End: 06-28-2024 ambulatory ERIN OWENS Not Available Start: 05-12-2024 End: 05-12-2024 Telephone encounter Erin Owens MD Work Phone: [facility] Start: 01-12-2024 End: 01-12-2024 Office outpatient visit 25 minutes Fernando Nova MD Work Phone: [facility] Comment on above: Paroxysmal atrial fi brillation (Multi); Essential hypertension, benign; Anticoagulated; High risk medication use; Obesity (BMI 30.0-34.9); Never smoked tobacco Start: 01-12-2024 End: 01-12-2024 ambulatory [facility] Start: 06-09-2023 End: 12-15-2023 Patient encounter procedure Erin Owens MD Work Phone: [facility] Start: 04-29-2023 End: 04-29-2023 Emergency department patient visit Todd Christina Facility:[facility] Start: 03-27-2023 Rx Renewal Joel Oneal Work Phone: [facility] [facility] DO Work Phone: Start: 03-17-2023 Rx Renewal Joel Oneal Work Phone: [facility] DO Work Phone: Start: 02-20-2023 Rx Renewal Joel Oneal Work Phone: [facility] DO Work Phone: Start: 08-12-2022 End: 08-13-2022 ambulatory Mary JUNE Facility:[facility] Start: 08-12-2022 End: 08-12-2022 Patient encounter procedure Mary JUNE [facility] Start: 06-03-2022 Office outpatient vi sit 25 minutes Joel Oneal Work Phone: [facility] 250 DO Work Phone: Start: 06-03-2022 ambulatory Joel Oneal Facil ity: Start: 05-07-2022 End: 05-08-2022 ambulatory Mary JUNE Facility:[facility] [place] Start: 05-07-2022 End: 05-07-2022 Patient encounter procedure Mary JUNE [facility] Start: 04-25-2022 End: 04-26-[address] MARY JUNE Facility:[facility] Start: 04-24-2022 Encounter for preprocedural laboratory examination DR AMRY JUNE [facility] Start: 04-23-2022 End: 04-24-[address] MARY JUNE Facility:[facility] Start: 04-23-2022 End: 04-24-2022 Encounter for preprocedural laboratory examination DR MARY JUNE Facility:[facility] Start: 04-22-2022 End: 04-23-2022 ambulatory Mary JUNE Facility:[facility] [place] Start: 04-22-2022 End: 04-22-2022 Patient encounter procedure Mary JUNE [facility] Start: 04-17-2022 End: 04-18-[address] MARY JUNE Facility:[facility] Start: 04-13-2022 End: 04-13-2022 Emergency department patient visit MD Joel Oneal Work Phone: [facility] Start: 01-29-2022 Rx Renewal Joel Oneal Work Phone: [facility] DO Work Phone: Start: 11-16-2021 End: 11-17-[address] FERNANDO NOVA Facility:[facility] Start: 11-02-2021 Office consultation new/estab patient 80 min Joel Oneal Work Phone: [facility] [facility] DO Work Phone: Start: 11-02-2021 Office outpatient ne w 60 minutes Joel Oneal Work Phone: [facility] [facility] DO Work Phone: Start: 11-02-2021 ambulatory Fernando Nova II Faci lity: Start: 10-17-2021 End: 10-18-[address] JOEL ONEAL Facility:[facility]1 Start: 10-16-2021 End: 10-17-[address] JOEL ONEAL Facility:[facility] Start: 10-12-2021 End: 10-13-[address] JOEL ONEAL Facility:[facility]1 Start: 10-04-2021 ambulatory JOEL ONEAL Facility:[facility] Start: 10-03-2021 End: 10-03-[address] CHASE FORRESTER Facility:[facility]1 Start: 10-01-2021 End: 10-01-[address] VITO BOYCE Facility:[facility]1 Start: 09-26-2021 ambulatory RSA JULIEN AUGOSTINI Fac ility:[facility] Start: 09-26-2021 ambulatory RSA JULIEN AUGOSTINJose M Fac ility:[facility] Start: 06-13-2021 ambulatory BENJAMÍN FARAH Facilit y:[facility] Start: 04-05-2021 ambulatory JOEL ONEAL Facility:[facility] Start: 03-06-2021 ambulatory JOSE M WHITTINGTON Fa cility:[facility] Start: 02-05-2018 End: 02-06-2018 Ambulatory DEFAULT PHYSICIAN Facility:[facility] Procedures Date Procedure Procedure Detail Performing Clinician Start: 04-13-2025 Ecg routine ecg w/le ast 12 lds w/i&r Jyoti Tirado MD Work Phone: Start: 03-14-2025 Hemoglobin glycosylated a1c Erin Owens MD Work Phone: Start: 12-09-2024 XR FOOT LT MIN 3V Renu Garrett Alexandru PA Work Phone: Start: 12-09-2024 XR TIBIA FIBULA LT 2V Raquel Tucker Alexandru CROCKETT Work Phone: Start: 09-01-2024 Ecg routine ecg w/le ast 12 lds w/i&r Jyoti Tirado MD Work Phone: Start: 08-17-2024 Ecg routine ecg w/le ast 12 lds w/i&r Jyoti Tirado MD Work Phone: Start: 08-02-2024 Hemoglobin glycosylated a1c Erin Owens MD Work Phone: Start: 06-28-2024 Lipid 1996 panel - S pooja or Plasma Jyoti Tirado MD Work Phone: Start: 01-12-2024 Ecg routine ecg w/le ast 12 lds w/i&r Fernando Nova MD Work Phone: Start: 04-13-2022 CT of abdomen and pe lvis without contrast MD Joel Oneal Work Phone: Arthroplasty of knee Joel mayers Work Phone: Arthroplasty of knee Mary JUNE Cholecystectomy Joel Oneal Work Phone: Colonoscopy Joel Oneal Work Phone: Destructive procedure Joel Oneal Work Phone: Lithotripsy Joel Oneal Work Phone: Plan of Treatment Date Care Activity Detail Author Start: 06-28-2029 Lipid panel Lipid Panel [facility] Start: 06-13-2026 Screening for malign ant neoplasm of colon [facility] Start: 11-23-2025 End: 11-23-2025 Patient encounter procedure 11/23/2025 9:10 AM EDT Office Visit [address] [address] Jyoti Tirado MD [address] [facility] [place] [address] [facility] Start: 10-11-2025 End: 01-09-2026 Basic metabolic 2000 panel - Serum or Plasma Basic Metabolic Panel Lab Routine Paroxysmal atrial fibrillation (Multi) High risk medication use Expected: 10/11/2025 (Approximate), Expires: 01/09/2026 [facility] Service Area Work Phone: Comment on above: Expected: 10/11/2025 (Approximate), Expires: 01/09/2026 Start: 10-11-2025 End: 01-09-2026 CBC panel - Blood by Automated count CBC Lab Routine Paroxysmal atrial fibrillation (Multi) High risk medication use Expected: 10/11/2025, Expires: 01/09/2026 [facility] Work Phone: Comment on above: Expected: 10/11/2025 , Expires: 01/09/2026 Start: 10-11-2025 End: 01-09-2026 Magnesium [Mass/volume] in Serum or Plasma Magnesium Lab Routine Paroxysmal atrial fibrillation (Multi) High risk medication use Expected: 10/11/2025, Expires: 01/09/2026 [facility] Work Phone: Comment on above: Expected: 10/11/2025 , Expires: 01/09/2026 Start: 09-12-2025 End: 09-12-2025 Patient encounter procedure 09/12/2025 9:00 AM EST Office Visit [facility] [address] [facility] [address] [place] [address] Erin Owens MD [address] [facility] [address] [place] [address] [facility] Start: 08-05-2025 Urine screening for protein Diabetes: Urine Protein Screening [facility] Start: 08-03-2025 Medicare Annual Well ness Visit Medicare Annual Wellness Visit (AWV) [facility] Start: 08-02-2025 Medicare Annual Well ness (AWV) Medicare Annual Wellness (AWV) [facility] Start: 06-23-2025 Pneumococcal Vaccine : 65+ Years (1 of 2 - PCV) Pneumococcal Vaccine: 65+ Years (1 of 2 - PCV) [facility] Comment on above: Postponed from 07/31 (Patient Refused) Postponed from 07/31 (Patient Refused) Start: 06-14-2025 Hemoglobin A1c measurement Diabetes: Hemoglobin A1C [facility] Start: 04-13-2025 End: 04-13-2026 Basic metabolic 2000 panel - Serum or Plasma Basic Metabolic Panel Lab Routine Paroxysmal atrial fibrillation (Multi) High risk medication use Expected: 04/13/2025 (Approximate), Expires: 04/13/2026 [facility] Work Phone: Comment on above: Expected: 04/13/2025 (Approximate), Expires: 04/13/2026 Start: 04-13-2025 End: 04-13-2026 CBC panel - Blood by Automated count CBC Lab Routine Paroxysmal atrial fibrillation (Multi) High risk medication use Expected: 04/13/2025 (Approximate), Expires: 04/13/2026 [facility] Work Phone: Comment on above: Expected: 04/13/2025 (Approximate), Expires: 04/13/2026 Start: 04-13-2025 End: 04-13-2026 Magnesium [Mass/volume] in Serum or Plasma Magnesium Lab Routine Paroxysmal atrial fibrillation (Multi) High risk medication use Expected: 04/13/2025 (Approximate), Expires: 04/13/2026 [facility] Work Phone: Comment on above: Expected: 04/13/2025 (Approximate), Expires: 04/13/2026 Start: 04-13-2025 End: 04-13-2025 Patient encounter procedure 04/13/2025 9:20 AM EDT Office Visit [facility] [address] [facility] [address] [place] [id number] Jyoti Tirado MD [facility] [address] [place] [address] [facility] Start: 04-04-2025 COVID-19 Vaccine ( season) COVID-19 Vaccine ( season) [facility] Start: 04-04-[address] [facility] Start: 03-14-2025 End: 03-14-2025 Patient encounter procedure 03/14/2025 9:00 AM EDT Office Visit [facility] [address] [place] [address] Erin Owens MD [address] [facility] [address] [place] [address] [facility] Start: 01-31-2025 End: 01-31-2025 Patient encounter procedure 01/31/2025 9:30 AM EDT Office Visit [facility] [address] [facility] [address] [place] [address] Erin Owens MD [address] [facility] [address] [place] [address] [facility] Start: 12-09-2024 End: 12-09-2025 XR Foot - left 3 Views XR foot 3+ views left Imaging Routine Left foot pain Expected: 12/09/2024, Expires: 12/09/2025 [facility] Work Phone: Comment on above: Expected: 12/09/2024 , Expires: 12/09/2025 Start: 12-09-2024 End: 12-09-2025 XR Tibia and Fibula - left 2 Views XR tibia fibula 2 views left Imaging Routine Pain and swelling of left lower leg Expected: 12/09/2024, Expires: 12/09/2025 [facility] Comment on above: Expected: 12/09/2024 , Expires: 12/09/2025 Start: 12-09-2024 End: 12-09-2024 Patient encounter procedure 12/09/2024 9:30 AM EDT Office Visit [facility] [address] [facility] [address] [place] [address] Renu Horvath PA [address] [facility] [address] [place] [address] Arrived [facility] Comment on above: Arrived Start: 10-31-2024 Hemoglobin A1c measurement Diabetes: Hemoglobin A1C [facility] Start: 09-28-2024 End: 06-28-2025 Prostate specific Ag [Mass/volume] in Serum or Plasma PSA Lab Routine Paroxysmal atrial fibrillation (CMS/HCC) Benign essential hypertension (CMS/HCC) Other fatigue Expected: 09/28/2024 (Approximate), Expires: 06/28/2025 [facility] Comment on above: Expected: 09/28/2024 (Approximate), Expires: 06/28/2025 Start: 08-31-2024 End: 08-31-2024 Patient encounter procedure 08/31/2024 9:30 AM EST Office Visit [address] [address] Jyoti Tirado MD [facility], [address] [address] [facility] Start: 08-18-2024 Influenza vaccination Influenza Vacc ine (#1) [facility] Comment on above: Postponed from 04/04 (Patient Refused) Start: 08-17-2024 End: 08-17-2024 Patient encounter procedure 08/17/2024 9:20 AM EST Office Visit [address] [address] Jyoti Tirado MD [address] [facility], [facility] [address] [place] [address] [facility] Start: 08-02-2024 End: 08-02-2024 Patient encounter procedure 08/02/2024 2:30 PM EST Office Visit [facility] [address] [facility] [address] [place] [id number] Erin Owens MD [address] [facility] [address] [place] [address] Arrived [facility] Comment on above: Arrived Start: 08-02-2024 End: 08-02-2025 Microalbumin/Creatinine panel in random Urine Microalbumin / creatinine urine ratio Lab Routine Type 2 diabetes mellitus without complications (CMS/HCC) Expected: 08/02/2024 (Approximate), Expires: 08/02/2025 [facility] Work Phone: Comment on above: Expected: 08/02/2024 (Approximate), Expires: 08/02/2025 Start: 07-23-2024 End: 07-23-2024 Patient encounter procedure 07/23/2024 9:00 AM EST Office Visit [facility] [address] [place] [id number] Renu Horvath PA [address] [place] [address] [facility] Start: 07-08-2024 End: 07-08-2024 Patient encounter procedure [facility] Comment on above: Arrived Start: 06-28-2024 End: 06-28-2025 CBC W Auto Differential panel - Blood CBC and differential Lab Routine Paroxysmal atrial fibrillation (CMS/HCC) Benign essential hypertension (CMS/HCC) Other fatigue Expected: 06/28/2024 (Approximate), Expires: 06/28/2025 [facility] Comment on above: Expected: 06/28/2024 (Approximate), Expires: 06/28/2025 Start: 06-28-2024 End: 06-28-2025 Comprehensive metabolic 2000 panel - Serum or Plasma Comprehensive metabolic panel Lab Routine Paroxysmal atrial fibrillation (CMS/HCC) Benign essential hypertension (CMS/HCC) Other fatigue Expected: 06/28/2024 (Approximate), Expires: 06/28/2025 [facility] Comment on above: Expected: 06/28/2024 (Approximate), Expires: 06/28/2025 Start: 06-28-2024 End: 06-28-2025 Lipid 1996 panel - Serum or Plasma Lipid panel Lab Routine Paroxysmal atrial fibrillation (CMS/HCC) Benign essential hypertension (CMS/HCC) Other fatigue Expected: 06/28/2024 (Approximate), Expires: 06/28/2025 [facility] Comment on above: Expected: 06/28/2024 (Approximate), Expires: 06/28/2025 Start: 06-28-2024 End: 06-28-2025 Testosterone, total and free Testosterone, total and free Lab Routine Paroxysmal atrial fibrillation (CMS/HCC) Other fatigue Erectile disorder Expected: 06/28/2024 (Approximate), Expires: 06/28/2025 [facility] Work Phone: Comment on above: Expected: 06/28/2024 (Approximate), Expires: 06/28/2025 Start: 06-28-2024 End: 06-28-2025 TSH W/REFLEX TO FT4 TSH W/REFLEX TO FT4 Lab Routine Paroxysmal atrial fibrillation (CMS/HCC) Benign essential hypertension (CMS/HCC) Other fatigue Expected: 06/28/2024 (Approximate), Expires: 06/28/2025 [facility] Comment on above: Expected: 06/28/2024 (Approximate), Expires: 06/28/2025 Start: 06-28-2024 End: 06-28-2024 Patient encounter procedure 06/28/2024 8:45 AM EST Office Visit [facility] [address] [facility] [address] [place] [address] Erin Owens MD [address] [facility] [address] [place] [address] [facility] Start: 06-10-2024 Medicare Annual Well ness Visit Medicare Annual Wellness Visit (AWV) [facility] Start: 06-09-2024 Medicare Annual Well ness (AWV) Medicare Annual Wellness (AWV) [facility] Start: 05-12-2024 Pneumococcal Vaccine : 65+ Years (1 of 2 - PCV) Pneumococcal Vaccine: 65+ Years (1 of 2 - PCV) [facility] Comment on above: Postponed from 07/31 (Patient Refused) Start: 04-04-2024 COVID-19 Vaccine ( season) COVID-19 Vaccine ( season) [facility] Start: 04-04-2024 Influenza vaccination [facility] Start: 06-03-2023 FUV, Provider: Fernando Nova, Status: Pen, Time: 8:40 AM FUV, Provider: Fernando Nova, Status: Pen, Time: 8:40 AM [facility] [employer] [address] DO Work Phone: Start: 04-04-2023 COVID-19 Vaccine ( season) COVID-19 Vaccine ( season) [facility] Start: 05-28-2022 FUV, Provider: Fernando Nova, Status: Pen, Time: 10:00 AM FUV, Provider: Fernando Nova, Status: Pen, Time: 10:00 AM [facility] [employer] 250 DO Work Phone: Start: 2020 Abdominal aortic aneurysm screening Abdominal Aortic Aneurysm (AAA) Screening [facility] Start: 2015 RSV High Risk: (Elde rly (60+) or Population) (1 - Risk 60-74 years 1-dose series) RSV High Risk: (Elderly (60+) or Population) (1 - Risk 60-74 years 1-dose series) [facility] Start: 2015 RSV patient s and/or patients aged 60+ years (1 - 1-dose 60+ series) RSV patients and/or patients aged 60+ years (1 - 1-dose 60+ series) [facility] Start: 2005 Prostate specific antigen measurement PSA Prostate Cancer Screening [facility] Start: 2005 Zoster Vaccines (1 of 2) Zoste r Vaccines (1 of 2) [facility] Start: 1977 DTaP/Tdap/Td Vaccine s (1 - Tdap) DTaP/Tdap/Td Vaccines (1 - Tdap) [facility] Start: 1974 Pneumococcal vaccination Pneum ococcal Vaccine (1 of 2 - PCV) [facility] Start: 1973 Diabetes mellitus screening Diabetes Screening [facility] Start: 1973 Hepatitis C screening Hepatitis C Sc reening [facility] Start: 12-28-1965 Glaucoma screening Diabetes: R etinopathy Screening [facility] Start: 1961 Pneumococcal Vaccine : 65+ Years (1 of 2 - PCV) Pneumococcal Vaccine: 65+ Years (1 of 2 - PCV) [facility] Start: 1956 MMR Vaccines (1 of 1 - Standard series) MMR Vaccines (1 of 1 - Standard series) [facility] Start: 1955 Lipid panel Lipid Panel [facility] Start: 1955 Medicare Annual Well ness Visit Medicare Annual Wellness Visit (AWV) [facility] Start: 1955 Screening for malign ant neoplasm of colon [facility] Patient Education Kidney Stone, Adult ED [facility] Work Phone: Patient referral [facility] Work Phone: Payers Date Payer Category Payer Self-pay 2021 Blue Cross Blue Shield [id number] 2021 Blue Cross Blue Shie ld Managed Care [id number]. 2021 Unknown 2020 Unknown [id number] 2020 Medicare [id number]. [id number] 2017 Unknown [id number] 1959 Medicare [id number] 1959 Unknown [id number] 1955 Unknown [id number] 2.16.840.1.775445.3.579.2. 594 1955 Unknown [id number] 2.16.840.1.910022.3.579.2. 594 1955 Unknown [id number] 2.16.840.1.912643.3.579.2. 594 1955 Unknown [id number] 2.16.840.1.938934.3.579.2. 594 1955 Unknown [id number] 2.16.840.1.180858.3.579.2. 594 1955 Unknown [id number] 2.16.840.1.586854.3.579.2. 594 1955 Unknown [id number] 2.16.840.1.696933.3.579.2. 594 1955 Unknown [id number] 2.16.840.1.793239.3.579.2. 594 1955 Unknown [id number] 2.16.840.1.747391.3.579.2. 356 1955 Unknown [id number] 2.16.840.1.554844.3.579.2. 356 1955 Unknown [id number] 2.16.840.1.883213.3.579.2. 593 1955 Unknown [id number] 2.16.840.1.028086.3.579.2. 593 1955 Unknown [id number] 2.16.840.1.096766.3.579.2. 593 1955 Unknown [id number] 2.16.840.1.096712.3.579.2. 593 1955 Unknown [id number] 2.16.840.1.922740.3.579.2. 593 1955 Unknown [id number] 2.16.840.1.722147.3.579.2. 593 1955 Unknown [id number] 2.16.840.1.757492.3.579.2. 593 1955 Unknown [id number] 2.16.840.1.509866.3.579.2. 593 1955 Unknown [id number] 2.16.840.1.885676.3.579.2. 593 1955 Unknown [id number] 2.16.840.1.851863.3.579.2. 727 1955 Unknown [id number] 2.16.840.1.396898.3.579.2. 727 1955 Unknown [id number] 2.16.840.1.890635.3.579.2. 727 1955 Unknown [id number] 2.16.840.1.285390.3.579.2. 727 1955 Unknown [id number] 2.16.840.1.889128.3.579.2. 727 1955 Unknown [id number] 2.16.840.1.033779.3.579.2. 1244 1955 Unknown [id number] 2.16.840.1.747887.3.579.2. 1244 1955 Unknown [id number] 2.16.840.1.323743.3.579.2. 1244 1955 Unknown [id number] 2.16.840.1.936779.3.579.2. 1259 1955 Unknown [id number] 2.16.840.1.594770.3.579.2. 1259 1955 Unknown [id number] 2.16.840.1.072293.3.579.2. 1259 1955 Unknown [id number] 2.16.840.1.739008.3.579.2. 1259 1955 Unknown [id number] 2.16.840.1.295286.3.579.2. 1259 1955 Unknown [id number] 2.16.840.1.716364.3.579.2. 1259 Private Health Insurance [facility] [employer] Company [id number] Unknown [employer] Benefit [id number] Unknown [id number] Unknown [id number] 2.16.840.1.073914.3.579.2. 531 Social History Date Type Detail Facility Start: 01-12-2024 End: 04-13-2025 Consumes alcohol occasionally Consumes alcohol occasionally [facility] Start: 04-13-2022 End: 12-04-2024 Tobacco smoking status NHIS Ex-smoker (finding) [facility] Start: 1955 Sex Assigned At Male [facility] Start: 01-12-2024 End: 04-13-2025 Sex Assigned At Male [facility] History of tobacco use Current smoker [place] Work Phone: Start: 08-04-1968 History of tobacco use Cigarette Smoker [facility] Work Phone: Start: 06-03-2023 End: 04-13-2025 Tobacco use and exposure Smokeless tobacco non-user [facility] Work Phone: Start: 01-12-2024 End: 04-13-2025 Alcoholic beverage intake Current drinker of alcohol (finding) [facility] Work Phone: Start: 1955 Sex assigned at Not on file [facility] Work Phone: Start: 01-02-2024 End: 08-31-2024 Exposure to SARS-CoV-2 (event) Not sure [facility] Start: 08-04-1968 End: 04-13-2025 Tobacco smoking status NHIS Occasional tobacco smoker [facility] History of tobacco use Cigar Smoker [facility] Within the last year , have you been afraid of your partner or ex-partner? No [facility] Start: 06-29-2022 In a typical week, how many times do you talk on the telephone with family, friends, or neighbors? Patient declined [facility] Do you belong to any clubs or organizations such as mosque groups, unions, fraternal or athletic groups, or school groups? Yes [facility] Are you now , , , , never or living with a partner? [facility] Do you feel stress - tense, restless, nervous, or anxious, or unable to sleep at night because your mind is troubled all the time - these days [OSQ] To some extent [facility] Start: 02-10-2023 Alcohol Comment Caffeine intake: 1-2 cups per day coffee [facility] Start: 12-04-2024 Sex Male (finding) [facility] How hard is it for y ou to pay for the very basics like food, housing, medical care, and heating Not very hard [facility] Do you feel stress - tense, restless, nervous, or anxious, or unable to sleep at night because your mind is troubled all the time - these days [OSQ] Only a little [facility] (I/We) worried wheth er (my/our) food would run out before (I/we) got money to buy more. Sometimes true [facility] The food that (I/we) bought just didn't last, and (I/we) didn't have money to get more. Never true [facility] Functional Status Date Assessment Result Facility 03-14-2025 Patient Health Quest ionnaire 2 item (PHQ-2) [Reported] [facility] 12-09-2024 Patient Health Quest ionnaire 2 item (PHQ-2) [Reported] [facility] 05-07-2022 Functional Status N/A [facility] 04-22-2022 Functional Status N/A [facility] Clinical Notes 10-17-2021 to 04-13-2025 Jyoti Tirado MD - 04/13/2025 9:20 AM EDTPatient InstructionsAttachCathy Owens MD - 03/14/2025 9:19 AM Roselyn Owens MD - 03/14/2025 9:18 AM Roselyn Owens MD - 03/14/2025 9:00 AM EDT Note Date & Type Note Facility 04-13-2025 History of Present illness Narrative HPI Patient is in the office for follow-up for paroxysmal atrial fibrillation treated with dofetilide and long-term anticoagulation with Pradaxa. The patient continued to have intermittent episode of atrial fibrillation with RVR on weekly basis requiring additional rate control agents. He has had previous ablations in [place] twice and the last one was 4 years ago. I suggested to the patient consideration for another ablation at [facility] but he will think about it. His weight is unchanged from previously he remains in class I obesity, his blood work was last done in June 2024 and he is due for blood work which is scheduled. His blood pressure is under control. EKG today confirmed normal sinus rhythm with normal intervals QTc interval 460 ms Assessment/recommendations: 1-paroxysmal atrial fibrillation on dofetilide and anticoagulation with Pradaxa with intermittent weekly breakthrough atrial fibrillation requiring additional rate control agents with metoprolol. The patient was offered consideration for the third ablation since he had 2 previous ablations in [place]. He will think about it. We will not increase his medications for the time being. 2-class I obesity, encouraged the patient to work harder to lose weight with activities and cutting back calorie consumption 3-essential hypertension, currently under control, he follows low-salt diet, encouraged weight loss and maintain active lifestyle, he has been compliant with medications. 4-obstructive sleep apnea utilizing mouthpiece which seems to work, more weight loss was recommended 5- high risk medication with dofetilide and anticoagulation to be monitored closely, there has been no bleeding complications, no new arrhythmias. Patient is due for lab data including CBC and basic metabolic profile and will check his magnesium level. 6-month follow-up will be scheduled ROS Intermittent palpitations Vitals: 04/13/25 0919 BP: 126/88 BP Location: Left arm Patient Position: Sitting Pulse: 92 Weight: 109 kg (240 lb) Height: 1.791 m (5' 10.5 ) EKG done in office today Objective Physical Exam Constitutional: Appearance: Normal appearance. HENT: Nose: Nose normal. Neck: Vascular: No carotid bruit. Cardiovascular: Rate and Rhythm: Normal rate. Pulses: Normal pulses. Heart sounds: Normal heart sounds. Pulmonary: Effort: Pulmonary effort is normal. Abdominal: General: Bowel sounds are normal. Palpations: Abdomen is soft. Musculoskeletal: General: Normal range of motion. Cervical back: Normal range of motion. Right lower leg: No edema. Left lower leg: No edema. Skin: General: Skin is warm and dry. Neurological: General: No focal deficit present. Mental Status: He is alert. Psychiatric: Mood and Affect: Mood normal. Behavior: Behavior normal. Thought Content: Thought content normal. Judgment: Judgment normal. Allergies Patient has no known allergies. Current Medications Current Outpatient Medications Medication Instructions ascorbic acid (Vitamin C) 500 mg tablet 1 tablet, Daily cholecalciferol (VITAMIN D3) 25 mcg, Daily dabigatran etexilate (PRADAXA) 150 mg, oral, 2 times daily, Eliquis is to be discontinued dilTIAZem CD (CARDIZEM CD) 180 mg, Daily dofetilide (TIKOSYN) 250 mcg, oral, Every 12 hours fluticasone (Flonase) 50 mcg/actuation nasal spray 2 sprays, As needed metoprolol succinate XL (TOPROL-XL) 50 mg, oral, Daily metoprolol tartrate (LOPRESSOR) 25 mg, As needed multivitamin tablet 1 tablet, Daily omega-3 fatty acids-fish oil (One-Per-Day [place]-3) 684-1,200 mg capsule 1 capsule, Daily tiZANidine (Zanaflex) 2 mg capsule 1-2 capsules, Nightly PRN valsartan (DIOVAN) 320 mg, oral, Daily Assessment/Plan 1. Paroxysmal atrial fibrillation (Multi) 2. High risk medication use 3. Anticoagulated 4. Essential hypertension, benign Follow Up In Cardiology 5. Sleep apnea, unspecified type 6. Obesity (BMI 30.0-34.9) 7. Never smoked tobacco Scribe Attestation By signing my name below, Gisell Salguero LPN , Scribe attest that this documentation has been prepared under the direction and in the presence of Jyoti Tirado MD. Provider Attestation - Scribe documentation All medical record entries made by the Scribe were at my direction and personally dictated by me. I have reviewed the chart and agree that the record accurately reflects my personal performance of the history, physical exam, discussion and plan. documented in this encounter [facility] Work Phone: 04-13-2025 Instructions Gisell Menard LPN - 04/13/2025 9:20 AM EDT Please bring all medicines, vitamins, and herbal supplements with you when you come to the office. Prescriptions will not be filled unless you are compliant with your follow up appointments or have a follow up appointment scheduled as per instruction of your physician. Refills should be requested at the time of your visit. BMI was above normal measurement. Current weight: 109 kg (240 lb) Weight change since last visit (-) denotes wt loss 8 lbs Weight loss needed to achieve BMI 25: 63.6 Lbs Weight loss needed to achieve BMI 30: 28.4 Lbs Provided instructions on dietary changes Provided instructions on exercise. Lab now and in 6 months Ablation discussed Same medications The following attachments cannot be sent through Care Everywhere.Quitting smoking (Malay)documented in this encounter [facility] Work Phone: 03-14-2025 History of Present illness Narrative Associated Problem(s): Paroxysmal atrial fibrillation (HCC) Patient is on appropriate medicines and is well controlled F/Up with cardiology as needed No evidence of bleeding Associated Problem(s): Elevated blood sugar A1c is down to 5.3 He is not exhibiting any symptoms of Diabetes Images from the original note were not included. Subjective Patient ID: Yannick Myaers is a 69 y.o. male who presents for No chief complaint on file.. Yannick presents today fora 6 month follow for his diabetes, His last A1c was 5.7. Sees cardiology Occasional episodes of afib 30 minutes to 12 hours Over the past 2 weeks, how often have you been bothered by any of the following problems? Little interest or pleasure in doing things: Not at all Feeling down, depressed, or hopeless: Not at all Patient Health Questionnaire-2 Score: 0 Current Outpatient Medications on File Prior to Visit Medication Sig Dispense Refill acyclovir (Zovirax) 200 MG capsule Take 200 mg by mouth in the morning and 200 mg before bedtime. PRN. albuterol HFA (ProAir HFA) 90 mcg/act inhaler Inhale 2 puffs every 6 (six) hours if needed for shortness of breath or wheezing. ascorbic acid (Vitamin C) 500 MG tablet Take 500 mg by mouth in the morning. atorvastatin (Lipitor) 20 MG tablet TAKE 1 TABLET BY MOUTH EVERY DAY (Patient not taking: Reported on 12/09/2024) 100 tablet 1 cholecalciferol (Vitamin D-3) 25 MCG (1000 UT) tablet Take 1,000 Units by mouth in the morning. dabigatran etexilate (Pradaxa) 150 MG capsule Take 150 mg by mouth in the morning and 150 mg in the evening. dilTIAZem CD (Cardizem CD) 180 MG 24 hr capsule Take 1 capsule by mouth in the morning. Patient takes as needed for episodes of A. fib. dofetilide (Tikosyn) 250 MCG capsule Take 1 capsule by mouth in the morning and 1 capsule before bedtime. fluticasone (Flonase) 50 MCG/ACT nasal spray Administer 2 sprays into each nostril Daily Shake gently. Before first use, prime pump. After use, clean tip and replace cap. PRN ibuprofen 200 MG tablet Take 200 mg by mouth every 6 (six) hours if needed. Multiple Vitamin (multivitamin) tablet Take 1 tablet by mouth in the morning. omega-3 (fish oil) 1200 MG capsule Take 1,200 mg by mouth in the morning. sildenafil (Viagra) 100 MG tablet Take 1 tablet (100 mg) by mouth Daily as needed for erectile dysfunction 10 tablet 0 tiZANidine (Zanaflex) 2 MG capsule TAKE 1-2 CAPSULES BY MOUTH EVERYDAY AT BEDTIME NEEDED FOR MUSCLE SPASMS 180 capsule 1 valsartan (Diovan) 320 MG tablet Take 320 mg by mouth in the morning. [DISCONTINUED] doxycycline (Vibramycin) 100 MG capsule Take 100 mg by mouth in the morning and 100 mg before bedtime. No current facility-administered medications on file prior to visit. I have reviewed and reconciled the history and medication list with the patient today. Allergies Allergen Reactions Erythromycin Erythromycin Base rash Social History Tobacco Use Smoking status: Some Days Types: Cigars Smokeless tobacco: Never Vaping Use Vaping status: Never Used Substance Use Topics Alcohol use: Yes Alcohol/week: 21.0 standard drinks of alcohol Types: 12 Cans of beer, 9 Shots of liquor per week Comment: Caffeine intake: 1-2 cups per day coffee Drug use: Never Family History Problem Relation Name Age of Onset Cancer Mother MAEFRANNIE YARITZA Aneurysm Mother SHREE YARITZA Esophageal cancer Father Cancer Brother P yaritza Cancer Maternal Grandmother Rafael Cancer Maternal Grandfather NIRALI GERTEN No Known Problems Paternal Grandmother No Known Problems Paternal Grandfather Melanoma Neg Hx Past Medical History: Diagnosis Date Allergic rhinitis Arthritis Asthma (HCC) Atrial fibrillation (HCC) COVID-19 Gastroesophageal reflux disease without esophagitis 02/11/2023 Hiatal hernia w/ severe reflux High risk medication use 03/06/2017 Last Assessment & Plan: Arrived in SR for initiation of Tikosyn at 500 mg every 12 hours. Baseline in SR 390/424 ms. Prolonged to 512/512 after second dose Dose decreased to 250 mcg. accounting office manager notified, she will call his pharmacy to correct dose Serial EKGs to assess QT/QTc. Electrolyte replacement as necessary. Continuous telemetry History of nephrolithiasis 02/11/2023 Hyperlipidemia Hypertension Irregular heart rate 05/12/2023 Kidney stones Left ventricular systolic dysfunction 02/11/2023 Localized osteoarthritis of right shoulder 02/11/2023 Low back pain without sciatica 02/11/2023 Mitral valve regurgitation 02/11/2023 Mixed hyperlipidemia 02/11/2023 Obesity (BMI 30.0-34.9) 03/05/2017 Last Assessment & Plan: Patient physically active in hospital, frequently ambulating Recommend cardiac diet OLIVER (obstructive sleep apnea) 01/10/2016 PAF (paroxysmal atrial fibrillation) (HCC) 12/26/2016 Added automatically from request for surgery [id number] Last Assessment & Plan: S/P AF ablation x 2. LINQ in place. Tikosyn load. Continue Eliquis. 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 Respiratory: Negative for chest tightness. Cardiovascular: Negative for chest pain. Gastrointestinal: Negative for blood in stool. Genitourinary: Negative for dysuria, enuresis and frequency. Neurological: Negative for dizziness, tremors, syncope, facial asymmetry and numbness. Objective Physical Exam Vitals reviewed. Constitutional: Appearance: Normal appearance. HENT: Head: Normocephalic. Neck: Vascular: No carotid bruit. Cardiovascular: Rate and Rhythm: Normal rate. Rhythm irregular. Pulses: Normal pulses. Pulmonary: Effort: Pulmonary effort is normal. Breath sounds: Normal breath sounds. Neurological: General: No focal deficit present. Mental Status: He is alert and oriented to person, place, and time. Psychiatric: Mood and Affect: Mood normal. Office Visit on 03/14/2025 Component Date Value Ref Range Status Hemoglobin A1C 03/14/2025 5.2 Final Assessment/Plan Problem List Items Addressed This Visit Paroxysmal atrial fibrillation (HCC) Patient is on appropriate medicines and is well controlled F/Up with cardiology as needed No evidence of bleeding Elevated blood sugar - Primary A1c is down to 5.3 He is not exhibiting any symptoms of Diabetes Relevant Orders POCT glycosylated hemoglobin (Hb A1C) docked device (Completed) Follow up in about 6 months (around 09/14/2025). documented in this encounter [facility] 02-01-2025 History of Present illness Narrative Pt came to get a steroid inj for his allergy given in left buttocks admin by mariah perry documented in this encounter [facility] 12-09-2024 History of Present illness Narrative Images from the original note were not included. HPI Med Refill Additional comments: tizanidine Last edited by Brianna Mccullough LPN on 12/09/2024 9:42 AM. Subjective Patient ID: Yannick Mayers is a 69 y.o. male who presents for urgent care follow up. Yannick is present today for follow up urgent care. On November 26 he stepped on the bottom of bucket and the bottom busted out of the bucket and he banged his lower left leg on it. The skin was never broke open though. He was seen at urgent care on 12/04/24 Dx. Cellulitis left lower limb, Rx'd Doxycycline 100 mg BID for 7 days. It is improving but is still sore to the touch, red, and swollen. Het does c/o of tenderness when he presses on the top of his left foot though. When he goes into atrial fibrillation he takes an extra Tikosyn. Current Outpatient Medications on File Prior to Visit Medication Sig Dispense Refill dabigatran etexilate (Pradaxa) 150 MG capsule Take 150 mg by mouth in the morning and 150 mg in the evening. doxycycline (Vibramycin) 100 MG capsule Take 100 mg by mouth in the morning and 100 mg before bedtime. valsartan (Diovan) 320 MG tablet Take 320 mg by mouth in the morning. [DISCONTINUED] metoprolol tartrate (Lopressor) 25 MG tablet Take 25 mg by mouth Daily as needed (Atrial Fibrillation) acyclovir (Zovirax) 200 MG capsule Take 200 mg by mouth in the morning and 200 mg before bedtime. PRN. albuterol HFA (ProAir HFA) 90 mcg/act inhaler Inhale 2 puffs every 6 (six) hours if needed for shortness of breath or wheezing. ascorbic acid (Vitamin C) 500 MG tablet Take 500 mg by mouth in the morning. atorvastatin (Lipitor) 20 MG tablet TAKE 1 TABLET BY MOUTH EVERY DAY (Patient not taking: Reported on 12/09/2024) 100 tablet 1 cholecalciferol (Vitamin D-3) 25 MCG (1000 UT) tablet Take 1,000 Units by mouth in the morning. dilTIAZem CD (Cardizem CD) 180 MG 24 hr capsule Take 1 capsule by mouth in the morning. Patient takes as needed for episodes of A. fib. dofetilide (Tikosyn) 250 MCG capsule Take 1 capsule by mouth in the morning and 1 capsule before bedtime. fluticasone (Flonase) 50 MCG/ACT nasal spray Administer 2 sprays into each nostril Daily Shake gently. Before first use, prime pump. After use, clean tip and replace cap. PRN ibuprofen 200 MG tablet Take 200 mg by mouth every 6 (six) hours if needed. Multiple Vitamin (multivitamin) tablet Take 1 tablet by mouth in the morning. omega-3 (fish oil) 1200 MG capsule Take 1,200 mg by mouth in the morning. sildenafil (Viagra) 100 MG tablet Take 1 tablet (100 mg) by mouth Daily as needed for erectile dysfunction 10 tablet 0 [DISCONTINUED] apixaban (Eliquis) 5 MG tablet Take 1 tablet (5 mg) by mouth in the morning and 1 tablet (5 mg) before bedtime. 200 tablet 3 [DISCONTINUED] hydroCHLOROthiazide (HYDRODiuril) 25 MG tablet Take 1 tablet (25 mg) by mouth Daily (Patient not taking: Reported on 12/09/2024) 90 tablet 3 [DISCONTINUED] KLOR-CON 20 MEQ ER tablet Take 20 mEq by mouth in the morning and 20 mEq before bedtime. (Patient not taking: Reported on 12/09/2024) [DISCONTINUED] Krill Oil ([place]-3) 500 MG capsule Take 500 mg by mouth in the morning. [DISCONTINUED] metoprolol succinate XL (Toprol-XL) 50 MG 24 hr tablet Take 50 mg by mouth Daily [DISCONTINUED] tiZANidine (Zanaflex) 2 MG capsule TAKE 1 TO 2 CAPSULES BY MOUTH AT BEDTIME NEEDED FOR BACK PAIN 60 capsule 0 No current facility-administered medications on file prior to visit. I have reviewed and reconciled the history and medication list with the patient today. Allergies Allergen Reactions Erythromycin Erythromycin Base rash Social History Tobacco Use Smoking status: Some Days Types: Cigars Smokeless tobacco: Never Vaping Use Vaping status: Never Used Substance Use Topics Alcohol use: Yes Alcohol/week: 21.0 standard drinks of alcohol Types: 12 Cans of beer, 9 Shots of liquor per week Comment: Caffeine intake: 1-2 cups per day coffee Drug use: Never Family History Problem Relation Name Age of Onset Cancer Mother SHREE YARITZA Aneurysm Mother SHREE YARITZA Esophageal cancer Father Cancer Brother P yaritza Cancer Maternal Grandmother Rafael Cancer Maternal Grandfather NIRALI GERTEN No Known Problems Paternal Grandmother No Known Problems Paternal Grandfather Melanoma Neg Hx Past Medical History: Diagnosis Date Allergic rhinitis Arthritis Asthma Atrial fibrillation ([facility]/HCC) COVID-19 Gastroesophageal reflux disease without esophagitis 02/11/2023 Hiatal hernia w/ severe reflux High risk medication use 03/06/2017 Last Assessment & Plan: Arrived in SR for initiation of Tikosyn at 500 mg every 12 hours. Baseline in SR 390/424 ms. Prolonged to 512/512 after second dose Dose decreased to 250 mcg. accounting office manager notified, she will call his pharmacy to correct dose Serial EKGs to assess QT/QTc. Electrolyte replacement as necessary. Continuous telemetry History of nephrolithiasis 02/11/2023 Hyperlipidemia ([facility]/HCC) Hypertension ([facility]) Irregular heart rate 05/12/2023 Kidney stones Left ventricular systolic dysfunction 02/11/2023 Localized osteoarthritis of right shoulder 02/11/2023 Low back pain without sciatica 02/11/2023 Mitral valve regurgitation 02/11/2023 Mixed hyperlipidemia ([facility]/HCC) 02/11/2023 Obesity (BMI 30.0-34.9) 03/05/2017 Last Assessment & Plan: Patient physically active in hospital, frequently ambulating Recommend cardiac diet OLIVER (obstructive sleep apnea) 01/10/2016 PAF (paroxysmal atrial fibrillation) ([facility]/HCC) 12/26/2016 Added automatically from request for surgery [id number] Last Assessment & Plan: S/P AF ablation x 2. LINQ in place. Tikosyn load. Continue Eliquis. CHADS VASC - [address] Alexa Gay's disease 05/31/2020 Primary hypertension (CMS/HCC) 02/11/2023 S/P ablation of atrial fibrillation 01/10/2016 Seasonal allergies 02/11/2023 Past Surgical History: Procedure Laterality Date CARDIAC SURGERY 01/2016 ablation of abnormal pacemaker CARPAL TUNNEL RELEASE Right 07/2005 CHOLECYSTECTOMY ELBOW SURGERY Right Arthroscopy JOINT REPLACEMENT Left 10/19/2012 knee LITHOTRIPSY Visit Vitals BP 132/74 Pulse 104 Resp 16 Ht 5' 10 Wt 234 lb 3.2 oz SpO2 94% BMI 33.60 kg/m Smoking Status Some Days BSA 2.29 m Review of Systems Constitutional: Negative for chills, fatigue and fever. Respiratory: Negative for cough, shortness of breath and wheezing. Cardiovascular: Negative for chest pain, palpitations and leg swelling. Gastrointestinal: Negative for abdominal pain, constipation, diarrhea, nausea and vomiting. Musculoskeletal: Positive for arthralgias and joint swelling. Skin: Negative for rash. Mild redness left lower leg Objective Physical Exam Constitutional: General: He is not in acute distress. Appearance: Normal appearance. HENT: Head: Normocephalic and atraumatic. Eyes: General: No scleral icterus. Cardiovascular: Rate and Rhythm: Tachycardia present. Rhythm irregularly irregular. Pulses: Dorsalis pedis pulses are 2+ on the left side. Heart sounds: No murmur heard. Pulmonary: Effort: Pulmonary effort is normal. No respiratory distress. Breath sounds: Normal breath sounds. No wheezing, rhonchi or rales. Musculoskeletal: General: Swelling present. Left lower leg: Tenderness (Anterior) present. Edema present. Legs: Comments: Small area of confluent erythema, mild. No increased warmth to touch. Tender over that area. Also tender over mid foot in are noted in drawing. Mild resolving ecchymosis of foot. Skin: General: Skin is warm and dry. Neurological: General: No focal deficit present. Mental Status: He is alert and oriented to person, place, and time. Sensory: Sensory deficit present. Gait: Gait abnormal (Mildly antalgic). Comments: Numbness over left 5th toe and distal lateral aspect of foot, chronic in nature per pt since knee replacement. Psychiatric: Mood and Affect: Mood normal. Behavior: Behavior normal. Assessment/Plan Diagnoses and all orders for this visit: Left foot pain - XR foot 3+ views left; Future Due to persistent pain, will obtain x-rays for further evaluation at this time. Will notify pt of the results once received. He will have these done at [facility] today. Pain and swelling of left lower leg - XR tibia fibula 2 views left; Future Due to persistent pain, will obtain x-rays for further evaluation at this time. Will notify pt of the results once received. He will have these done at [facility] today. Area of erythema really did not improve with the antibiotic. Appears to be a skin reaction, more related to the injury. Chronic bilateral low back pain without sciatica - tiZANidine (Zanaflex) 2 MG capsule; Take 1-2 capsules (2-4 mg) by mouth as needed at bedtime for muscle spasms Refill provided on the above. He can continue to take it as needed. Paroxysmal atrial fibrillation (CMS/HCC) Patient states that he takes an extra dosage of Tikosyn when he goes into A fib. Advised pt to contact Cardiology today to let them know that he is back in A fib. Continue Pradaxa as prescribed by Cardiology. The patient was seen today in follow up of recent Urgent Care visit. All available hospital records were reviewed and discussed with the patient. Discharge meds were reviewed. Any changes to plan are as noted. Follow up for Appointment As Scheduled. documented in this encounter [facility] 09-01-2024 History of Present illness Narrative Subjective Yannick Mayers is a 69 y.o. male Chief Complaint Follow-up HPI Patient is in the office for follow-up for hypertension management and follow-up EKG. 2 weeks ago we stopped hydrochlorothiazide due to the presence of dofetilide. Cardizem was switched to amlodipine which came in combination with valsartan in the form of Exforge. His pressure is normal but had breakthrough atrial fibrillation. He prized Pradaxa generic form and the johnson is convenient and he will be switched from Eliquis. Advised patient to go back on Cardizem CD 180 mg daily, continue dofetilide as it is and stay away from hydrochlorothiazide with no need for potassium supplements. ECG revealed normal sinus rhythm, QTc interval 486 ms Review of Systems All other systems reviewed and are negative. Vitals: 09/01/24 0942 09/01/24 0943 BP: 124/76 112/68 BP Location: Left arm Right arm Patient Position: Sitting Sitting Pulse: 79 Weight: 105 kg (232 lb) Height: 1.791 m (5' 10.5 ) Objective Physical Exam Constitutional: Appearance: Normal appearance. HENT: Nose: Nose normal. Neck: Vascular: No carotid bruit. Cardiovascular: Rate and Rhythm: Normal rate. Pulses: Normal pulses. Heart sounds: Normal heart sounds. Pulmonary: Effort: Pulmonary effort is normal. Abdominal: General: Bowel sounds are normal. Palpations: Abdomen is soft. Musculoskeletal: General: Normal range of motion. Cervical back: Normal range of motion. Right lower leg: No edema. Left lower leg: No edema. Skin: General: Skin is warm and dry. Neurological: General: No focal deficit present. Mental Status: He is alert. Psychiatric: Mood and Affect: Mood normal. Behavior: Behavior normal. Thought Content: Thought content normal. Judgment: Judgment normal. Allergies Patient has no known allergies. Current Medications Current Outpatient Medications: amlodipine-valsartan (Exforge) 5-160 mg tablet, Take 1 tablet by mouth once daily., Disp: 90 tablet, Rfl: 3 ascorbic acid (Vitamin C) 500 mg tablet, Take 1 tablet (500 mg) by mouth once daily., Disp: , Rfl: cholecalciferol (Vitamin D-3) 50,000 unit capsule, Take 1 capsule (50,000 Units) by mouth once daily., Disp: , Rfl: dilTIAZem CD (Cardizem CD) 180 mg 24 hr capsule, Take 1 capsule (180 mg) by mouth once daily., Disp: , Rfl: dofetilide (Tikosyn) 250 mcg capsule, Take 1 capsule (250 mcg) by mouth 2 times a day., Disp: 180 capsule, Rfl: 3 fluticasone (Flonase) 50 mcg/actuation nasal spray, Administer 2 sprays into each nostril if needed., Disp: , Rfl: metoprolol succinate XL (Toprol-XL) 50 mg 24 hr tablet, Take 1 tablet (50 mg) by mouth once daily., Disp: 90 tablet, Rfl: 3 metoprolol tartrate (Lopressor) 25 mg tablet, Take 1 tablet (25 mg) by mouth if needed. For break thru a fib, Disp: , Rfl: multivitamin tablet, Take 1 tablet by mouth once daily., Disp: , Rfl: omega-3 fatty acids-fish oil (One-Per-Day [place]-3) 684-1,200 mg capsule, Take 1 capsule (1,200 mg) by mouth once daily., Disp: , Rfl: tiZANidine (Zanaflex) 2 mg capsule, Take 1-2 capsules (2-4 mg) by mouth as needed at bedtime for muscle spasms., Disp: , Rfl: zinc gluconate 50 mg tablet, Take 1 tablet (50 mg) by mouth once daily., Disp: , Rfl: dabigatran etexilate (Pradaxa) 150 mg capsule, Take 1 capsule (150 mg) by mouth 2 times a day. Do not crush or chew., Disp: 180 capsule, Rfl: 3 Assessment/Plan 1. Paroxysmal atrial fibrillation (Multi) ECG 12 Lead dabigatran etexilate (Pradaxa) 150 mg capsule 2. High risk medication use 3. Anticoagulated 4. Essential hypertension, benign 5. Sleep apnea, unspecified type 6. Never smoked tobacco 7. Obesity (BMI 30.0-34.9) Scribe Attestation By signing my name below, Gisell Salguero LPN, Scribe attest that this documentation has been prepared under the direction and in the presence of Jyoti Tirado MD. Provider Attestation - Scribe documentation All medical record entries made by the Scribe were at my direction and personally dictated by me. I have reviewed the chart and agree that the record accurately reflects my personal performance of the history, physical exam, discussion and plan. documented in this encounter [facility] Work Phone: 09-01-2024 Instructions Gisell Menard LPN - 09/01/2024 9:30 AM EST Please bring all medicines, vitamins, and herbal supplements with you when you come to the office. Prescriptions will not be filled unless you are compliant with your follow up appointments or have a follow up appointment scheduled as per instruction of your physician. Refills should be requested at the time of your visit. Resume Cardizem CD 180 daily Stop Eliquis. Start Pradaxa 150 mg one tablet two times daily Follow up sept documented in this encounter [facility] Work Phone: 08-17-2024 History of Present illness Narrative Subjective Yannick Mayers is a 69 y.o. male Chief Complaint Follow-up HPI 69-year-old white male who has previously followed with Dr. Nova, he has paroxysmal atrial fibrillation, hypertension and obstructive sleep apnea. He has intermittent breakthrough atrial fibrillation while he is taking medications. He has 2 drinks alcohol daily. He has hypertension which has not been under control based on today's reading. His combination of therapy for hypertension is not favored since he is on hydrochlorothiazide in the context of dofetilide. He has been anticoagulated with Eliquis with no bleeding complications. The cost of Eliquis seem to be prohibitive after changes in his insurance. EKG today revealed normal sinus rhythm heart rate 90 bpm QTc interval was 489 ms which is prolonged. Last potassium check was 4.1 mmol/L few weeks ago. His weight places him in this class II obesity. Weight loss was advocated. He is compliant with a mouthpiece for sleep apnea which seems to be helping. He had normal treadmill stress test and echocardiogram in 2021. He has no known coronary artery disease or vascular disease, he is non-smoker. Assessment/recommendations: 1-paroxysmal atrial fibrillation on dofetilide and anticoagulation with Eliquis. Due to increasing cost of Eliquis with suggested switching to dabigatran 150 mg twice daily. We talked about the option of Coumadin as well. Patient was prescribed Toprol tartrate 25 mg to be used as needed for breakthrough atrial fibrillation 2-prolonged QT interval. The patient was advised to stop taking hydrochlorothiazide and repeat EKG in 2 weeks 3-essential hypertension, currently uncontrolled. Will discontinue hydrochlorothiazide and diltiazem along with potassium chloride and replace that with Exforge 5/160 mg daily. If necessary this could be uptitrated. BP check in 2 weeks will be scheduled 4-obstructive sleep apnea utilizing mouthpiece which seems to work, more weight loss was recommended 5-class I obesity, lifestyle modification to lose weight was discussed with the patient 6-elevated transaminase, advised patient to cut back on alcohol consumption 7-high risk medication with dofetilide and anticoagulation to be monitored closely Review of Systems All other systems reviewed and are negative. Vitals: 08/17/24 0920 BP: 150/90 BP Location: Right arm Patient Position: Sitting Pulse: 90 Weight: 106 kg (233 lb 12.8 oz) Height: 1.791 m (5' 10.5 ) EKG done in office today Objective Physical Exam Constitutional: Appearance: Normal appearance. HENT: Nose: Nose normal. Neck: Vascular: No carotid bruit. Cardiovascular: Rate and Rhythm: Normal rate. Pulses: Normal pulses. Heart sounds: Normal heart sounds. Pulmonary: Effort: Pulmonary effort is normal. Abdominal: General: Bowel sounds are normal. Palpations: Abdomen is soft. Musculoskeletal: General: Normal range of motion. Cervical back: Normal range of motion. Right lower leg: No edema. Left lower leg: No edema. Skin: General: Skin is warm and dry. Neurological: General: No focal deficit present. Mental Status: He is alert. Psychiatric: Mood and Affect: Mood normal. Behavior: Behavior normal. Thought Content: Thought content normal. Judgment: Judgment normal. Allergies Patient has no known allergies. Current Medications Current Outpatient Medications: apixaban (Eliquis) 5 mg tablet, Take 1 tablet (5 mg) by mouth 2 times a day., Disp: 180 tablet, Rfl: 3 ascorbic acid (Vitamin C) 500 mg tablet, Take 1 tablet (500 mg) by mouth once daily., Disp: , Rfl: cholecalciferol (Vitamin D-3) 50,000 unit capsule, Take 1 capsule (50,000 Units) by mouth once daily., Disp: , Rfl: dofetilide (Tikosyn) 250 mcg capsule, Take 1 capsule (250 mcg) by mouth 2 times a day., Disp: 180 capsule, Rfl: 3 fluticasone (Flonase) 50 mcg/actuation nasal spray, Administer 2 sprays into each nostril if needed., Disp: , Rfl: metoprolol succinate XL (Toprol-XL) 50 mg 24 hr tablet, Take 1 tablet (50 mg) by mouth once daily., Disp: 90 tablet, Rfl: 3 multivitamin tablet, Take 1 tablet by mouth once daily., Disp: , Rfl: omega-3 fatty acids-fish oil (One-Per-Day [place]-3) 684-1,200 mg capsule, Take 1 capsule (1,200 mg) by mouth once daily., Disp: , Rfl: tiZANidine (Zanaflex) 2 mg capsule, Take 1-2 capsules (2-4 mg) by mouth as needed at bedtime for muscle spasms., Disp: , Rfl: zinc gluconate 50 mg tablet, Take 1 tablet (50 mg) by mouth once daily., Disp: , Rfl: amlodipine-valsartan (Exforge) 5-160 mg tablet, Take 1 tablet by mouth once daily., Disp: 90 tablet, Rfl: 3 metoprolol tartrate (Lopressor) 25 mg tablet, Take one tablet as needed for break through a fib, may take an additional tablet if needed one hr later, Disp: 25 tablet, Rfl: 2 Assessment/Plan 1. Paroxysmal atrial fibrillation (Multi) Follow Up In Cardiology ECG 12 Lead metoprolol tartrate (Lopressor) 25 mg tablet Follow Up In Cardiology 2. Essential hypertension, benign Follow Up In Cardiology amlodipine-valsartan (Exforge) 5-160 mg tablet Follow Up In Cardiology 3. Prolonged Q-T interval on ECG 4. Anticoagulated 5. High risk medication use 6. Obstructive sleep apnea syndrome 7. Obesity (BMI 30.0-34.9) 8. Never smoked tobacco 9. Elevated transaminase level Scribe Attestation By signing my name below, Gisell Salguero LPN, Scribe attest that this documentation has been prepared under the direction and in the presence of Jyoti Tirado MD. Provider Attestation - Scribe documentation All medical record entries made by the Scribe were at my direction and personally dictated by me. I have reviewed the chart and agree that the record accurately reflects my personal performance of the history, physical exam, discussion and plan. documented in this encounter [facility] Work Phone: 08-17-2024 Instructions Gisell Menard LPN - 08/17/2024 9:20 AM EST Please bring all medicines, vitamins, and herbal supplements with you when you come to the office. Prescriptions will not be filled unless you are compliant with your follow up appointments or have a follow up appointment scheduled as per instruction of your physician. Refills should be requested at the time of your visit. BMI was above normal measurement. Current weight: 106 kg (233 lb 12.8 oz) Weight change since last visit (-) denotes wt loss 3.8 lbs Weight loss needed to achieve BMI 25: 57.4 Lbs Weight loss needed to achieve BMI 30: 22.2 Lbs Provided instructions on dietary changes Provided instructions on exercise. Stop Hydrochlorothiazide Stop Cardizem CD Stop potassium Exforge 5/160 mg daily Metoprolol tart 25 mg one tablet as needed Johnson Pradaxa 150 mg one tablet 2 times daily EKG 2 weeks with b/p check documented in this encounter [facility] Work Phone: 08-02-2024 History of Present illness Narrative Associated Problem(s): History of nephrolithiasis Increase fluids Associated Problem(s): Medicare annual wellness visit, subsequent Colonoscopy every 10 years or Cologuard every 3 years ages 50-75 Flu Vaccine yearly Pneumovax and Prevnar Mammo yearly for women and PSA yearly for men Labs/Screening yearly to rule out Diabetes, Chronic Kidney disease and liver disease Hepatitis Screen forat risk populations Shingles vaccine after 65 if indicated Tetanus Vaccine every 10 years Lipids yearly under the age of 75 If Smoking history: one time CT scan of chest and Ultrasound of Aorta to screen for Anuerysm Associated Problem(s): Mixed hyperlipidemia (CMS/HCC) This is a chronic medical condition that is stable since last assessment. No changes in treatment are suggested at this time. Continue Current meds. Associated Problem(s): Paroxysmal atrial fibrillation (CMS/HCC) Patient is on Eliquis, Diltiazem. Metoprolol and Tikosyn Images from the original note were not included. Subjective : Chief Complaint: Yannick Mayers is an 69 y.o. male here for an annual wellness visit. I have reviewed and reconciled the history and medication list with the patient today. Current Outpatient Medications Medication Sig Dispense Refill acyclovir (Zovirax) 200 MG capsule Take 200 mg by mouth in the morning and 200 mg before bedtime. PRN. albuterol HFA (ProAir HFA) 90 mcg/act inhaler Inhale 2 puffs every 6 (six) hours if needed for shortness of breath or wheezing. apixaban (Eliquis) 5 MG tablet Take 1 tablet (5 mg) by mouth in the morning and 1 tablet (5 mg) before bedtime. 200 tablet 3 ascorbic acid (Vitamin C) 500 MG tablet Take 500 mg by mouth in the morning. atorvastatin (Lipitor) 20 MG tablet Take 1 tablet (20 mg) by mouth Daily 30 tablet 2 cholecalciferol (Vitamin D-3) 25 MCG (1000 UT) tablet Take 1,000 Units by mouth in the morning. dilTIAZem CD (Cardizem CD) 180 MG 24 hr capsule Take 1 capsule by mouth in the morning. Patient takes as needed for episodes of A. fib. dofetilide (Tikosyn) 250 MCG capsule Take 1 capsule by mouth in the morning and 1 capsule before bedtime. fluticasone (Flonase) 50 MCG/ACT nasal spray Administer 2 sprays into each nostril Daily Shake gently. Before first use, prime pump. After use, clean tip and replace cap. PRN hydroCHLOROthiazide (HYDRODiuril) 25 MG tablet Take 1 tablet (25 mg) by mouth Daily 90 tablet 3 ibuprofen 200 MG tablet Take 200 mg by mouth every 6 (six) hours if needed. KLOR-CON 20 MEQ ER tablet Take 20 mEq by mouth in the morning and 20 mEq before bedtime. Krill Oil ([place]-3) 500 MG capsule Take 500 mg by mouth in the morning. metoprolol succinate XL (Toprol-XL) 50 MG 24 hr tablet Take 50 mg by mouth Daily Multiple Vitamin (multivitamin) tablet Take 1 tablet by mouth in the morning. omega-3 (fish oil) 1200 MG capsule Take 1,200 mg by mouth in the morning. sildenafil (Viagra) 100 MG tablet Take 1 tablet (100 mg) by mouth Daily as needed for erectile dysfunction 10 tablet 0 tiZANidine (Zanaflex) 2 MG capsule TAKE 1 TO 2 CAPSULES BY MOUTH AT BEDTIME NEEDED FOR BACK PAIN 60 capsule 0 No current facility-administered medications for this visit. Review of Systems Constitutional: Negative for chills, fatigue, fever and unexpected weight change. HENT: Negative for postnasal drip and rhinorrhea. Respiratory: Negative for cough and shortness of breath. Cardiovascular: Negative for chest pain. Gastrointestinal: Negative for abdominal pain, blood in stool, constipation, diarrhea, nausea and vomiting. Genitourinary: Negative for dysuria, enuresis, frequency and hematuria. Musculoskeletal: Negative for back pain and gait problem. Neurological: Negative. Negative for dizziness, tremors, syncope, facial asymmetry and speech difficulty. Psychiatric/Behavioral: Negative for agitation, behavioral problems, confusion and dysphoric mood. The patient is not nervous/anxious. List of current healthcare providers: Patient Care Team: Erin Owens MD as PCP - General (Family Medicine) Medicare Annual Visit Over the past 2 weeks, how often have you been bothered by any of the following problems? Little interest or pleasure in doing things: Not at all Feeling down, depressed, or hopeless: Not at all Patient Health Questionnaire-2 Score: 0 Roberto Fall Risk History of Falling, Immediate or Within 3 Months: No Health Risk Assessment Form Do you need help eating, bathing, using the toilet, dressing, or getting around your home?: No Can you prepare your own meals?: Yes Can you do your own housework without help?: Yes Can you shop for groceries or clothes without help?: Yes Do you exercise for about 20 minutes 3 or more days a week?: Yes How confident are you that you can control and manage most of your health problems?: Very confident Can you mange your money, credit cards and accounts, pay bills and taxes?: Yes Vision Screening: Yes, no gross abnormalities Hearing Screening: Yes, no gross abnormalities Cognitive Screening Self Assessment: No overt cognitive deficiency is apparent by direct observation Three Word Registration: Banana, [place], Chair Clock Drawing: Normal Clock - 2 Three Word Recall: All 3 words correct - 3 Total Score (0-5 Points): 5 Pain Assessment Pain Score: 0 - No pain Advance Care Planning Do you have a living will?: Yes Do you have a medical power of mergers and acquisitions attorney?: Yes Objective : BP 138/88 Pulse 87 Ht 5' 10 Wt 242 lb SpO2 98% BMI 34.72 kg/m No results found. Physical Exam Vitals reviewed. Constitutional: Appearance: Normal appearance. HENT: Head: Normocephalic. Neck: Vascular: No carotid bruit. Cardiovascular: Rate and Rhythm: Normal rate and regular rhythm. Pulses: Normal pulses. Pulmonary: Effort: Pulmonary effort is normal. Breath sounds: Normal breath sounds. Neurological: General: No focal deficit present. Mental Status: He is alert and oriented to person, place, and time. Psychiatric: Mood and Affect: Mood normal. Office Visit on 08/02/2024 Component Date Value Ref Range Status Hemoglobin A1C 08/02/2024 5.7 Final Assessment/Plan : The following health maintenance schedule was reviewed with the patient and provided in printed form in the after visit summary: Health Maintenance Topic Date Due Medicare Annual Wellness (AWV) 06/09/2024 Influenza Vaccine (1) 08/18/2024 (Originally 04/04/2024) Pneumococcal Vaccine: 65+ Years (1 of 2 - PCV) 06/23/2025 (Originally 1961) Colorectal Cancer Screening 06/13/2026 Advance Care Planning Patient willing to discuss ACP. If in place, renew periodically. If not in place, recommend obtaining ACP. Assessment/Plan Problem List Items Addressed This Visit Mixed hyperlipidemia (CMS/HCC) This is a chronic medical condition that is stable since last assessment. No changes in treatment are suggested at this time. Continue Current meds. Relevant Medications atorvastatin (Lipitor) 20 MG tablet Benign essential hypertension (CMS/HCC) Our specific goals, for your hypertension, is to keep your blood pressure less than 140/90, and the importance of weight control. We made recommendations on how to control your blood pressure, and minimize your risk of these copmplications. We also discussed your current barriers to a healthy living and importance of healthy diet and exercise. Prior to your visit today we have reviewed your chart and formed a plan to assist with providing you the best possible care. We reviewed the possible complications of hypertension including, stroke, heart failure and kidney impairment. In addition, we discussed your medications, the importance of taking them as prescribed. DASH diet handouts History of nephrolithiasis Increase fluids Paroxysmal atrial fibrillation ([facility]/HCC) Patient is on Eliquis, Diltiazem. Metoprolol and Tikosyn Obesity (BMI 30.0-34.9) Weight loss and exercise encouraged Medicare annual wellness visit, subsequent Colonoscopy every 10 years or Cologuard every 3 years ages 50-75 Flu Vaccine yearly Pneumovax and Prevnar Mammo yearly for women and PSA yearly for men Labs/Screening yearly to rule out Diabetes, Chronic Kidney disease and liver disease Hepatitis Screen forat risk populations Shingles vaccine after 65 if indicated Tetanus Vaccine every 10 years Lipids yearly under the age of 75 If Smoking history: one time CT scan of chest and Ultrasound of Aorta to screen for Anuerysm Type 2 diabetes mellitus without complications ([facility]/HCC) No Tobacco use Follow ADA 1800 diet low carbohydrate Continue Med Compliance Goal LDL less than 100 Goal BP 130/80 Goal HgbA1c < 7.0% Monitor Feet, monitor for infection Needs Exercise Yearly eye exams Prior to your visit today we reviewed your chart and outlined testing and treatment needed for your care. Reviewed poissble complications of diabetes including, loss of vision, kidney failure and increased risk of heart attacks and stroke. We made recommendations on how to control your blood sugars, and minimize your risk of these complications. We discussed your current barriers to a healthy living and importance of healthy diet and exercise. Relevant Medications atorvastatin (Lipitor) 20 MG tablet Other Relevant Orders POCT Glycated hemoglobin, total (Completed) Microalbumin / creatinine urine ratio Other Visit Diagnoses Routine general medical examination at health care facility - Primary Orders Placed This Encounter Procedures Microalbumin / creatinine urine ratio Standing Status: Future Number of Occurrences: 1 Standing Expiration Date: 08/02/2025 Order Specific Question: Print requisition? Answer: No POCT Glycated hemoglobin, total Electronically signed by Erin Owens MD on August 02, 2024 Associated Problem(s): Obesity (BMI 30.0-34.9) Weight loss and exercise encouraged Associated Problem(s): Type 2 diabetes mellitus without complications (CMS/HCC) No Tobacco use Follow ADA 1800 diet low carbohydrate Continue Med Compliance Goal LDL less than 100 Goal BP 130/80 Goal HgbA1c < 7.0% Monitor Feet, monitor for infection Needs Exercise Yearly eye exams Prior to your visit today we reviewed your chart and outlined testing and treatment needed for your care. Reviewed poissble complications of diabetes including, loss of vision, kidney failure and increased risk of heart attacks and stroke. We made recommendations on how to control your blood sugars, and minimize your risk of these complications. We discussed your current barriers to a healthy living and importance of healthy diet and exercise. Associated Problem(s): Benign essential hypertension (CMS/HCC) Our specific goals, for your hypertension, is to keep your blood pressure less than 140/90, and the importance of weight control. We made recommendations on how to control your blood pressure, and minimize your risk of these copmplications. We also discussed your current barriers to a healthy living and importance of healthy diet and exercise. Prior to your visit today we have reviewed your chart and formed a plan to assist with providing you the best possible care. We reviewed the possible complications of hypertension including, stroke, heart failure and kidney impairment. In addition, we discussed your medications, the importance of taking them as prescribed. DASH diet handouts documented in this encounter [facility] 07-08-2024 History of Present illness Narrative Skin Check Location: Patient requests a skin examination from the waist up, A full body skin exam was offered, patient declined Dermatologic history: no history of skin cancer, no history of atypical moles, no family history of melanoma Last visit: First skin exam New patient Lesions: Location: back Duration: years Quality: denies pain, denies itch, denies bleeding Modifying factors: denies Associated symptoms: dark spots Treatments: none All pertinent medical history, medications, and allergies were reviewed. General Exam: alert, oriented to person, place, and time, normal affect, well appearing Unaccompanied A complete skin exam was offered, pt declined. Areas not examined despite medical recommendation: From the waist down Scalp, Examined , exam limited by hair Head, Face Examined Neck Examined Chest Examined Back Examined Abdomen Examined Right arm Examined Left arm Examined Hands Examined Digits,nails: Examined Lymphatics: Not examined 1. Seborrheic keratosis Face, Trunk, Arms Stuck on verrucous, soriano-brown papules and plaques. Patient was counseled regarding these benign growths. Removal is normally not necessary, but they may be removed if they are symptomatic or for cosmetic reasons. 2. Lentigo simplex Face, Trunk Scattered soriano macules in sun-exposed areas. The patient was informed that lentigines are benign pigmented lesions that occur on sun-exposed and sun-damaged skin. No treatment is necessary. Recommended regular use of broad spectrum sunscreen SPF 30 or higher 3. Melanocytic nevus of trunk Trunk Scattered benign appearing, regular brown to light brown melanocytic papules and macules with similar morphology Counseled regarding these benign growths. Rarely, a nevus can develop into malignant melanoma, so any changing nevi should be promptly re-evaluated. Next Visit: 1 year documented in this encounter [facility] 06-28-2024 History of Present illness Narrative Associated Problem(s): Seasonal allergies D/W patient risks and benefits of steroid injection. Dimpling at site of injection, Increased sugars potentially if Diabetic, Avascular necrosis. Patient has had in past with no adverse reaction. Answered all questions about steroid shot. Associated Problem(s): OLIVER (obstructive sleep apnea) Never got a CPAP uses mouth piece Associated Problem(s): Benign essential hypertension (CMS/HCC) Our specific goals, for your hypertension, is to keep your blood pressure less than 140/90, and the importance of weight control. We made recommendations on how to control your blood pressure, and minimize your risk of these copmplications. We also discussed your current barriers to a healthy living and importance of healthy diet and exercise. Prior to your visit today we have reviewed your chart and formed a plan to assist with providing you the best possible care. We reviewed the possible complications of hypertension including, stroke, heart failure and kidney impairment. In addition, we discussed your medications, the importance of taking them as prescribed. 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 HPI Hypertension Additional comments: PT NEEDS TO SCHEDULE MAWV Last edited by Mariah Perry MA on 06/28/2024 7:38 AM. Subjective Patient ID: Yannick Mayers is a 68 y.o. male who presents for Hypertension (PT NEEDS TO SCHEDULE MAWV). Yannick is in today for a 4 month follow up on his hypertension. 135/85 at home for his BP Hypertension This is a chronic problem. The current episode started more than 1 year ago. The problem is unchanged. The problem is controlled. Pertinent negatives include no chest pain or shortness of breath. There are no associated agents to hypertension. Risk factors for coronary artery disease include male gender. Current Outpatient Medications on File Prior to Visit Medication Sig Dispense Refill KLOR-CON 20 MEQ ER tablet Take 20 mEq by mouth in the morning and 20 mEq before bedtime. acyclovir (Zovirax) 200 MG capsule Take 200 mg by mouth in the morning and 200 mg before bedtime. PRN. albuterol HFA (ProAir HFA) 90 mcg/act inhaler Inhale 2 puffs every 6 (six) hours if needed for shortness of breath or wheezing. ascorbic acid (Vitamin C) 500 MG tablet Take 500 mg by mouth in the morning. cholecalciferol (Vitamin D-3) 25 MCG (1000 UT) tablet Take 1,000 Units by mouth in the morning. dilTIAZem CD (Cardizem CD) 180 MG 24 hr capsule Take 1 capsule by mouth in the morning. Patient takes as needed for episodes of A. fib. dofetilide (Tikosyn) 250 MCG capsule Take 1 capsule by mouth in the morning and 1 capsule before bedtime. fluticasone (Flonase) 50 MCG/ACT nasal spray Administer 2 sprays into each nostril Daily Shake gently. Before first use, prime pump. After use, clean tip and replace cap. PRN hydroCHLOROthiazide (HYDRODiuril) 25 MG tablet Take 1 tablet (25 mg) by mouth Daily 90 tablet 3 ibuprofen 200 MG tablet Take 200 mg by mouth every 6 (six) hours if needed. Krill Oil ([place]-3) 500 MG capsule Take 500 mg by mouth in the morning. metoprolol succinate XL (Toprol-XL) 50 MG 24 hr tablet Take 50 mg by mouth Daily Multiple Vitamin (multivitamin) tablet Take 1 tablet by mouth in the morning. omega-3 (fish oil) 1200 MG capsule Take 1,200 mg by mouth in the morning. tiZANidine (Zanaflex) 2 MG capsule TAKE 1 TO 2 CAPSULES BY MOUTH AT BEDTIME NEEDED FOR BACK PAIN 60 capsule 0 [DISCONTINUED] Eliquis 5 MG tablet Take 1 tablet by mouth in the morning and 1 tablet before bedtime. No current facility-administered medications on file prior to visit. I have reviewed and reconciled the history and medication list with the patient today. Allergies Allergen Reactions Erythromycin Erythromycin Base rash Social History Tobacco Use Smoking status: Some Days Types: Cigars Smokeless tobacco: Never Vaping Use Vaping status: Never Used Substance Use Topics Alcohol use: Yes Alcohol/week: 21.0 standard drinks of alcohol Types: 12 Cans of beer, 9 Shots of liquor per week Comment: Caffeine intake: 1-2 cups per day coffee Drug use: Never Family History Problem Relation Name Age of Onset Cancer Mother SHREE MAYERS Aneurysm Mother SHREE MAYERS Esophageal cancer Father Cancer Maternal Grandmother Rafael Cancer Maternal Grandfather NIRALI DELEON No Known Problems Paternal Grandmother No Known Problems Paternal Grandfather Cancer Brother P yaritza Past Medical History: Diagnosis Date Allergic rhinitis Arthritis Asthma (CMS/HCC) Atrial fibrillation (CMS/HCC) COVID-19 Gastroesophageal reflux disease without esophagitis 02/11/2023 Hiatal hernia w/ severe reflux High risk medication use 03/06/2017 Last Assessment & Plan: Arrived in [place] for initiation of Tikosyn at 500 mg every 12 hours. Baseline in SR 390/424 ms. Prolonged to 512/512 after second dose Dose decreased to 250 mcg. accounting office manager notified, she will call his pharmacy to correct dose Serial EKGs to assess QT/QTc. Electrolyte replacement as necessary. Continuous telemetry History of nephrolithiasis 02/11/2023 Hyperlipidemia (CMS/HCC) Hypertension (CMS/HCC) Irregular heart rate 05/12/2023 Kidney stones Left ventricular systolic dysfunction 02/11/2023 Localized osteoarthritis of right shoulder 02/11/2023 Low back pain without sciatica 02/11/2023 Mitral valve regurgitation 02/11/2023 Mixed hyperlipidemia ([facility]) 02/11/2023 Obesity (BMI 30.0-34.9) 03/05/2017 Last Assessment & Plan: Patient physically active in hospital, frequently ambulating Recommend cardiac diet OLIVER (obstructive sleep apnea) 01/10/2016 PAF (paroxysmal atrial fibrillation) ([facility]) 12/26/2016 Added automatically from request for surgery [id number] Last Assessment & Plan: S/P AF ablation x 2. LINQ in place. Tikosyn load. Continue Eliquis. 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 HENT: Positive for postnasal drip and rhinorrhea. Respiratory: Negative for shortness of breath. Cardiovascular: Negative for chest pain. Gastrointestinal: Negative for constipation, diarrhea, nausea and vomiting. Musculoskeletal: Negative for back pain and gait problem. Neurological: Negative. Negative for dizziness and facial asymmetry. Objective Physical Exam Vitals reviewed. Constitutional: Appearance: Normal appearance. HENT: Head: Normocephalic. Neck: Vascular: No carotid bruit. Cardiovascular: Rate and Rhythm: Normal rate. Rhythm irregular. Pulses: Normal pulses. Pulmonary: Effort: Pulmonary effort is normal. Breath sounds: Normal breath sounds. Neurological: General: No focal deficit present. Mental Status: He is alert and oriented to person, place, and time. Psychiatric: Mood and Affect: Mood normal. Assessment/Plan Problem List Items Addressed This Visit Seasonal allergies D/W patient risks and benefits of steroid injection. Dimpling at site of injection, Increased sugars potentially if Diabetic, Avascular necrosis. Patient has had in past with no adverse reaction. Answered all questions about steroid shot. Relevant Medications triamcinolone acetonide (Kenalog-40) injection 40 mg (Start on 06/28/2024 9:15 AM) Benign essential hypertension (CMS/HCC) Our specific goals, for your hypertension, is to keep your blood pressure less than 140/90, and the importance of weight control. We made recommendations on how to control your blood pressure, and minimize your risk of these copmplications. We also discussed your current barriers to a healthy living and importance of healthy diet and exercise. Prior to your visit today we have reviewed your chart and formed a plan to assist with providing you the best possible care. We reviewed the possible complications of hypertension including, stroke, heart failure and kidney impairment. In addition, we discussed your medications, the importance of taking them as prescribed. 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 Relevant Medications apixaban (Eliquis) 5 MG tablet Other Relevant Orders Testosterone, total and free CBC and differential PSA Lipid panel Comprehensive metabolic panel TSH W/REFLEX TO FT4 OLIVER (obstructive sleep apnea) - Primary Never got a CPAP uses mouth piece Neutropenia, unspecified (CMS/HCC) Resolved Other thrombophilia (CMS/HCC) On Eliquis No evidence of bleeding Relevant Medications apixaban (Eliquis) 5 MG tablet Other fatigue Relevant Orders Testosterone, total and free CBC and differential PSA Lipid panel Comprehensive metabolic panel TSH W/REFLEX TO FT4 Erectile disorder Relevant Medications sildenafil (Viagra) 100 MG tablet Other Relevant Orders Testosterone, total and free Follow up in about 6 months (around 12/26/2024). documented in this encounter [facility] 05-12-2024 Telephone encounter Note Hydrochlorothiazide sent. Potassium added back to his med list. [facility] 05-12-2024 Miscellaneous Notes Hydrochlorothiazide sent. Potassium added back to his med list. Pt states he HAS been taking both the hydrochlorothiazide and the potassium he only needs the hydrochlorothiazide sent into [facility] now I honestly cannot tell what happened. I do not see it in his medication list when he saw Cardiology in January. Then it was marked as discontinued at his OV in February with Dr. Owens. Looks like the potassium was stopped at that time also. Has he been taking them both? It looks as though dr owens discontinued this med, please advise Pt called stating he needs a script hydro-something filled. I don't see it on his med list. He said Dr Owens prescribed it for his BP. He would like it sent to [facility] documented in this encounter [facility] 05-12-2024 Telephone encounter Note Pt states he HAS been taking both the hydrochlorothiazide and the potassium he only needs the hydrochlorothiazide sent into [facility] now [facility] 05-12-2024 Telephone encounter Note I honestly cannot tell what happened. I do not see it in his medication list when he saw Cardiology in January. Then it was marked as discontinued at his OV in February with Dr. Owens. Looks like the potassium was stopped at that time also. Has he been taking them both? [facility] 05-12-2024 Telephone encounter Note It looks as though dr owens discontinued this med, please advise [facility] 05-12-2024 Telephone encounter Note Pt called stating he needs a script hydro-something filled. I don't see it on his med list. He said Dr Owens prescribed it for his BP. He would like it sent to [facility] Karen T [facility] 01-12-2024 History of Present illness Narrative Subjective Yannick Mayers is a 68 y.o. male Chief Complaint Follow-up HPI Patient returns in follow-up of problems as noted. In the interim he has done well. He has occasional breakthroughs of atrial fibrillation lasting several hours. These occur maybe once a week. He is protected with anticoagulant therapy and it appears that dofetilide therapy probably cannot be increased based upon EKG measurements. We note that he is on amlodipine daily and and also lists diltiazem as a as needed medication. I proposed stopping amlodipine and switching to diltiazem because it not only is favorably affecting blood pressure but will prevent atrial fibrillation with rapid ventricular response. In regards to other matters he appears to be doing well. Blood pressure is controlled and he is tolerating anticoagulant therapy well. Increased BMI is noted and the merits of weight loss were advocated Vitals: 01/12/24 1006 BP: 136/86 BP Location: Right arm Patient Position: Sitting Pulse: 84 Weight: 104 kg (230 lb) Height: 1.791 m (5' 10.5 ) EKG done in office today Objective Physical Exam Constitutional: Appearance: Normal appearance. HENT: Nose: Nose normal. Neck: Vascular: No carotid bruit. Cardiovascular: Rate and Rhythm: Normal rate. Pulses: Normal pulses. Heart sounds: Normal heart sounds. Pulmonary: Effort: Pulmonary effort is normal. Abdominal: General: Bowel sounds are normal. Palpations: Abdomen is soft. Musculoskeletal: General: Normal range of motion. Cervical back: Normal range of motion. Right lower leg: No edema. Left lower leg: No edema. Skin: General: Skin is warm and dry. Neurological: General: No focal deficit present. Mental Status: He is alert. Psychiatric: Mood and Affect: Mood normal. Behavior: Behavior normal. Thought Content: Thought content normal. Judgment: Judgment normal. Allergies Patient has no known allergies. Current Medications Current Outpatient Medications: amLODIPine (Norvasc) 5 mg tablet, Take 1 tablet (5 mg) by mouth once daily., Disp: 90 tablet, Rfl: 3 apixaban (Eliquis) 5 mg tablet, Take 1 tablet (5 mg) by mouth 2 times a day., Disp: 180 tablet, Rfl: 3 ascorbic acid (Vitamin C) 500 mg tablet, Take 1 tablet (500 mg) by mouth once daily., Disp: , Rfl: cholecalciferol (Vitamin D-3) 50,000 unit capsule, Take 1 capsule (50,000 Units) by mouth once daily., Disp: , Rfl: dilTIAZem ER (Tiazac) 180 mg 24 hr capsule, Take 1 capsule (180 mg) by mouth once daily. (Patient taking differently: Take 1 capsule (180 mg) by mouth if needed.), Disp: 90 capsule, Rfl: 3 dofetilide (Tikosyn) 250 mcg capsule, Take 1 capsule (250 mcg) by mouth 2 times a day., Disp: 180 capsule, Rfl: 3 fluticasone (Flonase) 50 mcg/actuation nasal spray, Administer 2 sprays into each nostril if needed., Disp: , Rfl: metoprolol succinate XL (Toprol-XL) 50 mg 24 hr tablet, Take 1 tablet (50 mg) by mouth once daily., Disp: 90 tablet, Rfl: 3 multivitamin tablet, Take 1 tablet by mouth once daily., Disp: , Rfl: omega-3 fatty acids-fish oil (One-Per-Day [place]-3) 684-1,200 mg capsule, Take 1 capsule (1,200 mg) by mouth once daily., Disp: , Rfl: potassium chloride CR 20 mEq ER tablet, Take 1 tablet (20 mEq) by mouth 2 times a day., Disp: 180 tablet, Rfl: 3 tiZANidine (Zanaflex) 2 mg capsule, Take 1-2 capsules (2-4 mg) by mouth as needed at bedtime for muscle spasms., Disp: , Rfl: zinc gluconate 50 mg tablet, Take 1 tablet (50 mg) by mouth once daily., Disp: , Rfl: Assessment/Plan 1. Paroxysmal atrial fibrillation (Multi) Relatively good control. He has a history of 2 prior ablations. I am doubtful that a third ablation would have additional incremental benefit and because of this I recommend antiarrhythmic therapy as is. We also discussed the possibility of in the future using amiodarone. - Follow Up In Cardiology 2. Essential hypertension, benign Adequate control based upon review - Follow Up In Cardiology 3. Anticoagulated Well-tolerated without complaint or side effect - Follow Up In Cardiology 4. High risk medication use QTc measured and acceptable. I believe it slightly exaggerated by the PVCs that are occurring on his EKG - Follow Up In Cardiology 5. Obesity (BMI 30.0-34.9) Weight control was discussed. Caloric restriction was advocated 6. Never smoked tobacco Congratulated on this lifestyle choices Scribe Attestation By signing my name below, I, Jacob Waddell LPN attest that this documentation has been prepared under the direction and in the presence of Fernando Nova MD. Provider Attestation - Scribe documentation All medical record entries made by the Scribe were at my direction and personally dictated by me. I have reviewed the chart and agree that the record accurately reflects my personal performance of the history, physical exam, discussion and plan. documented in this encounter [facility] Work Phone: 01-12-2024 Instructions Carolyn Schroeder CMA - 01/12/2024 9:50 AM EDT Please bring all medicines, vitamins, and herbal supplements with you when you come to the office. Prescriptions will not be filled unless you are compliant with your follow up appointments or have a follow up appointment scheduled as per instruction of your physician. Refills should be requested at the time of your visit. documented in this encounter [facility] Work Phone: 05-07-2022 Hospital Discharge instructions Follow Up Care 05/07/2022 15:35:33 With:SHAYLEE SCOTT, Mary Gomez, URL Address: [facility] [address] [place] [address]- [phone] When: Unknown [facility] Karen 05-07-2022 Hospital Discharge instructions Patient Education 05/07/2022 15:23:38 Calorie Counting for Weight Loss Calorie Counting for Weight Loss Calories are units of energy. Your body needs a certain amount of calories from food to keep you going throughout the day. When you eat more calories than your body needs, your body stores the extra calories as fat. When you eat fewer calories than your body needs, your body brito fat to get the energy it needs. Calorie counting means keeping track of how many calories you eat and drink each day. Calorie counting can be helpful if you need to lose weight. If you make sure to eat fewer calories than your body needs, you should lose weight. Ask your health care provider what a healthy weight is for you. For calorie counting to work, you will need to eat the right number of calories in a day in order to lose a healthy amount of weight per week. A dietitian can help you determine how many calories you need in a day and will give you suggestions on how to reach your calorie goal. A healthy amount of weight to lose per week is usually 1 2 lb (0.5 0.9 kg). This usually means that your daily calorie intake should be reduced by 500 750 calories. Eating 1,200 1,500 calories per day can help most women lose weight. Eating 1,500 1,800 calories per day can help most men lose weight. What is my plan? My goal is to have calories per day. If I have this many calories per day, I should lose around pounds per week. What do I need to know about calorie counting? In order to meet your daily calorie goal, you will need to: Find out how many calories are in each food you would like to eat. Try to do this before you eat. Decide how much of the food you plan to eat. Write down what you ate and how many calories it had. Doing this is called keeping a food log. To successfully lose weight, it is important to balance calorie counting with a healthy lifestyle that includes regular activity. Aim for 150 minutes of moderate exercise (such as walking) or 75 minutes of vigorous exercise (such as running) each week. Where do I find calorie information? The number of calories in a food can be found on a Nutrition Facts label. If a food does not have a Nutrition Facts label, try to look up the calories online or ask your dietitian for help. Remember that calories are listed per serving. If you choose to have more than one serving of a food, you will have to multiply the calories per serving by the amount of servings you plan to eat. For example, the label on a package of bread might say that a serving size is 1 slice and that there are 90 calories in a serving. If you eat 1 slice, you will have eaten 90 calories. If you eat 2 slices, you will have eaten 180 calories. How do I keep a food log? Immediately after each meal, record the following information in your food log: What you ate. Don't forget to include toppings, sauces, and other extras on the food. How much you ate. This can be measured in cups, ounces, or number of items. How many calories each food and drink had. The total number of calories in the meal. Keep your food log near you, such as in a small notebook in your pocket, or use a mobile celi or website. Some programs will calculate calories for you and show you how many calories you have left for the day to meet your goal. What are some calorie counting tips? Use your calories on foods and drinks that will fill you up and not leave you hungry: ?Some examples of foods that fill you up are nuts and nut butters, vegetables, lean proteins, and high-fiber foods like whole grains. High-fiber foods are foods with more than 5 g fiber per serving. ?Drinks such as sodas, specialty coffee drinks, alcohol, and juices have a lot of calories, yet do not fill you up. Eat nutritious foods and avoid empty calories. Empty calories are calories you get from foods or beverages that do not have many vitamins or protein, such as candy, sweets, and soda. It is better to have a nutritious high-calorie food (such as an avocado) than a food with few nutrients (such as a bag of chips). Know how many calories are in the foods you eat most often. This will help you calculate calorie counts faster. Pay attention to calories in drinks. Low-calorie drinks include water and unsweetened drinks. Pay attention to nutrition labels for low fat or fat free foods. These foods sometimes have the same amount of calories or more calories than the full fat versions. They also often have added sugar, starch, or salt, to make up for flavor that was removed with the fat. Find a way of tracking calories that works for you. Get creative. Try different apps or programs if writing down calories does not work for you. What are some portion control tips? Know how many calories are in a serving. This will help you know how many servings of a certain food you can have. Use a measuring cup to measure serving sizes. You could also try weighing out portions on a kitchen scale. With time, you will be able to estimate serving sizes for some foods. Take some time to put servings of different foods on your favorite plates, bowls, and cups so you know what a serving looks like. Try not to eat straight from a bag or box. Doing this can lead to overeating. Put the amount you would like to eat in a cup or on a plate to make sure you are eating the right portion. Use smaller plates, glasses, and bowls to prevent overeating. Try not to multitask (for example, watch TV or use your computer) while eating. If it is time to eat, sit down at a table and enjoy your food. This will help you to know when you are full. It will also help you to be aware of what you are eating and how much you are eating. What are tips for following this plan? Reading food labels Check the calorie count compared to the serving size. The serving size may be smaller than what you are used to eating. Check the source of the calories. Make sure the food you are eating is high in vitamins and protein and low in saturated and trans fats. Shopping Read nutrition labels while you shop. This will help you make healthy decisions before you decide to purchase your food. Make a grocery list and stick to it. Cooking Try to cook your favorite foods in a healthier way. For example, try baking instead of frying. Use low-fat dairy products. Meal planning Use more fruits and vegetables. Half of your plate should be fruits and vegetables. Include lean proteins like poultry and fish. How do I count calories when eating out? Ask for smaller portion sizes. Consider sharing an entree and sides instead of getting your own entree. If you get your own entree, eat only half. Ask for a box at the beginning of your meal and put the rest of your entree in it so you are not tempted to eat it. If calories are listed on the menu, choose the lower calorie options. Choose dishes that include vegetables, fruits, whole grains, low-fat dairy products, and lean protein. Choose items that are boiled, broiled, grilled, or steamed. Stay away from items that are buttered, battered, fried, or served with cream sauce. Items labeled crispy are usually fried, unless stated otherwise. Choose water, low-fat milk, unsweetened iced tea, or other drinks without added sugar. If you want an alcoholic beverage, choose a lower calorie option such as a glass of wine or light beer. Ask for dressings, sauces, and syrups on the side. These are usually high in calories, so you should limit the amount you eat. If you want a salad, choose a garden salad and ask for grilled meats. Avoid extra toppings like evans, cheese, or fried items. Ask for the dressing on the side, or ask for olive oil and vinegar or lemon to use as dressing. Estimate how many servings of a food you are given. For example, a serving of cooked rice is cup or about the size of half a baseball. Knowing serving sizes will help you be aware of how much food you are eating at restaurants. The list below tells you how big or small some common portion sizes are based on everyday objects: ?1 oz 4 stacked dice. ?3 oz 1 deck of cards. ?1 tsp 1 . ?1 Tbsp a ping-pong ball. ?2 Tbsp 1 ping-pong ball. ? cup baseball. ?1 cup 1 baseball. Summary Calorie counting means keeping track of how many calories you eat and drink each day. If you eat fewer calories than your body needs, you should lose weight. A healthy amount of weight to lose per week is usually 1 2 lb (0.5 0.9 kg). This usually means reducing your daily calorie intake by 500 750 calories. The number of calories in a food can be found on a Nutrition Facts label. If a food does not have a Nutrition Facts label, try to look up the calories online or ask your dietitian for help. Use your calories on foods and drinks that will fill you up, and not on foods and drinks that will leave you hungry. Use smaller plates, glasses, and bowls to prevent overeating. This information is not intended to replace advice given to you by your health care provider. Make sure you discuss any questions you have with your health care provider. Document Released: 07/21/2006 Document Revised: 04/09/2019 Document Reviewed: 06/20/2017 [email or web address] Patient Education 2020 [employer]. 05/07/2022 15:23:23 Kidney Stones, [id number] Kidney Stones Kidney stones are rock-like masses that form inside of the kidneys. Kidneys are organs that make pee (urine). A kidney stone may move into other parts of the urinary tract, including: The tubes that connect the kidneys to the bladder (ureters). The bladder. The tube that carries urine out of the body (urethra). Kidney stones can cause very bad pain and can block the flow of pee. The stone usually leaves your body (passes) through your pee. You may need to have a doctor take out the stone. What are the causes? Kidney stones may be caused by: A condition in which certain glands make too much parathyroid hormone (primary hyperparathyroidism). A buildup of a type of crystals in the bladder made of a chemical called uric acid. The body makes uric acid when you eat certain foods. Narrowing (stricture) of one or both of the ureters. A kidney blockage that you were born with. Past surgery on the kidney or the ureters, such as gastric bypass surgery. What increases the risk? You are more likely to develop this condition if: You have had a kidney stone in the past. You have a family history of kidney stones. You do not drink enough water. You eat a diet that is high in protein, salt (sodium), or sugar. You are overweight or very overweight (obese). What are the signs or symptoms? Symptoms of a kidney stone may include: Pain in the side of the belly, right below the ribs (flank pain). Pain usually spreads (radiates) to the groin. Needing to pee often or right away (urgently). Pain when going pee (urinating). Blood in your pee (hematuria). Feeling like you may vomit (nauseous). Vomiting. Fever and chills. How is this treated? Treatment depends on the size, location, and makeup of the kidney stones. The stones will often pass out of the body through peeing. You may need to: Drink more fluid to help pass the stone. In some cases, you may be given fluids through an IV tube put into one of your veins at the hospital. Take medicine for pain. Make changes in your diet to help keep kidney stones from coming back. Sometimes, medical procedures are needed to remove a kidney stone. This may involve: A procedure to break up kidney stones using a beam of light (laser) or shock waves. Surgery to remove the kidney stones. Follow these instructions at home: Medicines Take [id number] and prescription medicines only as told by your doctor. Ask your doctor if the medicine prescribed to you requires you to avoid driving or using heavy machinery. Eating and drinking Drink enough fluid to keep your pee pale yellow. You may be told to drink at least 8 10 glasses of water each day. This will help you pass the stone. If told by your doctor, change your diet. This may include: ?Limiting how much salt you eat. ?Eating more fruits and vegetables. ?Limiting how much meat, poultry, fish, and eggs you eat. Follow instructions from your doctor about eating or drinking restrictions. General instructions Collect pee samples as told by your doctor. You may need to collect a pee sample: ?24 hours after a stone comes out. ?8 12 weeks after a stone comes out, and every 6 12 months after that. Strain your pee every time you pee (urinate), for as long as told. Use the strainer that your doctor recommends. Do not throw out the stone. Keep it so that it can be tested by your doctor. Keep all follow-up visits as told by your doctor. This is important. You may need follow-up tests. How is this prevented? To prevent another kidney stone: Drink enough fluid to keep your pee pale yellow. This is the best way to prevent kidney stones. Eat healthy foods. Avoid certain foods as told by your doctor. You may be told to eat less protein. Stay at a healthy weight. Where to find more information National Kidney Foundation (NKF): www.kidney.org Urology Care Foundation (UCF): www.urologyhealth.org Contact a doctor if: You have pain that gets worse or does not get better with medicine. Get help right away if: You have a fever or chills. You get very bad pain. You get new pain in your belly (abdomen). You pass out (faint). You cannot pee. Summary Kidney stones are rock-like masses that form inside of the kidneys. Kidney stones can cause very bad pain and can block the flow of pee. The stones will often pass out of the body through peeing. Drink enough fluid to keep your pee pale yellow. This information is not intended to replace advice given to you by your health care provider. Make sure you discuss any questions you have with your health care provider. Document Released: 01/06/2009 Document Revised: 12/07/2019 Document Reviewed: 12/07/2019 [email or web address] Patient Education 2020 [employer]. Follow Up Care 05/06/2022 17:36:49 With:SHAYLEE SCOTT, Mary Gomez, URL Address: [address] [place] [address]- When:Within 3 Month(s) Comments:3 mo fu with metabolic work up and KUB [facility] 04-25-2022 Note OPERATIVE NOTE OPERATION DATE: 04/25/2022 PREOPERATIVE DIAGNOSIS: Right ureteral calculi. POSTOPERATIVE DIAGNOSIS: Right ureteral calculi. PROCEDURE: 1. Right ureteral ESWL. 2. Cystoscopy. 3. Right rigid ureteral dilation. 4. Right ureteroscopy. 5. Right Thulium laser lithotripsy of multiple right distal ureteral calculi. 6. Right ureteral stone basket extraction. 7. Placement of 6-Maltese variable length right ureteral stent. ANESTHESIA: General by LMA. COMPLICATION: None. INDICATIONS: Jose M Mayers is a 66-year-old gentleman who has at least one 8 mm distal right ureteral calculus causing pain and obstruction. He has other stones by CT scan within the kidney. He now presents for right ESWL and possible definitive stone manipulation and right stent placement. He has signed an informed consent for these procedures, after all the risks were explained to him in great detail. PROCEDURE: Patient was brought to the operating room and placed on the [employer] Mobile Electromagnetic Lithotripsy Treatment Table in the supine position. SCDs were placed on his lower extremities and turned on and functioning during the entire case. Time out was done by all parties in the room. We all agreed upon the patient's identification and the planned procedures for the patient. General anesthesia was then administered via LMA. We then brought the treatment head to his right flank. While using fluoroscopy, we identified the large distal right ureteral calculus and lined it up into the cross hairs. We then began applying shocks at power level 2.0 and increased to a maximum power level of 3.7. Intermittent fluoroscopy showed that there was fragmentation but not total fragmentation. We gave 3000 shocks and then terminated the procedure. Because the patient arrived to the operating room in pain, I elected to do ureteroscopy. Patient was repositioned into the modified dorsolithotomy position. His genitalia was sterilely prepped and draped in the usual fashion. All pressure points were satisfactorily padded. I started by passing a 22-Maltese Olympus Cystoscope per urethra and into the bladder. He had a penile urethral stricture through which I was able to pass the scope. The prostatic urethra was very long and obstructing. Chase endoscopy in the bladder showed no evidence of any tumors or stones. I then slid a Glidewire through the scope and cannulated the right ureter and the wire buckled at the stone. I ultimately had to pass an 8-Maltese rigid dilator over the wire in order to manipulate the wire beyond the stone, up into the kidney. I then dilated the distal ureter with the 10-Maltese dilator similarly. The cystoscope was removed. I then passed the semi-rigid ureteroscope adjacent to the wire, through the urethra, into the bladder and up the right ureter. I was able to get up to the large stone. I then passed a 300 angstrom Thulium laser fiber through the scope and made contact with the stone. I then began doing laser lithotripsy at one watt continuously. I was able to fragment the stone satisfactorily. A Zero-tip Nitinol Basket was used and the pieces were dumped in the base of the bladder. I then went back up the ureter with the scope, and to my surprise, there were more stones. I similarly used the laser fiber and did lithotripsy for all of these stones. These fragments were also similarly extracted with the basket and dumped in the base of the bladder. Upon completion, there was no evidence of stone remaining within the ureter. The ureteroscope was removed. I then backloaded the cystoscope and passed it over the wire, into the bladder, and then slid a 6-Maltese variable length right ureteral stent over the wire, up into the kidney. The wire was removed and there were good curls in the kidney and in the bladder. I then used the Edvivo evacuator to get all the stone pieces out from the base of the bladder. These were sent for stone analysis. The bladder was drained of its contents and the scope was then removed. He was then transferred to a gurbronx bed and wheeled to the PACU in stable condition. [facility] 04-22-2022 Hospital Discharge instructions Patient Education 04/22/2022 13:24:28 Kidney Stones, [id number] Kidney Stones Kidney stones are rock-like masses that form inside of the kidneys. Kidneys are organs that make pee (urine). A kidney stone may move into other parts of the urinary tract, including: The tubes that connect the kidneys to the bladder (ureters). The bladder. The tube that carries urine out of the body (urethra). Kidney stones can cause very bad pain and can block the flow of pee. The stone usually leaves your body (passes) through your pee. You may need to have a doctor take out the stone. What are the causes? Kidney stones may be caused by: A condition in which certain glands make too much parathyroid hormone (primary hyperparathyroidism). A buildup of a type of crystals in the bladder made of a chemical called uric acid. The body makes uric acid when you eat certain foods. Narrowing (stricture) of one or both of the ureters. A kidney blockage that you were born with. Past surgery on the kidney or the ureters, such as gastric bypass surgery. What increases the risk? You are more likely to develop this condition if: You have had a kidney stone in the past. You have a family history of kidney stones. You do not drink enough water. You eat a diet that is high in protein, salt (sodium), or sugar. You are overweight or very overweight (obese). What are the signs or symptoms? Symptoms of a kidney stone may include: Pain in the side of the belly, right below the ribs (flank pain). Pain usually spreads (radiates) to the groin. Needing to pee often or right away (urgently). Pain when going pee (urinating). Blood in your pee (hematuria). Feeling like you may vomit (nauseous). Vomiting. Fever and chills. How is this treated? Treatment depends on the size, location, and makeup of the kidney stones. The stones will often pass out of the body through peeing. You may need to: Drink more fluid to help pass the stone. In some cases, you may be given fluids through an IV tube put into one of your veins at the hospital. Take medicine for pain. Make changes in your diet to help keep kidney stones from coming back. Sometimes, medical procedures are needed to remove a kidney stone. This may involve: A procedure to break up kidney stones using a beam of light (laser) or shock waves. Surgery to remove the kidney stones. Follow these instructions at home: Medicines Take [id number] and prescription medicines only as told by your doctor. Ask your doctor if the medicine prescribed to you requires you to avoid driving or using heavy machinery. Eating and drinking Drink enough fluid to keep your pee pale yellow. You may be told to drink at least 8 10 glasses of water each day. This will help you pass the stone. If told by your doctor, change your diet. This may include: ?Limiting how much salt you eat. ?Eating more fruits and vegetables. ?Limiting how much meat, poultry, fish, and eggs you eat. Follow instructions from your doctor about eating or drinking restrictions. General instructions Collect pee samples as told by your doctor. You may need to collect a pee sample: ?24 hours after a stone comes out. ?8 12 weeks after a stone comes out, and every 6 12 months after that. Strain your pee every time you pee (urinate), for as long as told. Use the strainer that your doctor recommends. Do not throw out the stone. Keep it so that it can be tested by your doctor. Keep all follow-up visits as told by your doctor. This is important. You may need follow-up tests. How is this prevented? To prevent another kidney stone: Drink enough fluid to keep your pee pale yellow. This is the best way to prevent kidney stones. Eat healthy foods. Avoid certain foods as told by your doctor. You may be told to eat less protein. Stay at a healthy weight. Where to find more information National Kidney Foundation (NKF): www.kidney.org Urology Care Foundation (UCF): www.urologyhealth.org Contact a doctor if: You have pain that gets worse or does not get better with medicine. Get help right away if: You have a fever or chills. You get very bad pain. You get new pain in your belly (abdomen). You pass out (faint). You cannot pee. Summary Kidney stones are rock-like masses that form inside of the kidneys. Kidney stones can cause very bad pain and can block the flow of pee. The stones will often pass out of the body through peeing. Drink enough fluid to keep your pee pale yellow. This information is not intended to replace advice given to you by your health care provider. Make sure you discuss any questions you have with your health care provider. Document Released: 01/06/2009 Document Revised: 12/07/2019 Document Reviewed: 12/07/2019 [email or web address] Patient Education 2020 [employer]. Follow Up Care 04/17/2022 10:49:54 With:SHAYLEE SCOTT, Mary Gomez, URL Address: [facility] [address], [place] [address]- [phone] When: Unknown [facility] 10-17-2021 Note CARDIAC STRESS TEST Requesting Physician: Procedure Date:10/17/2021 INDICATIONS: 66-year-old male - Test is performed to evaluate for ischemic heart disease. PAST MEDICAL HISTORY: Positive for episodes of atrial fibrillation with previous cardiomyopathy (425.4). EXERCISE PROTOCOL: Donte Protocol with Lexiscan Injection. EKG AT REST: Sinus, regular in rate, first degree heart block, non-specific ST and T-wave changes. EXERCISE RESPONSE: Patient shows well controlled heart rate with exercise. Patient exercised for a total of seven and a half minutes for a workload equivalent of 10 METS. Patient was stopped because of knee pain. Maximum heart rate was 122, which is 79% of predicted maximum. Maximum blood pressure was 190/96. PHYSIOLOGIC RESPONSE: Patient showed occasional PVC during exercise and in the resting phase. No significant ST segment depression was seen during the time of the test and patient was asymptomatic during the time of the test. CONCLUSION: Patient has low probability of significant ischemic heart disease based on today's test. Patient shows cardiorespiratory fitness based on today's test. [facility] Signed and Approved by: DR JOEL ONEAL . 10/25/2021 08:52:00 [facility] Chief complaint Narrative - Reported YANNICK MAYERS is being seen for a consultation for. 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 Appointment Type:URO Office Visit [facility] Evaluation note No assessment inform ation available [facility] Work Phone: Evaluation note Diagnosis Paroxysmal atrial fibrillation (Multi) Atrial fibrillation Essential hypertension, benign Anticoagulated Encounter for long-term (current) use of anticoagulants High risk medication use Obesity (BMI 30.0-34.9) Never smoked tobacco documented in this encounter [facility] Work Phone: Evaluation note* Diagnosis Benign essential hypertension (CMS/HCC) Essential hypertension, benign documented in this encounter [facility]* Diagnosis Irregular heart rate- Primary OLIVER (obstructive sleep apnea) Obstructive sleep apnea (adult) (pediatric) PAF (paroxysmal atrial fibrillation) (CMS/HCC) Atrial fibrillation Primary hypertension (CMS/HCC) Unspecified essential hypertension Paroxysmal atrial fibrillation (CMS/HCC) Atrial fibrillation Routine general medical examination at health care facility- Primary Routine general medical examination at a health care facility Benign essential hypertension (CMS/HCC) Essential hypertension, benign Abnormal glucose tolerance test Impaired glucose tolerance test Nocturia Mixed hyperlipidemia (CMS/HCC) Mixed hyperlipidemia Medicare annual wellness visit, initial Need for hepatitis C screening test Special screening examination for other specified viral diseases Screening for malignant neoplasm of colon S/P ablation of atrial fibrillation Other postprocedural status OLIVER (obstructive sleep apnea) Obstructive sleep apnea (adult) (pediatric) PAF (paroxysmal atrial fibrillation) (CMS/HCC) Atrial fibrillation Primary hypertension (CMS/HCC) Unspecified essential hypertension OLIVER (obstructive sleep apnea)- Primary Obstructive sleep apnea (adult) (pediatric) PAF (paroxysmal atrial fibrillation) (CMS/HCC) Atrial fibrillation Benign essential hypertension (CMS/HCC) Essential hypertension, benign Paroxysmal atrial fibrillation (I48.0) Atrial fibrillation Benign essential hypertension (CMS/HCC)- Primary Essential hypertension, benign Paroxysmal atrial fibrillation (I48.0) Atrial fibrillation OLIVER (obstructive sleep apnea) Obstructive sleep apnea (adult) (pediatric) S/P ablation of atrial fibrillation Other postprocedural status Thrombosed external hemorrhoid- Primary External thrombosed hemorrhoids Paroxysmal atrial fibrillation (CMS/HCC) Atrial fibrillation Viral gastroenteritis Intestinal infection due to other organism, NEC OLIVER (obstructive sleep apnea)- Primary Obstructive sleep apnea (adult) (pediatric) Benign essential hypertension (CMS/HCC) Essential hypertension, benign Obesity (BMI 30.0-34.9) Paroxysmal atrial fibrillation (CMS/HCC) Atrial fibrillation OLIVER (obstructive sleep apnea)- Primary Obstructive sleep apnea (adult) (pediatric) Paroxysmal atrial fibrillation (CMS/HCC) Atrial fibrillation Neutropenia, unspecified (CMS/HCC) Neutropenia, unspecified Other thrombophilia (CMS/HCC) Benign essential hypertension (CMS/HCC) Essential hypertension, benign Seasonal allergies Allergic rhinitis, cause unspecified Other fatigue Erectile disorder documented in this encounter [facility]* Diagnosis Irregular heart rate- Primary OLIVER (obstructive sleep apnea) Obstructive sleep apnea (adult) (pediatric) PAF (paroxysmal atrial fibrillation) (CMS/HCC) Atrial fibrillation Primary hypertension (CMS/HCC) Unspecified essential hypertension Paroxysmal atrial fibrillation (CMS/HCC) Atrial fibrillation Routine general medical examination at health care facility- Primary Routine general medical examination at a health care facility Benign essential hypertension (CMS/HCC) Essential hypertension, benign Abnormal glucose tolerance test Impaired glucose tolerance test Nocturia Mixed hyperlipidemia (CMS/HCC) Mixed hyperlipidemia Medicare annual wellness visit, initial Need for hepatitis C screening test Special screening examination for other specified viral diseases Screening for malignant neoplasm of colon S/P ablation of atrial fibrillation Other postprocedural status OLIVER (obstructive sleep apnea) Obstructive sleep apnea (adult) (pediatric) PAF (paroxysmal atrial fibrillation) (CMS/HCC) Atrial fibrillation Primary hypertension (CMS/HCC) Unspecified essential hypertension OLIVER (obstructive sleep apnea)- Primary Obstructive sleep apnea (adult) (pediatric) PAF (paroxysmal atrial fibrillation) (CMS/HCC) Atrial fibrillation Benign essential hypertension (CMS/HCC) Essential hypertension, benign Paroxysmal atrial fibrillation (I48.0) Atrial fibrillation Benign essential hypertension (CMS/HCC)- Primary Essential hypertension, benign Paroxysmal atrial fibrillation (I48.0) Atrial fibrillation OLIVER (obstructive sleep apnea) Obstructive sleep apnea (adult) (pediatric) S/P ablation of atrial fibrillation Other postprocedural status Thrombosed external hemorrhoid- Primary External thrombosed hemorrhoids Paroxysmal atrial fibrillation (CMS/HCC) Atrial fibrillation Viral gastroenteritis Intestinal infection due to other organism, NEC OLIVER (obstructive sleep apnea)- Primary Obstructive sleep apnea (adult) (pediatric) Benign essential hypertension (CMS/HCC) Essential hypertension, benign Obesity (BMI 30.0-34.9) Paroxysmal atrial fibrillation (CMS/HCC) Atrial fibrillation OLIVER (obstructive sleep apnea)- Primary Obstructive sleep apnea (adult) (pediatric) Paroxysmal atrial fibrillation (CMS/HCC) Atrial fibrillation Neutropenia, unspecified (CMS/HCC) Neutropenia, unspecified Other thrombophilia (CMS/HCC) Benign essential hypertension (CMS/HCC) Essential hypertension, benign Seasonal allergies Allergic rhinitis, cause unspecified Other fatigue Erectile disorder Seborrheic keratosis- Primary Lentigo simplex Other dyschromia Melanocytic nevus of trunk Benign neoplasm of skin of trunk, except scrotum documented in this encounter [facility]* Diagnosis Irregular heart rate- Primary OLIVER (obstructive sleep apnea) Obstructive sleep apnea (adult) (pediatric) PAF (paroxysmal atrial fibrillation) (CMS/HCC) Atrial fibrillation Primary hypertension (CMS/HCC) Unspecified essential hypertension Paroxysmal atrial fibrillation (CMS/HCC) Atrial fibrillation Routine general medical examination at health care facility- Primary Routine general medical examination at a health care facility Benign essential hypertension (CMS/HCC) Essential hypertension, benign Abnormal glucose tolerance test Impaired glucose tolerance test Nocturia Mixed hyperlipidemia (CMS/HCC) Mixed hyperlipidemia Medicare annual wellness visit, initial Need for hepatitis C screening test Special screening examination for other specified viral diseases Screening for malignant neoplasm of colon S/P ablation of atrial fibrillation Other postprocedural status OLIVER (obstructive sleep apnea) Obstructive sleep apnea (adult) (pediatric) PAF (paroxysmal atrial fibrillation) (CMS/HCC) Atrial fibrillation Primary hypertension (CMS/HCC) Unspecified essential hypertension OLIVER (obstructive sleep apnea)- Primary Obstructive sleep apnea (adult) (pediatric) PAF (paroxysmal atrial fibrillation) ([facility]/HCC) Atrial fibrillation Benign essential hypertension (CMS/HCC) Essential hypertension, benign Paroxysmal atrial fibrillation (I48.0) Atrial fibrillation Benign essential hypertension (CMS/HCC)- Primary Essential hypertension, benign Paroxysmal atrial fibrillation (I48.0) Atrial fibrillation OLIVER (obstructive sleep apnea) Obstructive sleep apnea (adult) (pediatric) S/P ablation of atrial fibrillation Other postprocedural status Thrombosed external hemorrhoid- Primary External thrombosed hemorrhoids Paroxysmal atrial fibrillation (CMS/HCC) Atrial fibrillation Viral gastroenteritis Intestinal infection due to other organism, NEC OLIVER (obstructive sleep apnea)- Primary Obstructive sleep apnea (adult) (pediatric) Benign essential hypertension (CMS/HCC) Essential hypertension, benign Obesity (BMI 30.0-34.9) Paroxysmal atrial fibrillation (CMS/HCC) Atrial fibrillation OLIVER (obstructive sleep apnea)- Primary Obstructive sleep apnea (adult) (pediatric) Paroxysmal atrial fibrillation ([facility]/HCC) Atrial fibrillation Neutropenia, unspecified ([facility]) Neutropenia, unspecified Other thrombophilia ([facility]/HCC) Benign essential hypertension ([facility]/HCC) Essential hypertension, benign Seasonal allergies Allergic rhinitis, cause unspecified Other fatigue Erectile disorder Routine general medical examination at health care facility- Primary Routine general medical examination at a health care facility Type 2 diabetes mellitus without complications ([facility]) Benign essential hypertension ([facility]/HCC) Essential hypertension, benign Obesity (BMI 30.0-34.9) Mixed hyperlipidemia ([facility]/HCC) Mixed hyperlipidemia Paroxysmal atrial fibrillation ([facility]/HCC) Atrial fibrillation Medicare annual wellness visit, subsequent History of nephrolithiasis documented in this encounter [facility] HealthcareEvaluation note* Diagnosis Paroxysmal atrial fibrillation (Multi)- Primary Atrial fibrillation Essential hypertension, benign Prolonged Q-T interval on ECG Nonspecific abnormal electrocardiogram (ECG) (EKG) Anticoagulated Encounter for long-term (current) use of anticoagulants High risk medication use Obstructive sleep apnea syndrome Obstructive sleep apnea (adult) (pediatric) Obesity (BMI 30.0-34.9) Never smoked tobacco Elevated transaminase level documented in this encounter [facility] Work Phone: Evaluation note* Diagnosis Paroxysmal atrial fibrillation (Multi) Atrial fibrillation High risk medication use Anticoagulated Encounter for long-term (current) use of anticoagulants Essential hypertension, benign Sleep apnea, unspecified type Never smoked tobacco Obesity (BMI 30.0-34.9) documented in this encounter [facility] Work Phone: Evaluation note* Diagnosis Irregular heart rate- Primary OLIVER (obstructive sleep apnea) Obstructive sleep apnea (adult) (pediatric) PAF (paroxysmal atrial fibrillation) (CMS/HCC) Atrial fibrillation Primary hypertension (CMS/HCC) Unspecified essential hypertension Paroxysmal atrial fibrillation (CMS/HCC) Atrial fibrillation Routine general medical examination at health care facility- Primary Routine general medical examination at a health care facility Benign essential hypertension (CMS/HCC) Essential hypertension, benign Abnormal glucose tolerance test Impaired glucose tolerance test Nocturia Mixed hyperlipidemia (CMS/HCC) Mixed hyperlipidemia Medicare annual wellness visit, initial Need for hepatitis C screening test Special screening examination for other specified viral diseases Screening for malignant neoplasm of colon S/P ablation of atrial fibrillation Other postprocedural status OLIVER (obstructive sleep apnea) Obstructive sleep apnea (adult) (pediatric) PAF (paroxysmal atrial fibrillation) (CMS/HCC) Atrial fibrillation Primary hypertension (CMS/HCC) Unspecified essential hypertension OLIVER (obstructive sleep apnea)- Primary Obstructive sleep apnea (adult) (pediatric) PAF (paroxysmal atrial fibrillation) (CMS/HCC) Atrial fibrillation Benign essential hypertension (CMS/HCC) Essential hypertension, benign Paroxysmal atrial fibrillation (I48.0) Atrial fibrillation Benign essential hypertension (CMS/HCC)- Primary Essential hypertension, benign Paroxysmal atrial fibrillation (I48.0) Atrial fibrillation OLIVER (obstructive sleep apnea) Obstructive sleep apnea (adult) (pediatric) S/P ablation of atrial fibrillation Other postprocedural status Thrombosed external hemorrhoid- Primary External thrombosed hemorrhoids Paroxysmal atrial fibrillation (CMS/HCC) Atrial fibrillation Viral gastroenteritis Intestinal infection due to other organism, NEC OLIVER (obstructive sleep apnea)- Primary Obstructive sleep apnea (adult) (pediatric) Benign essential hypertension (CMS/HCC) Essential hypertension, benign Obesity (BMI 30.0-34.9) Paroxysmal atrial fibrillation (CMS/HCC) Atrial fibrillation OLIVER (obstructive sleep apnea)- Primary Obstructive sleep apnea (adult) (pediatric) Paroxysmal atrial fibrillation (CMS/HCC) Atrial fibrillation Neutropenia, unspecified (CMS/HCC) Neutropenia, unspecified Other thrombophilia Benign essential hypertension (CMS/HCC) Essential hypertension, benign Seasonal allergies Allergic rhinitis, cause unspecified Other fatigue Erectile disorder Routine general medical examination at health care facility- Primary Routine general medical examination at a health care facility Type 2 diabetes mellitus without complications Benign essential hypertension (CMS/HCC) Essential hypertension, benign Obesity (BMI 30.0-34.9) Mixed hyperlipidemia (CMS/HCC) Mixed hyperlipidemia Paroxysmal atrial fibrillation (CMS/HCC) Atrial fibrillation Medicare annual wellness visit, subsequent History of nephrolithiasis Left foot pain- Primary Pain in soft tissues of limb Pain and swelling of left lower leg Chronic bilateral low back pain without sciatica Paroxysmal atrial fibrillation (CMS/HCC) Atrial fibrillation documented in this encounter [facility] HealthcareEvaluation note* Diagnosis Irregular heart rate- Primary OLIVER (obstructive sleep apnea) Obstructive sleep apnea (adult) (pediatric) PAF (paroxysmal atrial fibrillation) (HCC) Atrial fibrillation Primary hypertension Unspecified essential hypertension Paroxysmal atrial fibrillation (HCC) Atrial fibrillation Routine general medical examination at [facility] care facility- Primary Routine general medical examination at a [facility] care facility Benign essential hypertension Essential hypertension, benign Abnormal glucose tolerance test Impaired glucose tolerance test Nocturia Mixed hyperlipidemia Mixed hyperlipidemia Medicare annual wellness visit, initial Need for hepatitis C screening test Special screening examination for other specified viral diseases Screening for malignant neoplasm of colon S/P ablation of atrial fibrillation Other postprocedural status OLIVER (obstructive sleep apnea) Obstructive sleep apnea (adult) (pediatric) PAF (paroxysmal atrial fibrillation) (HCC) Atrial fibrillation Primary hypertension Unspecified essential hypertension OLIVER (obstructive sleep apnea)- Primary Obstructive sleep apnea (adult) (pediatric) PAF (paroxysmal atrial fibrillation) (HCC) Atrial fibrillation Benign essential hypertension Essential hypertension, benign Paroxysmal atrial fibrillation (I48.0) Atrial fibrillation Benign essential hypertension- Primary Essential hypertension, benign Paroxysmal atrial fibrillation (I48.0) Atrial fibrillation OLIVER (obstructive sleep apnea) Obstructive sleep apnea (adult) (pediatric) S/P ablation of atrial fibrillation Other postprocedural status Thrombosed external hemorrhoid- Primary External thrombosed hemorrhoids Paroxysmal atrial fibrillation (HCC) Atrial fibrillation Viral gastroenteritis Intestinal infection due to other organism, NEC OLIVER (obstructive sleep apnea)- Primary Obstructive sleep apnea (adult) (pediatric) Benign essential hypertension Essential hypertension, benign Obesity (BMI 30.0-34.9) Paroxysmal atrial fibrillation (HCC) Atrial fibrillation OLIVER (obstructive sleep apnea)- Primary Obstructive sleep apnea (adult) (pediatric) Paroxysmal atrial fibrillation (HCC) Atrial fibrillation Neutropenia, unspecified Other thrombophilia ([facility]-HCC) Benign essential hypertension Essential hypertension, benign Seasonal allergies Allergic rhinitis, cause unspecified Other fatigue Erectile disorder Routine general medical examination at health care facility- Primary Routine general medical examination at a health care [facility] Type 2 diabetes mellitus without complications (HCC) Benign essential hypertension Essential hypertension, benign Obesity (BMI 30.0-34.9) Mixed hyperlipidemia Mixed hyperlipidemia Paroxysmal atrial fibrillation (HCC) Atrial fibrillation Medicare annual wellness visit, subsequent History of nephrolithiasis Seasonal allergies Allergic rhinitis, cause unspecified documented in this encounter [facility] HealthcareEvaluation note* Diagnosis Irregular heart rate- Primary OLIVER (obstructive sleep apnea) Obstructive sleep apnea (adult) (pediatric) PAF (paroxysmal atrial fibrillation) (HCC) Atrial fibrillation Primary hypertension Unspecified essential hypertension Paroxysmal atrial fibrillation (HCC) Atrial fibrillation Routine general medical examination at health care facility- Primary Routine general medical examination at a [facility] care [facility] Benign essential hypertension Essential hypertension, benign Abnormal glucose tolerance test Impaired glucose tolerance test Nocturia Mixed hyperlipidemia Mixed hyperlipidemia Medicare annual wellness visit, initial Need for hepatitis C screening test Special screening examination for other specified viral diseases Screening for malignant neoplasm of colon S/P ablation of atrial fibrillation Other postprocedural status OLIVER (obstructive sleep apnea) Obstructive sleep apnea (adult) (pediatric) PAF (paroxysmal atrial fibrillation) (HCC) Atrial fibrillation Primary hypertension Unspecified essential hypertension OLIVER (obstructive sleep apnea)- Primary Obstructive sleep apnea (adult) (pediatric) PAF (paroxysmal atrial fibrillation) (HCC) Atrial fibrillation Benign essential hypertension Essential hypertension, benign Paroxysmal atrial fibrillation (I48.0) Atrial fibrillation Benign essential hypertension- Primary Essential hypertension, benign Paroxysmal atrial fibrillation (I48.0) Atrial fibrillation OLIVER (obstructive sleep apnea) Obstructive sleep apnea (adult) (pediatric) S/P ablation of atrial fibrillation Other postprocedural status Thrombosed external hemorrhoid- Primary External thrombosed hemorrhoids Paroxysmal atrial fibrillation (HCC) Atrial fibrillation Viral gastroenteritis Intestinal infection due to other organism, NEC OLIVER (obstructive sleep apnea)- Primary Obstructive sleep apnea (adult) (pediatric) Benign essential hypertension Essential hypertension, benign Obesity (BMI 30.0-34.9) Paroxysmal atrial fibrillation (HCC) Atrial fibrillation OLIVER (obstructive sleep apnea)- Primary Obstructive sleep apnea (adult) (pediatric) Paroxysmal atrial fibrillation (HCC) Atrial fibrillation Neutropenia, unspecified Other thrombophilia ([facility]-HCC) Benign essential hypertension Essential hypertension, benign Seasonal allergies Allergic rhinitis, cause unspecified Other fatigue Erectile disorder Routine general medical examination at health care facility- Primary Routine general medical examination at a health care facility Type 2 diabetes mellitus without complications (HCC) Benign essential hypertension Essential hypertension, benign Obesity (BMI 30.0-34.9) Mixed hyperlipidemia Mixed hyperlipidemia Paroxysmal atrial fibrillation (HCC) Atrial fibrillation Medicare annual wellness visit, subsequent History of nephrolithiasis Elevated blood sugar- Primary Other abnormal glucose Paroxysmal atrial fibrillation (HCC) Atrial fibrillation documented in this encounter [facility] HealthcareEvaluation note* Diagnosis Paroxysmal atrial fibrillation (Multi)- Primary Atrial fibrillation High risk medication use Anticoagulated Encounter for long-term (current) use of anticoagulants Essential hypertension, benign Obstructive sleep apnea syndrome Obstructive sleep apnea (adult) (pediatric) Obesity (BMI 30.0-34.9) Never smoked tobacco Obesity, Class I, BMI 30-34.9 documented in this encounter [facility] Work Phone: History of Present illness Narrative* Patient is seen in consultation at request of his primary care physician for management of atrial fibrillation * Patient individual who had atrial fibrillation in the [facility] Previously he had an ejection fraction of 40% in the importance of restoring and maintaining sinus rhythm were emphasized to him and he understands its importance. Subsequently has undergone [address] [facility]. Unfortunately they are not successful and he is now 1 antiarrhythmic therapy to maintain rhythm. * He advises me he might be having a third ablation followed by surgical procedure as well. We discussed this in tremendous detail and I advised him that he is probably reaching the point of diminishing returns when it comes to subsequent invasive procedures which are an effort to eliminate his arrhyt hmia. I advised him that aggressive antiarrhythmic therapy might maintain rhythm and prevent development of cardiomyopathy and hence I endorse his current therapy but suggest he resume a potassium supplement he previously was taking because recently his potassium was 3.9. * He has been evaluated extensively and otherwise has no coronary disease. Recent echocardiogram performed at [facility] demonstrates normal ejection fraction. Because of all the above we believe his current pharmacologic therapy and plan of care to be adequate and appropriate. I encouraged him to maintain some dialogue with the doctor in [place] and ascertain what other interventions they plan to recommend. I advised the patient I am not opposed but I believe he might be disappointed that subsequent procedures or not beneficial because he appears difficult to cure of his arrhythmia after 2 ablations. * Extensive conversation regarding management strategies and his prior procedures as well as potential upcoming procedures was undertaken between him and his and they appear to be now better informed and pleased with my presentation of the matter at hand. -[facility] [employer] [employer] DO Work Phone: History of Present illness NarrativePatient returns in follow-up of problems as noted. In the interim sinus rhythm has been maintained and he has no arrhythmia symptomatology. Auscultation demonstrates irregular rhythm and an EKG demonstrates an acceptable QT interval. Management of his blood pressure is acceptable and arrhythmias controlled. He is tolerating anticoagulant therapy well without complication. He is congratulated on his continued tobacco abstinence but we did advocate the merits of diet weight loss and he understands our recommendation.[facility] [employer] DO Work Phone: Progress note No data available for this section [facility] reason for referral (narrative)* Consultation (Routine) - Authorized Specialty Diagnoses / Procedures Referred By Contac t Referred To Contact Cardiology Diagnoses Paroxysmal atrial fibrillation (Multi) Procedures Follow Up In Cardiology Fernando Nova MD [address], [address] [address] Jyoti Tirado MD [address] [facility] 2, [address] [address] Referral ID Status Reason Start Date Expiration Date V isits Requested Visits Authorized [id number] Authorized 01/12/2024 01/11/2025 1 1 * Cardiovascular (Routine) - Authorized Specialty Diagnoses / Procedures Referred By Contac t Referred To Contact Diagnoses Paroxysmal atrial fibrillation (Multi) Procedures ECG 12 Lead Fernando Nova MD [address], [address] [address] Referral ID Status Reason Start Date Expiration Date V isits Requested Visits Authorized [id number] Authorized 01/12/2024 01/11/2025 1 1 [facility] Work Phone: Summary Purpose Family History Unknown Family Member Name Dates Details Family history of atrial fib rillation: Brother(V17.49, Z82.49) Status:Active Unknown Family Member Name Dates Details Family history of atrial fib rillation: Brother(V17.49, Z82.49) Status:Active Unknown Family Member Name Dates Details Family history of atrial fib rillation: Brother(V17.49, Z82.49) Status:Active Unknown Family Member Name Dates Details Family history of atrial fib rillation: Brother(V17.49, Z82.49) Status:Active Unknown Family Member Name Dates Details Family history of atrial fib rillation: Brother(V17.49, Z82.49) Status:Active Unknown Family Member Name Dates Details Family history of atrial fib rillation: Brother(V17.49, Z82.49) Status:Active Advance Directives Advance Directive Response Recorded Date/ Time Advance Directives No April 3:56pm Advance Directive Response Recorded Date/ Time Advance Directives No November 28 12:53pm Chief Complaint and Reason for Visit Chief Complaint kidney pain passing blood Chief Complaint Admit Date Left foot pain, swellin December 04, 2024 11 :46am Chief Complaint YANNICK MAYERS is being seen for a 6 month follow-up of. Additional Source Comments (unrecognized sect ion and content) No Status Records FoundNo Status Records FoundNo Status Records FoundNo Status Records FoundNo Status Records FoundNo Status Records FoundNo Status Records FoundNo Status Records FoundNo Status Records Found INFORMATION SOURCE (unrecogn ized section and content) DATE CREATED AUTHOR 02/06/2018 [facility] DATE CREATED AUTHOR AUTHOR'S ORGANIZ ATION 12/27/2021 [facility] DATE CREATED AUTHOR AUTHOR'S ORGANIZ ATION 06/03/2022 [facility] DATE CREATED AUTHOR AUTHOR'S ORGANIZ ATION 09/16/2022 [facility] DATE CREATED AUTHOR AUTHOR'S ORGANIZ ATION 02/05/2023 [facility] DATE CREATED AUTHOR AUTHOR'S ORGANIZ ATION 05/11/2023 [facility] DATE CREATED AUTHOR AUTHOR'S ORGANIZ ATION 08/13/2024 [facility] DATE CREATED AUTHOR AUTHOR'S ORGANIZ ATION 11/29/2024 [facility] DATE CREATED AUTHOR AUTHOR'S ORGANIZ ATION 03/15/2025 [facility] Care Teams (unrecognized sec tion and content) Team Status: Inactive Member Role Status Dates Joel Onela MD Primary Care Provider Active Ebony Dietrich MD Emergency Provider Active Team Status: Active Member Role Status Dates Joel Oneal MD Primary Care Provider Active Ese Teacher Relationship Specialty Start Date End Date Erin Owens MD PCP - General Family Medicine 06/03/23 Ese Teacher Relationship Specialty Start Date End Date Erin Owens MD [address] [place] [address] PCP - General Family Medicine 02/11/23 Ese Teacher Relationship Specialty Start Date End Date Erin Owens MD [address] [place] [address] PCP - General Family Medicine 02/11/23 Ese Teacher Relationship Specialty Start Date End Date Erin Owens MD [address] [place] [address] PCP - General Family Medicine 02/11/23 Ese Teacher Relationship Specialty Start Date End Date Erin Owens MD [address] [place] [address] PCP - General Family Medicine 02/11/23 Ese Teacher Relationship Specialty Start Date End Date Erin Owens MD [address] [place] [address] PCP - General Family Medicine 02/11/23 Ese Teacher Relationship Specialty Start Date End Date Erin Owens MD [address] [place] [address] PCP - General Family Medicine 02/11/23 Ese Teacher Relationship Specialty Start Date End Date Erin Owens MD PCP - General Family Medicine 06/03/23 Ese Teacher Relationship Specialty Start Date End Date Erin Owens MD PCP - General Family Medicine 06/03/23 Team Status: Active Member Role Status Dates NON STAFF Primary Care Provider Active Team Status: Inactive Member Role Status Dates NON STAFF Primary Care Provider Active Start: December 04, 2024 End: December 04, 2024 Vandana Nunez APRN Attending Provider Active Start: December 04, 2024 End: December 04, 2024 Ese Teacher Relationship Specialty Start Date End Date Erin Owens MD [address] [facility] [address] [place] [address] PCP - General Family Medicine 02/11/23 Erin Owens MD [address] [facility] [address] [place] [address] PCP - ACO Reach 09/10/24 Ese Teacher Relationship Specialty Start Date End Date Erin Owens MD [address] [facility] [address] [place] [address] PCP - General Family Medicine 02/11/23 Erin Owens MD [address] [facility] [address] [place] [address] PCP - ACO Reach 09/10/24 Ese Teacher Relationship Specialty Start Date End Date Erin Owens MD [address] [facility] [address] [place] [address] PCP - General Family Medicine 02/11/23 Erin Owens MD [address] [place] [address] PCP - ACO Reach 09/10/24 Ese Teacher Relationship Specialty Start Date End Date Erin Owens MD [address] [place] [address] PCP - General Family Medicine 02/11/23 Erin Owens MD [address] [place] [address] PCP - ACO Reach 09/10/24 Ese Teacher Relationship Specialty Start Date End Date Erin Owens MD [address] [facility] [address] [place] [address] PCP - General Family Medicine 02/11/23 Erin Owens MD [address] [facility] [address] [place] [address] PCP - ACO Reach 09/10/24 Ese Teacher Relationship Specialty Start Date End Date Erin Owens MD [address] [facility] [address] [place] [address] PCP - General Family Medicine 02/11/23 Erin Owens MD [address] [facility] [address] [place] [address] PCP - ACO Reach 09/10/24 Ese Teacher Relationship Specialty Start Date End Date Erin Owens MD PCP - General Family Medicine 06/03/23 Goals (unrecognized section and content) Goals may be documented in a n alternate section No data available for this section No data available for this section No data available for this sectionGoals may be documented in an alternate section Reason for Visit (unrecogniz ed section and content) Reason Comments Follow-up 9 months Specialty Diagnoses / Procedures Referred By Contac t Referred To Contact Cardiology Diagnoses Paroxysmal atrial fibrillation (Multi) Essential hypertension, benign Anticoagulated High risk medication use Procedures Follow Up In Cardiology Fernando Nova MD [address] [place] [address], [address] [address] Fernando Nova MD [address] [place] [address], [address] [address] Referral ID Status Reason Start Date Expiration Date V isits Requested Visits Authorized [id number] Authorized 06/03/2023 06/02/2024 1 1 Reason Comments Hypertension PT NEEDS TO SCHEDULE MAWV Reason Comments Skin Check Reason Comments Medicare Annual Wellness Visit Subsequen t Question on CT the results PT Bp today is 160/90 Reason Comments Follow-up 9 month Specialty Diagnoses / Procedures Referred By Contac t Referred To Contact Cardiology Diagnoses Paroxysmal atrial fibrillation (Multi) Procedures Follow Up In Cardiology Fernando Nova MD Ibrahim, Hassan M, MD [address] [place] [address], [address] [address] Phone: tel: fax: Referral ID Status Reason Start Date Expiration Date V isits Requested Visits Authorized [id number] Authorized 01/12/2024 01/11/2025 1 1 Reason Comments Follow-up Bp, with ekg Specialty Diagnoses / Procedures Referred By Contac t Referred To Contact Diagnoses Paroxysmal atrial fibrillation (Multi) Procedures ECG 12 Lead Jyoti Tirado MD [address] [place] [address], [address] [address] Phone: tel: fax: Referral ID Status Reason Start Date Expiration Date V isits Requested Visits Authorized [id number] Authorized 09/01/2024 09/01/2025 1 1 Reason Comments Med Refill tizanidine Reason Comments steroid inj Reason Comments Follow-up 6 month Follow up fo r Atrial Fibrillation Specialty Diagnoses / Procedures Referred By Contac t Referred To Contact Cardiology Diagnoses Essential hypertension, benign Procedures Follow Up In Cardiology Jyoti Tirado MD [address] [place] [address] [address], [address] [address] Phone: tel: fax: Jyoti Tirado MD [address] [place] [address] [address], [address] [address] Phone: tel: fax: Referral ID Status Reason Start Date Expiration Date V isits Requested Visits Authorized [id number] Authorized 08/17/2024 08/17/2025 1 1 FOR RECORDS PERTAINING TO PATIENTS WHO ARE OR HAVE BEEN ENROLLED IN A CHEMICAL DEPENDENCY/SUBSTANCEABUSE PROGRAM, SOME INFORMATION MAY BE OMITTED. This clinical summary was aggregated from multiple sources. Caution should be exercised in using it in the provision of clinical care. This summary normalizes information from multiple sources, and as a consequence, information in this document may materially change the coding, format and clinical context of patient data. In addition, data may be omitted in some cases. CLINICAL DECISIONS SHOULD BE BASED ON THE PRIMARY CLINICAL RECORDS. [employer] provides no warranty or guarantee of the accuracy or completeness of information in this document.
[2025-04-13 13:17] LABS: Anion Gap 9.3; Blood Urea Nitrogen 10.0 mg/dL (7.0-18.0); Calcium 9.7 mg/dL (8.5-10.1); Carbon Dioxide 32.8 mmol/L (21.0-32.0); Chloride 106 mmol/L (98-107); Estimated GFR (African America >60 (>=60 mL/min/1.73m^2); Estimated GFR (Non-African Ame >60 (>=60 mL/min/1.73m^2); Glucose 115 mg/dL (74-106); Magnesium 2.0 mg/dL (1.8-2.4); Potassium 4.1 mmol/L (3.5-5.1); Sodium 144 mmol/L (136-145)
[2025-04-13 14:05] LABS: Hematocrit 43.9 % (42.0-54.0); Hemoglobin 15.1 g/dL (14.0-18.0); Immature Granulocytes Abs Auto 0.01 10^3/uL (0.00-0.03); Immature Granulocytes Pct Auto 0.2 % (0.0-0.5); Lymphocytes Absolute Auto 1.2 10^3/uL (1.2-3.8); Mean Corpuscular HGB Conc 34.4 g/dL (29.9-35.2); Mean Corpuscular Hemoglobin 35.4 pg (25.9-34.0); Mean Corpuscular Volume 102.8 fL (80.0-94.0); Platelet Count 128 10^3/uL (150-450); Red Blood Count 4.27 10^6/uL (4.70-6.10); White Blood Count 6.4 10^3/uL (4.0-11.0)
== END 2025-04-13 12:38 | disposition home or self-care (01) ==
LOC: LAB 12:40
PROVIDERS: PCP Family Medicine; Visit Provider Internal Medicine Cardiovascular Disease
DX: I48.0 Paroxysmal atrial fibrillation (principal); Z79.899 Other long term (current) drug therapy
CPT/HCPCS: 36415; 80048; 83735; 85025